=== PATIENT | male | born 1975 | race Caucasian/White ===

== ENCOUNTER 2022-06-11 11:22 | Outpatient (CLI) | payer MEDICAID, SELFPAY ==
--- NOTE | 2022-06-11 10:00 | DI.RAD_ITS ---
Exam(s) XR FOOT LT COMPLETE EXAM: XR FOOT LT COMPLETE CLINICAL HISTORY: L foot ulcer, neuropathic, L98.499. TECHNIQUE: 2D digital imaging was performed. Four views. Additional sesamoid view. COMPARISON: CR XR FOOT COMPLETE MIN 3V LT from 06/02/2022 FINDINGS: BONES: No acute fracture is present. No bony destructive lesion is seen. Heel spurs. Sesamoids are un remarkable. JOINTS: No dislocation present. Mild degenerative changes. Plantar arch is maintained. SOFT TISSUE: Linear metallic density again noted the plantar aspect of heel. Soft tissue swelling not ed at the medial aspect of the foot at the level of the MTP joints. No gas collection. IMPRESSION: Soft tissue swelling. DATA REPOSITORY: RADIATION DOSE DELIVERED:
== END 2022-06-11 11:42 ==
LOC: DI 11:27
PROVIDERS: PCP Family Medicine; Visit Provider Podiatrist Foot & Ankle Surgery
DX: L97.529 Non-pressure chronic ulcer of other part of left foot with unspecified severity (principal); M79.89 Other specified soft tissue disorders
CPT/HCPCS: 73630

== ENCOUNTER 2022-06-11 13:15 | Outpatient (CLI) | payer MEDICAID, SELFPAY | END 2022-06-11 13:16 | disposition home or self-care (01) | LOC: LBO 13:16 | PROVIDERS: PCP Family Medicine; Visit Provider Podiatrist Foot & Ankle Surgery | DX: L97.528 Non-pressure chronic ulcer of other part of left foot with other specified severity (principal); G62.9 Polyneuropathy, unspecified; R70.0 Elevated erythrocyte sedimentation rate | CPT/HCPCS: 36415; 80048; 85652; 86141; 85025 ==

== ENCOUNTER 2022-06-19 01:16 | Outpatient (CLI) | payer MEDICAID, SELFPAY ==
--- NOTE | 2022-06-19 07:45 | DI.MRI_ITS ---
Exam(s) MR LOWER EXTREMITY LT WO/W CLINICAL HISTORY: L foot ulcer, probe to bone,NEUROPATHIC ULCER,L98.535. TECHNIQUE: Multiplanar multisequence MRI was performed. CONTRAST MATERIAL: IV Contrast: 18 mL of Dotarem contrast administered. COMPARISON: 02 June 2022 and 19 June 2022 plain films FINDINGS: Exam is somewhat limited by motion and poor fat suppression particularly in the region of the toes. BONES/JOINTS: No fracture or contusion pattern. No bone lesions identified. The talar dome is smooth. evidence of osteomyelitis. Fluid seen posterior to the talocalcaneal joint. MUSCULOTENDINOUS STRUCTURES: Achilles tendon is intact. The planar fascia is unremarkable. flexor, e xtensor, and peroneal tendons are intact. SOFT TISSUES: Metallic artifact seen in the region of the plantar soft tissues at the level of the he el. A tiny metallic foreign body is noted on plain films. Additional metallic artifact is seen in t he plantar soft tissues at the level of the 1st MTP joint. There is edema and enhancement in the sof t tissues around the 1st MTP joint and proximal phalanx, greater medially. There is no drainable collection. IMPRESSION: Findings consistent with cellulitis at the level of the 1st metatarsal head and proximal phalanx. No abscess or osteomyelitis. Metallic foreign bodies. DATA REPOSITORY:
[2022-06-19] MEDS: Gadoterate meglumine 20 ML VIAL IVP (16:22)
[2022-06-19] MEDS: Normal Saline Flush 10 ML SYR IVP (16:22)
== END 2022-06-19 01:36 ==
LOC: DI 01:16
PROVIDERS: PCP Family Medicine; Visit Provider Podiatrist Foot & Ankle Surgery
DX: L97.528 Non-pressure chronic ulcer of other part of left foot with other specified severity (principal); L03.116 Cellulitis of left lower limb; M79.5 Residual foreign body in soft tissue
CPT/HCPCS: 73720

== ENCOUNTER → 2022-12-18 01:21 | Outpatient (CLI) | payer MEDICAID, SELFPAY ==
--- NOTE | 2022-12-18 | DI.MRI_ITS ---
Exam(s) MR LOWER EXTREMITY LT WO/W CLINICAL HISTORY: CHRONIC ULCER LT FOOT,L97.522,WORSENING WOUND,? BONE INFECTION. TECHNIQUE: Multiplanar multisequence MRI was performed. CONTRAST MATERIAL: IV Contrast: 20 mL of Dotarem contrast administered. COMPARISON: Interpreted without benefit of recent comparison plain films. FINDINGS: Exam is limited by motion. BONES/JOINTS: No fracture or contusion pattern. No bone lesions identified. No high signal or enhanc ement in the marrow. MUSCULOTENDINOUS STRUCTURES: Visualized tendons appear intact. SOFT TISSUES: A marker was placed over the area of concern at the plantar aspect at the level of the 1st MTP joint. There is a artifact is in this area in the skin which could represent air correspondi ng to the ulcer. There is no drainable collection. There is edema and postcontrast enhancement in t he soft tissues. This is consistent with cellulitis. IMPRESSION: Cellulitis and soft tissue wound at the plantar aspect and medial aspect at the level of the 1st MTP joint. No evidence of osteomyelitis. DATA REPOSITORY:
[2022-12-18] MEDS: Gadoterate meglumine 20 ML VIAL IVP (10:40)
[2022-12-18] MEDS: Normal Saline Flush 10 ML SYR IVP (10:41)
== END ==
PROVIDERS: PCP Family Medicine; Visit Provider Podiatrist Foot & Ankle Surgery
DX: L97.522 Non-pressure chronic ulcer of other part of left foot with fat layer exposed (principal); L03.90 Cellulitis, unspecified
CPT/HCPCS: 73720

== ENCOUNTER 2023-09-22 16:02 | Outpatient (REF) | payer MEDICAID, SELFPAY | END 2023-09-22 16:03 | disposition home or self-care (01) | LOC: LBN 16:02 | PROVIDERS: PCP Family Medicine; Visit Provider Podiatrist | DX: L97.528 Non-pressure chronic ulcer of other part of left foot with other specified severity (principal) | CPT/HCPCS: 87070; 87075; 87205 ==

== ENCOUNTER 2024-01-12 12:31 | Outpatient (CLI) | payer OTHER, SELFPAY ==
--- NOTE | 2024-01-12 12:00 | DI.RAD_ITS ---
Exam(s) XR FOOT RT COMPLETE EXAM: XR FOOT RT COMPLETE CLINICAL HISTORY: M79.671 pain Rt foot- Comparison views. TECHNIQUE: 2D digital imaging was performed. Three views. COMPARISON: None FINDINGS: BONES: No acute fracture is present. No bony destructive lesion is seen. Heel spurs. JOINTS: No dislocation present. Mild intertarsal degenerative changes. Plantar arch is maintained. SOFT TISSUE: Normal. IMPRESSION: Mild degenerative changes and heel spurs. DATA REPOSITORY: RADIATION DOSE DELIVERED:
--- NOTE | 2024-01-12 12:05 | DI.RAD_ITS ---
Exam(s) XR FOOT LT COMPLETE EXAM: XR FOOT LT COMPLETE CLINICAL HISTORY: L97.522 Patient MPJ ulcer right. OM?. TECHNIQUE: 2D digital imaging was performed. Three views. COMPARISON: CR XR FOOT LT COMPLETE from 06/11/2022 MR MR LOWER EXTREMITY LT WO/W from 06/19/2022 MR MR LOWER EXTREMITY LT WO/W from 12/18/2022 FINDINGS: BONES: No acute fracture is present. No bony destructive lesion is seen. Heel spurs. JOINTS: No dislocation present. Mild degenerative changes the intertarsal articulations. SOFT TISSUE: Soft tissue swelling again noted medial to 1st MTP joint. Linear metallic density again noted in plantar aspect beneath calcaneus. IMPRESSION: Soft tissue swelling medial to 1st MTP joint. No evidence of osteomyelitis. DATA REPOSITORY: RADIATION DOSE DELIVERED:
== END 2024-01-12 12:51 ==
PROVIDERS: PCP Family Medicine; Visit Provider Podiatrist
DX: L97.522 Non-pressure chronic ulcer of other part of left foot with fat layer exposed (principal); M79.671 Pain in right foot
CPT/HCPCS: 73630

== ENCOUNTER 2024-01-15 11:34 | Outpatient (CLI) | payer OTHER, SELFPAY ==
--- NOTE | 2024-01-15 11:45 | RT.EKG_ITS ---
APPROVED REPORT Exam: Resting ECG Reason for Exam: need for antibiotics for wound- sugguested by [facility] [place] Patient Location: O HR:85 bpm ECG Measurements Heart Rate 85 AXIS OR 164 P 62 QRSd 94 QRS 15 QT 378 T 34 QTc 450 Conclusion Sinus rhythm...normal P axis, V-rate 50- 99 Normal Electrocardiogram
== END 2024-01-15 11:35 | disposition home or self-care (01) ==
LOC: CARDOPNVT 11:34
PROVIDERS: PCP Family Medicine; Visit Provider Podiatrist
DX: R94.31 Abnormal electrocardiogram [ECG] [EKG]
CPT/HCPCS: 93005; 93010

== ENCOUNTER 2024-02-02 14:51 | Outpatient (CLI) | payer OTHER, SELFPAY ==
[2024-02-02 14:10] LABS: Abs Immature Grans 0.02 10^3/uL (0.0-0.06); Absolute Basophil Count 0.06 10^3/uL (0.0-0.2); Absolute Eosinophil Count 0.18 10^3/uL (0.0-0.7); Absolute Lymphocyte Count 2.48 10^3/uL (1.2-3.4); Absolute Monocyte Count 0.44 10^3/uL (0.1-0.8); Basophils % 0.7 %; Eosinophils % 2.2 %; HCT 44.2 % (40.0-50.0); Immature Grans % 0.2 %; Lymphocytes % 30.3 %; MCH 30.2 pg (27.0-33.0); MCHC 33.9 % (32.0-36.0); MCV 89 fL (80-95); MPV 10.1 fL (8.0-11.0); Monocytes % 5.4 %; Neutrophils % 61.2 %; Platelet Count 198 10^3/uL (130-400); RBC 4.97 10^6/uL (4.36-5.78); RDW 12.7 % (11.8-14.1); RDW-SD 41.6 fL; WBC 8.18 10^3/uL (4.4-10.8)
[2024-02-02 14:12] LABS: ESR 18 mm/hr (0-20)
[2024-02-02 14:17] LABS: Hemoglobin A1C 5.7 % (<5.7)
[2024-02-02 14:57] LABS: C-Reactive Protein 1.64 mg/dL (<or=0.5)
== END 2024-02-02 14:52 | disposition home or self-care (01) ==
LOC: LBO 14:53
PROVIDERS: PCP Family Medicine; Visit Provider Podiatrist
DX: L97.522 Non-pressure chronic ulcer of other part of left foot with fat layer exposed (principal); Z09 Encounter for follow-up examination after completed treatment for conditions other than malignant neoplasm; Z51.89 Encounter for other specified aftercare; M79.671 Pain in right foot; B07.0 Plantar wart; G62.9 Polyneuropathy, unspecified; L98.499 Non-pressure chronic ulcer of skin of other sites with unspecified severity; L84 Corns and callosities; L03.90 Cellulitis, unspecified
CPT/HCPCS: 36415; 85652; 83036; 85025; 86140

== ENCOUNTER 2024-02-26 01:42 | Outpatient (CLI) | payer OTHER, SELFPAY ==
--- NOTE | 2024-02-26 06:15 | DI.MRI_ITS ---
Exam(s) MR LOWER EXTREMITY LT WO EXAM: MR LOWER EXTREMITY LT WO CLINICAL HISTORY: Osteomyelitis 1st MPJ,ulcer lt foot,m86.9,l97.522 TECHNIQUE: Multiplanar multisequence MRI was performed without intravenous contrast. COMPARISON: MR MR LOWER EXTREMITY LT WO/W from 12/18/2022 CR XR FOOT LT COMPLETE from 01/12/2024 FINDINGS: Quality of images on this study is significantly limited by motion artifact on all sequences. Many s equences were repeated but still exhibit motion artifact SKIN: There is an ulcer on the undersurface of the foot subjacent to the head of the great toe metata rsal. BONES/JOINTS: No evidence of fracture. There is a small joint effusion in the great toe metatarsopha langeal joint. There are mild degenerative changes in this joint. There is no intraosseous signal a bnormality to suggest osteomyelitis in the great toe metatarsal head and proximal phalanx. With resp ect to the sesamoid bones at this level, the more lateral of the 2 sesamoid bones exhibits normal mar row signal. However, the more medial of the 2 sesamoid bones at this level exhibits mild marrow hypo intensity on T1 images and mild increased signal on STIR sequence but difficult to assess accurately because of the amount of motion artifact here. There is no other suspicious intraosseous signal abno rmality in the field of view. SOFT TISSUES: More posteriorly in the foot there is assessed barely artifact in the heel pad region. This is explained by the thin metallic wire foreign body seen in the subcutaneous tissues at this lo cation on prior plain films. IMPRESSION: 1. Ulcer on the undersurface of the great toe. No evidence of osteomyelitis in the great toe metatar dea, metatarsal head and phalanges of the great toe. 2. However, the more medial of the 2 sesamoid bones subjacent to the great toe metatarsal head exhibi ts very subtle signal abnormality. It would be difficult to make a diagnosis of osteomyelitis with t his finding and the amount of motion artifact here and without IV contrast injection. The adjacent m ore lateral the 2 sesamoid bones at this level exhibits normal intraosseous signal. 3. Foreign body causing artifact in the posterior aspect of the undersurface of the foot, as describe d above. DATA REPOSITORY:
== END 2024-02-26 02:02 ==
LOC: DI 01:42
PROVIDERS: PCP Family Medicine; Visit Provider Podiatrist
DX: M86.9 Osteomyelitis, unspecified (principal); L97.522 Non-pressure chronic ulcer of other part of left foot with fat layer exposed
CPT/HCPCS: 73718

== ENCOUNTER 2024-03-07 12:57 | Outpatient (CLI) | payer OTHER, SELFPAY ==
[2024-03-07 12:17] LABS: Abs Immature Grans 0.02 10^3/uL (0.0-0.06); Absolute Basophil Count 0.06 10^3/uL (0.0-0.2); Absolute Eosinophil Count 0.29 10^3/uL (0.0-0.7); Absolute Monocyte Count 0.83 10^3/uL (0.1-0.8); Basophils % 0.6 %; Eosinophils % 2.7 %; HCT 42.7 % (40.0-50.0); HGB 14.7 g/dL (13.5-17.5); Immature Grans % 0.2 %; MCH 30.3 pg (27.0-33.0); MCHC 34.4 % (32.0-36.0); MCV 88 fL (80-95); MPV 10.3 fL (8.0-11.0); Monocytes % 7.8 %; Neutrophils % 54.7 %; Platelet Count 206 10^3/uL (130-400); RBC 4.85 10^6/uL (4.36-5.78); RDW 12.5 % (11.8-14.1); RDW-SD 40.7 fL
[2024-03-07 12:19] LABS: ESR 20 mm/hr (0-20)
[2024-03-07 13:11] LABS: C-Reactive Protein 2.36 mg/dL (<or=0.5)
== END 2024-03-07 12:58 | disposition home or self-care (01) ==
LOC: LBO 12:58
PROVIDERS: PCP Family Medicine; Visit Provider Podiatrist
DX: M86.9 Osteomyelitis, unspecified (principal)
CPT/HCPCS: 36415; 85652; 85025; 86140

== ENCOUNTER 2024-03-07 13:12 | Outpatient (CLI) | payer OTHER, SELFPAY ==
--- NOTE | 2024-03-07 11:00 | DI.RAD_ITS ---
Exam(s) XR FOOT LT COMPLETE EXAM: XR FOOT LT COMPLETE CLINICAL HISTORY: OM? M86.9 OSTEOMYELITIS. TECHNIQUE: 2D digital imaging was performed of the left foot. Four images were obtained. AP, obliq ue and lateral views were obtained. COMPARISON: CR XR FOOT LT COMPLETE from 01/12/2024 MR MR LOWER EXTREMITY LT WO from 02/26/2024 FINDINGS: BONES: No acute fracture is present. There does appear to be loss of the cortex along the plantar georgiana face of the proximal phalanx of the great toe at the base (image 3). There is a small calcaneal oste ophyte. There is an enthesophyte at the posterior calcaneus. JOINTS: No dislocation present. SOFT TISSUE: No soft tissue gas is present. The previously seen linear metallic density in the soft tissues in the heel is no longer visualized. IMPRESSION: 1. Loss of the cortex at the base of the proximal phalanx of the great toe on the plantar surface. O steomyelitis should be considered. 2. Interval removal of the linear foreign body in the soft tissues of the heel. DATA REPOSITORY: RADIATION DOSE DELIVERED:
== END 2024-03-07 13:32 ==
LOC: DI 13:15
PROVIDERS: PCP Family Medicine; Visit Provider Podiatrist
DX: M86.9 Osteomyelitis, unspecified (principal)
CPT/HCPCS: 73630

== ENCOUNTER 2024-03-07 14:51 | Outpatient (REF) | payer OTHER, SELFPAY | END 2024-03-07 14:52 | disposition home or self-care (01) | LOC: LBN 14:51 | PROVIDERS: PCP Family Medicine; Visit Provider Podiatrist | DX: L03.90 Cellulitis, unspecified (principal); L97.522 Non-pressure chronic ulcer of other part of left foot with fat layer exposed | CPT/HCPCS: 87077; 87070; 87075; 87186; 87205 ==

== ENCOUNTER 2024-03-23 11:51 | Outpatient (CLI) | payer OTHER, SELFPAY ==
--- NOTE | 2024-03-23 10:45 | DI.RAD_ITS ---
Exam(s) XR FOOT LT COMPLETE EXAM: XR FOOT LT COMPLETE CLINICAL HISTORY: ulcer sub 1st met head, Osteomylitis M86.9. TECHNIQUE: 2D digital imaging was performed. COMPARISON: CR XR FOOT LT COMPLETE from 03/07/2024 FINDINGS: Four views. No evidence of fracture or diastasis of the Lisfranc joint. Mild hallux valgus. Great toe metatarso phalangeal joint otherwise unremarkable. There is mild pes planus. Moderate size inferior calcaneal spur noted as well as an enthesophyte on the posterior calcaneus Achilles insertion site There is no evidence of osteomyelitis in the metatarsals. On the tangential view there is no obvious evidence of osteomyelitis in the 2 sesamoid bones subjacent to the great toe metatarsal head. No ra diopaque foreign body. IMPRESSION: No obvious evidence of osteomyelitis. DATA REPOSITORY: RADIATION DOSE DELIVERED:
== END 2024-03-23 12:11 ==
LOC: DI 11:52
PROVIDERS: PCP Family Medicine; Visit Provider Podiatrist
DX: M86.9 Osteomyelitis, unspecified (principal)
CPT/HCPCS: 73630

== ENCOUNTER 2024-04-14 03:41 | Outpatient (CLI) | payer BC, SELFPAY ==
--- NOTE | 2024-04-14 12:34 | DI.RAD_ITS ---
Exam(s) XR FOOT LT COMPLETE EXAM: XR FOOT LT COMPLETE CLINICAL HISTORY: ulcer subfirst metarsal head,m86.9,osteomyelitis. TECHNIQUE: 2D digital imaging was performed of the left foot. Four images were obtained. AP, obliq ue and lateral views were obtained. COMPARISON: CR XR FOOT LT COMPLETE from 03/23/2024 FINDINGS: BONES: No acute fracture is present. No bony destructive lesion is seen. There is an enthesophyte at the posterior calcaneus. There is a small plantar calcaneal spur. JOINTS: No dislocation present. The joint spaces are well maintained. SOFT TISSUE: No soft tissue gas is present. IMPRESSION: No radiographic evidence to suggest osteomyelitis. DATA REPOSITORY: RADIATION DOSE DELIVERED:
== END 2024-04-14 04:01 ==
PROVIDERS: PCP Family Medicine; Visit Provider Podiatrist
DX: M77.32 Calcaneal spur, left foot (principal)
CPT/HCPCS: 73630

== ENCOUNTER 2024-05-30 12:36 | Outpatient (CLI) | payer BC, SELFPAY ==
--- NOTE | 2024-05-30 11:15 | DI.RAD_ITS ---
Exam(s) XR FOOT LT COMPLETE EXAM: XR FOOT LT COMPLETE CLINICAL HISTORY: osteomyelitis M86.9. TECHNIQUE: 2D digital imaging was performed of the left foot. Three images were obtained. AP, obli que and lateral views were obtained. COMPARISON: CR XR FOOT LT COMPLETE from 04/14/2024 FINDINGS: BONES: No acute fracture is present. No bony destructive lesion is seen. There is an enthesophyte at the posterior calcaneus. There is a small plantar calcaneal spur. JOINTS: No dislocation present. SOFT TISSUE: There appears to be a soft tissue defect on the plantar surface of the foot in the regio n of the 1st MTP joint. The underlying bones are intact. This may represent an ulcer. No soft tiss ue gas is seen. IMPRESSION: No radiographic evidence to suggest osteomyelitis. DATA REPOSITORY: RADIATION DOSE DELIVERED:
== END 2024-05-30 12:56 ==
LOC: DI 12:36
PROVIDERS: PCP Family Medicine; Visit Provider Podiatrist
DX: M86.9 Osteomyelitis, unspecified (principal)
CPT/HCPCS: 73630

== ENCOUNTER 2024-05-30 15:17 | Outpatient (CLI) | payer BC, SELFPAY ==
[2024-05-30 15:23] LABS: Abs Immature Grans 0.03 10^3/uL (0.0-0.06); Absolute Basophil Count 0.07 10^3/uL (0.0-0.2); Absolute Eosinophil Count 0.23 10^3/uL (0.0-0.7); Absolute Lymphocyte Count 3.02 10^3/uL (1.2-3.4); Absolute Monocyte Count 0.67 10^3/uL (0.1-0.8); Absolute Neutrophil Count 4.61 10^3/uL (1.2-6.7); Basophils % 0.8 %; Eosinophils % 2.7 %; HCT 49.5 % (40.0-50.0); HGB 16.5 g/dL (13.5-17.5); Immature Grans % 0.3 %; MCH 29.4 pg (27.0-33.0); MCHC 33.3 % (32.0-36.0); MCV 88 fL (80-95); MPV 9.7 fL (8.0-11.0); Monocytes % 7.8 %; Neutrophils % 53.4 %; Platelet Count 274 10^3/uL (130-400); RBC 5.62 10^6/uL (4.36-5.78); RDW 12.7 % (11.8-14.1); RDW-SD 41.1 fL; WBC 8.63 10^3/uL (4.4-10.8)
[2024-05-30 16:27] LABS: ALT 42 U/L (16-63); AST 28 U/L (15-37); Alkaline Phosphatase 87 U/L (46-116); Anion Gap 12.4 mmol/L (3-11); BUN 7 mg/dL (7-18); Bilirubin, Total 0.42 mg/dL (0.2-1.0); C-Reactive Protein 2.05 mg/dL (<or=0.5); CO2 26.6 mmol/L (21.0-32.0); CREATININE 0.9 mg/dL (0.70-1.30); Calcium 9.8 mg/dL (8.5-10.1); Chloride 104 mmol/L (98-107); Glucose 158 mg/dL (74-106); Potassium 3.9 mmol/L (3.5-5.1); Sodium 143 mmol/L (136-145); Total Protein 8.4 g/dL (6.4-8.2)
[2024-05-30 16:49] LABS: ESR 30 mm/hr (0-20)
== END 2024-05-30 15:18 | disposition home or self-care (01) ==
LOC: LBO 15:18
PROVIDERS: PCP Family Medicine; Visit Provider Podiatrist
DX: M86.9 Osteomyelitis, unspecified (principal); Z09 Encounter for follow-up examination after completed treatment for conditions other than malignant neoplasm; Z51.89 Encounter for other specified aftercare; L97.522 Non-pressure chronic ulcer of other part of left foot with fat layer exposed; M79.671 Pain in right foot; B07.0 Plantar wart; G62.9 Polyneuropathy, unspecified; L98.499 Non-pressure chronic ulcer of skin of other sites with unspecified severity; L84 Corns and callosities; L03.90 Cellulitis, unspecified
CPT/HCPCS: 36415; 80053; 85652; 85025; 86140

== ENCOUNTER 2024-08-04 02:01 | Outpatient (CLI) | payer BC, SELFPAY ==
--- NOTE | 2024-08-04 08:00 | DI.RAD_ITS ---
Exam(s) XR FOOT LT COMPLETE EXAM: XR FOOT LT COMPLETE CLINICAL HISTORY: Ulcer sub left 1st met head,osteomyelitis,m86.9. TECHNIQUE: 2D digital imaging was performed. Four views, with additional sesamoid view. COMPARISON: CR XR FOOT LT COMPLETE from 05/30/2024 FINDINGS: BONES: No acute fracture is present. No bony destructive lesion is seen. JOINTS: No dislocation present. Mild degenerative changes. SOFT TISSUE: Soft tissue swelling and ulcer around 1st metatarsal. IMPRESSION: No visible bony erosions. DATA REPOSITORY: RADIATION DOSE DELIVERED:
== END 2024-08-04 02:21 ==
LOC: DI 02:02
PROVIDERS: PCP Family Medicine; Visit Provider Podiatrist
DX: M86.9 Osteomyelitis, unspecified (principal)
CPT/HCPCS: 73630

== ENCOUNTER 2024-08-04 15:50 | Outpatient (CLI) | payer BC, SELFPAY ==
[2024-08-04 13:38] LABS: Abs Immature Grans 0.02 10^3/uL (0.0-0.06); Absolute Basophil Count 0.08 10^3/uL (0.0-0.2); Absolute Eosinophil Count 0.22 10^3/uL (0.0-0.7); Absolute Lymphocyte Count 3.23 10^3/uL (1.2-3.4); Absolute Monocyte Count 0.53 10^3/uL (0.1-0.8); Absolute Neutrophil Count 5.06 10^3/uL (1.2-6.7); Basophils % 0.9 %; Eosinophils % 2.4 %; HCT 45.7 % (40.0-50.0); HGB 15.7 g/dL (13.5-17.5); Immature Grans % 0.2 %; Lymphocytes % 35.3 %; MCH 30.4 pg (27.0-33.0); MCHC 34.4 % (32.0-36.0); MCV 89 fL (80-95); Monocytes % 5.8 %; Neutrophils % 55.4 %; Platelet Count 210 10^3/uL (130-400); RBC 5.16 10^6/uL (4.36-5.78); RDW 12.7 % (11.8-14.1); RDW-SD 41.4 fL; WBC 9.14 10^3/uL (4.4-10.8)
[2024-08-04 13:42] LABS: ESR 17 mm/hr (0-20)
[2024-08-04 14:33] LABS: Vitamin D 25 Total 32 ng/mL (30-100)
[2024-08-04 14:42] LABS: C-Reactive Protein 1.82 mg/dL (<or=0.5)
== END 2024-08-04 15:51 | disposition home or self-care (01) ==
LOC: LBO 15:51
PROVIDERS: PCP Family Medicine; Visit Provider Podiatrist
DX: M86.9 Osteomyelitis, unspecified (principal); L97.929 Non-pressure chronic ulcer of unspecified part of left lower leg with unspecified severity; R79.89 Other specified abnormal findings of blood chemistry
CPT/HCPCS: 36415; 82306; 85652; 85025; 86140

== ENCOUNTER 2024-12-28 14:23 | Outpatient (CLI) | payer MEDICAID, SELFPAY ==
--- NOTE | 2024-12-28 | DI.RAD_ITS ---
Exam(s) XR FOOT LT COMPLETE EXAM: XR FOOT LT COMPLETE CLINICAL HISTORY: non healing ulcer of left ext. TECHNIQUE: 2D digital imaging was performed. Four views with additional sesamoid view. COMPARISON: CR XR FOOT LT COMPLETE from 04/14/2024 CR XR FOOT LT COMPLETE from 05/30/2024 CR XR FOOT LT COMPLETE from 08/04/2024 FINDINGS: Exam is mildly limited by overlying socks. BONES: No acute fracture is present. There are erosions visible involving both medial and lateral 1st metatarsal sesamoids which were not apparent previously. The findings are suspicious for osteomyelitis. Heel spurs again noted. JOINTS: No dislocation present. There are degenerative changes at the talonavicular joint with dorsal spurring. SOFT TISSUE: There is soft tissue swelling and an ulcer at the plantar aspect beneath the level of the 1st metatarsal head. IMPRESSION: Erosions at both 1st metatarsal sesamoids with overlying soft tissue swelling and ulceration. The findings are suspicious for osteomyelitis. DATA REPOSITORY: RADIATION DOSE DELIVERED:
== END 2024-12-28 14:43 ==
LOC: DI 14:24
PROVIDERS: PCP Family Medicine; Visit Provider Podiatrist
DX: R93.89 Abnormal findings on diagnostic imaging of other specified body structures (principal)
CPT/HCPCS: 73630

== ENCOUNTER 2025-01-05 04:33 | Outpatient (CLI) | payer MEDICAID, SELFPAY ==
--- NOTE | 2025-01-05 08:00 | DI.MRI_ITS ---
Exam(s) MR LOWER EXTREMITY LT WO/W CLINICAL HISTORY: ? sesamoid osteo,? 1st mpj osteo,nonhealing ulcer lle, ulcer lt foot. TECHNIQUE: Multiplanar multisequence MRI was performed. CONTRAST MATERIAL: IV Contrast: 18 mL of Dotarem contrast administered. COMPARISON: Plain films 28 December 2024 FINDINGS: Exam is extremely limited by motion. BONES/JOINTS: The sesamoids are blurred by motion. The sequence with the least amount of blurring is the T1 axial and sagittal sequences with which suggest edema in both 1st metatarsal sesamoid bones. SOFT TISSUES: There is some soft tissue edema around the 1st metatarsal head. There is metallic artifact on at the plantar aspect of the foot at the level of the 1st and 2nd proximal phalanges. There is no drainable fluid collection or evidence of abscess. ENHANCEMENT: There is soft tissue enhancement surrounding the plantar base of the 1st metatarsal head. IMPRESSION: The exam is extremely limited by motion. There is abnormal signal in the 1st metatarsal sesamoids with abnormal signal and surrounding enhancement. There were suspicious findings on previous plain films. The findings are consistent with osteomyelitis. DATA REPOSITORY:
[2025-01-05] MEDS: Gadoterate meglumine 20 ML SYRINGE IVP (15:24)
[2025-01-05] MEDS: Normal Saline Flush 10 ML SYR IVP (15:24)
== END 2025-01-05 04:53 ==
LOC: DI 04:33
PROVIDERS: PCP Family Medicine; Visit Provider Podiatrist
DX: L97.522 Non-pressure chronic ulcer of other part of left foot with fat layer exposed
CPT/HCPCS: 73720

== ENCOUNTER 2025-01-09 09:54 | Day surgery (SDC) | payer MEDICAID, SELFPAY ==
--- NOTE | 2025-01-09 09:35 | DI.RAD_ITS ---
Exam(s) XR FOOT LT LIMITED EXAM: XR FOOT LT LIMITED CLINICAL HISTORY: Nonhealing ulcer of left lower extremity TECHNIQUE: 2D and realtime digital imaging was performed. CONTRAST MATERIAL: Refer to procedure report. COMPARISON: No exams were available for comparison FINDINGS: Fluoroscopy was provided for Dr. Glaser during the performance of a sesamoidectomy. Please refer to the procedure report for complete details. Ka,r=0.13 mGy IMPRESSION: RADIATION DOSE DELIVERED: 0.0 0.0 0
[2025-01-09 10:15] VITALS: BP 128/102; PULSE 80; RESP 14; TEMP 36.4; O2SAT 99
[2025-01-09] MEDS: Lactated Ringers 1,000 ML 80 ML IV (10:36)
--- NOTE | 2025-01-09 10:40 | W.ANESPRE ---
General Info Date of Service Date Performed: 01/09/25 Height: 5 ft 9 in Weight: 87.2 kg Body Mass Index (BMI): 28.3 Surgical Procedure: Operation Date: 01/09/25 11:40 Proposed Procedure Side Surgeon p Surgical Offloading of Sesamoidectomy VS Sesamoid Planning w/Tendon Achilles Lengthing Vs Gastroc Recession Left Jessie Glaser DPM Meds Allergies and Home Medications Allergies Allergy/AdvReac Type Severity Reaction Status Date / Time No Known Allergies Allergy Verified 01/09/25 10:03 Home Medication ?Medication ?Instructions ?Recorded amitriptyline 50 mg tablet 50 mg PO QHS 02/13/22 aspirin 81 mg tablet,delayed 81 mg PO DAILY 02/13/22 release pregabalin 150 mg capsule (Lyrica) 150 mg PO TID 05/27/22 cholecalciferol (vitamin D3) 50 50 mcg PO DAILY 09/21/23 mcg (2,000 unit) tablet methadone 40 mg soluble tablet 45 mg PO DAILY 09/21/23 metoprolol succinate 50 mg 50 mg PO DAILY 09/21/23 tablet,extended release 24 hr salicylic acid 17 % topical gel 1 applic topical DAILY #7 grams 12/15/23 phytonadione (vitamin K1) 5 mg 5 mg PO DAILY 08/04/24 tablet gentamicin 0.1 % topical cream 1 applic topical QID #30 grams 08/25/24 amoxicillin .ROUTE 01/09/25 Current Visit Medications: Current Medications Generic Name Dose Route Start Last Admin Trade Name Freq PRN Reason Stop Dose Admin Ringer's Solution 1,000 mls @ 80 mls/hr 01/09/25 06:00 01/09/25 10:36 IV 02/05/25 23:59 80 mls/hr INFUSION TRAV Administration Cefazolin Sodium/Dextrose 2 gm in 50 mls @ 100 mls/hr 01/09/25 06:00 Ancef Duplex IVPB 02/05/25 23:59 PREOP TRAV IV Miscellaneous Supplies 1 each 01/09/25 06:00 Iv Access IV 02/05/25 23:59 DIRECTED TRAV Sodium Chloride 0 ml 01/09/25 06:00 Normal Saline Flush 10 Ml Syr IV 02/05/25 23:59 PRN PRN Sodium Chloride 0 ml 01/09/25 06:00 Normal Saline 10 Ml Vial IJ 02/05/25 23:59 DIRECTED PRN Sterile Water 0 ml 01/09/25 06:00 Water,Injection,Sterile 10 Ml Vial IJ 02/05/25 23:59 DIRECTED PRN PFSH Active Problems Active Problems: Problem Status Onset Code Osteomyelitis of left foot Acute M86.9 Receiving intravenous antibiotic treatment as outpatient Acute Z79.2 Low vitamin D level Acute R79.89 Nonhealing ulcer of left lower extremity Acute L97.929 Osteomyelitis Acute M86.9 Cellulitis Acute L03.90 Plantar verruca Acute B07.0 Pain in right foot Acute M79.671 Ulcer of left foot with fat layer exposed Acute L97.522 Tachycardia Acute R00.0 Peripheral nerve disease Acute G62.9 Idiopathic peripheral neuropathy Acute G60.9 Hypertriglyceridemia Acute E78.1 Hypertension Chronic I10 Cellulitis of foot, right Acute L03.115 Foot ulcer, left Acute L97.529 Anemia Chronic D64.9 Vitamin D deficiency Acute E55.9 Tobacco user Acute Z72.0 Hyperlipidemia Acute E78.5 Corns and callosities Acute L84 Neuropathy Acute G62.9 Neuropathic ulcer Acute L98.499 Medical History Medical History Superior labrum glkidvzz-[id number]-[id number] (SLAP) tear of left shoulder Surgical History Surgical History S/P colonoscopy 04/13/2019 Tobacco Smoking/Tobacco Use Status: Current-Occasional Tobacco Type: cigarettes Smoking packs per day: 0.75 Smoking cigarettes per day: 15.0 Passive smoking exposure: No Alcohol Alcohol Intake: never Substance Use Substance use: Daily Substance use type: marijuana Details: inhaled, daily, 1 gram daily, last use 01/09/25. Vital Signs and Lab Results Vital Signs Most Recent Vital Signs in EMR: Most Recent Vital Signs Temp Pulse Resp BP Pulse Ox 36.4 C L 80 14 128/102 H 99 01/09/25 10:15 01/09/25 10:15 01/09/25 10:15 01/09/25 10:15 01/09/25 10:15 Imaging and Studies Imaging and Studies Study information below may be from another EMR and interpreted by another provider. Please see original notes in EMR for more complete details. EKG Summary: 01/15/24: Exam: Resting ECG Reason for Exam: need for antibiotics for wound- sugguested by [facility] [place] Patient Location: O HR:85 bpm ECG Measurements Heart Rate 85 AXIS NM 164 P 62 QRSd 94 QRS 15 QT 378 T34 QTc 450 Conclusion Sinus rhythm...normal P axis, V-rate 50- 99 Normal Electrocardiogram Anesthesia Assessment and Plan Anesthesia History Personal History: No History of Anesthesia Complications Family History: No Family History of Anesthesia Complications Exercise Tolerance Exercise Tolerance: Metabolic Equivalents>4 Cardiac & Pulmonary Exam Cardiac Exam: Normal S1/S2 Heart Sounds Pulmonary Exam: Clear Bilateral Breath Sounds Implantable Cardiac Device Does patient have a Pacemaker or an ICD?: No Airway Exam Known Difficult Airway: No Mallampati Class: 2 Mouth Opening: Normal (> 3cm) Thyromental Distance: Greater than 3 cm Neck Range of Motion: Full ROM Neck Circumference: Normal Teeth Condition: Generalized Poor Dentition ASA Classification ASA Score: ASA 3 Emergency Case?: No NPO Status NPO Status: NPO Clears >2 hours, Solids >8 hours Anesthesia Plan Resuscitation Status: Full Code Anesthesia Technique: General Anesthesia Airway Planned: LMA Monitors Used: Standard Monitors
[2025-01-09 10:43] VITALS: BMI 28.3
[2025-01-09] MEDS: ceFAZolin 2 GM/50 ML BAG IVPB (12:15)
[2025-01-09] MEDS: Lidocaine 1% Pres-Free 30 ML VIAL (12:49)
--- NOTE | 2025-01-09 13:10 | BONE_PTH ---
PATIENT: Jose Sibley LOC: [facility] U#:[id number] AGE/SX: 49/M ROOM: RE01/09/[address]: Jessie Glaser DPM : 1975 BED: DIS: 01/09/2025 SPEC #: [id number] RECD: 01/09/25 14:45 STATUS: LEVI REQ #: [id number] ANDREZ: 01/09/25 13:[address]: Jessie Glaser DEPT: Surgical Specimen RECD BY: Mona Martin ENTERED: 01/09/25 14:46 SP TYPE: Bone OTHR DR: Tino Fong Tissues: 1 - BONE BX/CURRETTE NOT PATH FRACTURE 2 - BONE BX/CURRETTE NOT PATH FRACTURE Procedures: GROSS AND MICRO LEVEL 3 DECALCIFICATION Comments: [id number]
[2025-01-09 14:12] VITALS: BP 180/96; PULSE 60; RESP 14; TEMP 36.1; O2SAT 97
--- NOTE | 2025-01-09 14:30 | DI.RAD_ITS ---
Exam(s) XR FOOT LT COMPLETE EXAM: XR FOOT LT COMPLETE CLINICAL HISTORY: Postop. TECHNIQUE: 2D digital imaging was performed. COMPARISON: CR XR FOOT LT COMPLETE from 12/28/2024 FINDINGS: 3 postop views No evidence of fracture nor diastasis of the Lisfranc joint. The sesamoid bones subjacent to the great toe metatarsal head are not evident on the present images. Great toe metatarsophalangeal joint otherwise appears unremarkable. IMPRESSION: Satisfactory postop appearance DATA REPOSITORY: RADIATION DOSE DELIVERED:
--- NOTE | 2025-01-09 14:30 | W.PM.DSUDISC ---
Date of service: 01/09/25 Discharge Plan Disposition Patient Disposition: Home Condition: Stable Discharge Details Attending Provider: Jessie Glaser Primary Care Provider: Tino Fong Home Meds and New Rx's Prescriptions: No Action amitriptyline 50 mg tablet 50 mg PO QHS aspirin 81 mg tablet,delayed release (DR/EC) 81 mg PO DAILY phytonadione (vitamin K1) 5 mg tablet 5 mg PO DAILY pregabalin [Lyrica] 150 mg capsule 150 mg PO TID methadone 40 mg tablet,soluble 45 mg PO DAILY metoprolol succinate 50 mg tablet extended release 24 hr 50 mg PO DAILY cholecalciferol (vitamin D3) 50 mcg (2,000 unit) tablet 50 mcg PO DAILY salicylic acid 17 % gel 1 applic topical DAILY Qty: 7 0RF Rx Instructions: apply to each wart gentamicin 0.1 % cream 1 applic topical QID Qty: 30 0RF amoxicillin .ROUTE Rx Instructions: twice daily Discharge Instructions Additional Instructions: Patient to keep the dressings clean, dry and intact. Do not put any weight on the left foot. Please use your knee scooter. You have an appointment on . Keep dressings clean, dry and intact do not remove the dressings. Do not let the dressings get wet. Stand Alone Forms: Podiatry Instructions-DSU Activity:: Elevate Remove Dressings/Wound Care:: Do Not Remove Shower/Bathe:: Cover Diet:: Normal Diet Discharge Orders Discharge Orders: Discharge Order (Routine); Ordered 01/09/25 Ordered By: Jessie Glaser
--- NOTE | 2025-01-09 14:32 | W.ANESPOSTOP ---
Postoperative Evaluation Date, Time and Location Date Performed: 01/09/25 Time Performed: 14:32 Patient Location: Day Surgery Unit Vital Signs Most Recent Imported Vital Signs: Most Recent Vital Signs Temp Pulse Resp BP Pulse Ox 36.1 C L 60 14 180/96 H 97 01/09/25 14:12 01/09/25 14:12 01/09/25 14:12 01/09/25 14:12 01/09/25 14:12 Pain Score Most Recent Pain Score: Most Recent Pain Score Pain Level 0 01/09/25 14:12 Assessment Mental Status: Awake (Alert & Oriented to Patient Baseline) Airway and Respiratory Function: Patent airway with normal (patient baseline) respiratory exam Cardiovascular Function: Hemodynamically Stable Hydration Status: Adequately Hydrated Nausea & Vomiting: No Nausea or Vomiting Pain: Pt. Denies Any Pain Peripheral Nerve Block: Patient did not receive a nerve block
--- NOTE | 2025-01-09 14:44 | ROE_ITS ---
Operative Note Operative Note PRE-OP DIAGNOSIS: Gastrocnemius equinus, left Sesamoid osteomyelitis, left foot Full-thickness, nonhealing ulcer, left foot POST-OP DIAGNOSIS: same PROCEDURE: Gastrocnemius recession, left Tibial and fibular sesamoidectomy, left Preparation of wound bed for graft application?EpiFix application and complex closure of wound, left foot SURGEON: Jessie Glaser ANESTHESIA TYPE: Local By Surgeon (10 mL lidocaine plain 1% preoperatively) and General:No Airway Refer to Anesthesia Record ESTIMATED BLOOD LOSS: 75 PATHOLOGY: other (Tibial and fibular sesamoid, left foot) TOURNIQUET TIME: 70 COMPLICATIONS: None Patient was transported to: same day Implants: EpiFix Indications: This is a 49-year-old nondiabetic male patient with gastrocnemius equinus to the left lower extremity with resultant chronic nonhealing ulcer subleft foot. Patient has exhausted all conservative care. Recent x-rays showed osteomyelitis. MRI was taken and reviewed and showed osteomyelitis. Patient has failed antibiotics at this time. I discussed the risks, benefits and possible complications of the procedure including but not limited to pain, nerve pain, calcaneal gait, CRPS, nerve pain, delayed healing, nonhealing, recurrence of ulceration, hallux varus, hallux abductovalgus, difficulty with toe off, need for further surgery or amputation. Patient was advised that once ulcer is healed he will most likely require fusion of the first metatarsophalangeal joint to help restore gait. Patient understood and agreed. Medical clearance in. No contraindications to the procedure. Chart reviewed. Images were reviewed. Findings: Gastrocnemius equinus. Full-thickness ulcer subleft first metatarsal head measuring approximately 1 cm x 1 cm Procedure Description: Patient was brought to the operating room placed on the operating table in supine position. After induction of general and anesthesia, a thigh tourniquet was applied. A shama-incisional block was applied 2 cm distal to the gastrocnemius muscle belly medially as well as a proximal first metatarsal head block. The left lower extremity was then scrubbed, prepped and draped in the usual aseptic manner. An Esmarch was used for an sanguinous patient. The thigh tourniquet was then inflated. Next, an incision was planned approximately 2 cm distal to the gastrocnemius muscle belly at the medial aspect of the left leg. An incision was made using a sterile #15 blade through the skin and subcutaneous tissue. The fascia was then dissected using a sterile #15 blade, blunt dissection was then carried out to expose the muscle belly. The gastrocnemius aponeurosis was then identified. Next, the appropriate plane was identified using the plane finder. Next, the clear slotted cannula with the obturator was then inserted, an incision was then made laterally for the lateral portal. The cannula inadvertently came out, this was then reinserted, the directionality was noted to be different and another lateral portal incision was made using a sterile #15 blade. The cannula was then cleaned with the sterile swabs provided by the research professor of biostatistics. Next the scope was used to identify the correct plane which was then identified, the neurovascular bundle was not identified within the surgical site. A rasp was then used to rasp the aponeurosis. Next, the blade was used to cut the tendon medially, this was then reversed and then cut laterally. Excellent visualization was maintained throughout the procedure. The neurovascular bundle and was not identified throughout the procedure. The ankle was dorsiflexed and the equinus contracture was noted to be vastly removed. The incision site was then flushed with copious amounts of sterile saline. The fascia was then closed using 3-0 Vicryl. The skin was then reapproximated and coapted using 3-0 Prolene. Attention was then directed to the plantar aspect of the left foot where a full- thickness ulceration was needed subfirst metatarsal head. The medial sesamoid was easily palpated. Using a sterile #15 blade an incision was made full-t hickness to the level of bone, the medial sesamoid was then identified and removed using a rongeur after blunt dissection with a Orange, the medial sesamoid was then passed from the operative field to be sent to microbiology and pathology. Next, the lateral sesamoid was palpated and decision was made to make a 5 cm length near an longitudinal incision for adequate exposure this was made full-thickness, the FHL tendon was protected throughout the procedure. A sterile #15 blade was used for sharp dissection and exposure to the lateral sesamoid. The lateral sesamoid was then resected using a rongeur. This was then passed from the operative field. The medial sesamoid was passed from the operative field and sent to microbiology and pathology. Cultures were then obtained and sent. The incision site was flushed with copious amounts of sterile saline. EpiFix graft was then applied the tourniquet was then deflated. The incision site was then closed with 3 oh as well as 2-0 Prolene. The successfully closed the previous ulcer. An attempt was made at application of the jovan wound graft however, this was unsuccessful since there was leaks. This was then removed. Dressings were then applied with Xeroform gauze, 4 x 4, Kerlix. A posterior splint was then applied followed by an Tacos wrap with the ankle in dorsiflexed position to prevent readhesion. Patient is to keep the dressings clean, dry and intact. Patient was sent pain medication. He has an appointment to follow-up on . Date of Procedure: 01/09/25
[2025-01-09 15:00] VITALS: BP 134/93; PULSE 63; RESP 16; TEMP 36.5; O2SAT 95
== END 2025-01-09 15:10 | disposition home or self-care (01) ==
PROVIDERS: PCP Family Medicine; Visit Provider Podiatrist
PROC: (CPT 27687; principal; 2025-01-09 11:30)
DX: L97.522 Non-pressure chronic ulcer of other part of left foot with fat layer exposed (principal); G62.9 Polyneuropathy, unspecified; B07.9 Viral wart, unspecified; M86.8X7 Other osteomyelitis, ankle and foot; E55.9 Vitamin D deficiency, unspecified; G60.8 Other hereditary and idiopathic neuropathies; I10 Essential (primary) hypertension; E78.1 Pure hyperglyceridemia; F64.9 Gender identity disorder, unspecified; M21.542 Acquired clubfoot, left foot
CPT/HCPCS: 27687; 28315; 15275; 15004; 76000; 87077; Q4186; 73620; 73630; 87070; 87075; 87186; 87205; 88304; 88311; J0690; J1596; J2003; J2250; J2405; J2704; J3010

== ENCOUNTER 2025-01-12 11:30 | Outpatient (CLI) | payer MEDICAID, SELFPAY ==
[2025-01-12 12:06] LABS: Abs Immature Grans 0.04 10^3/uL (0.0-0.06); HCT 45.7 % (40.0-50.0); HGB 15.2 g/dL (13.5-17.5); Immature Grans % 0.4 %; MCH 29.6 pg (27.0-33.0); MCHC 33.3 % (32.0-36.0); MCV 89 fL (80-95); MPV 10.5 fL (8.0-11.0); Platelet Count 211 10^3/uL (130-400); RBC 5.14 10^6/uL (4.36-5.78); RDW 13.0 % (11.8-14.1); RDW-SD 42.5 fL; WBC 10.50 10^3/uL (4.4-10.8)
[2025-01-12 12:11] LABS: ESR 24 mm/hr (0-20)
[2025-01-12 12:43] LABS: ALT 21 U/L (16-63); AST 18 U/L (15-37); Albumin 3.8 g/dL (3.4-5.0); Alkaline Phosphatase 84 U/L (46-116); Anion Gap 10.3 mmol/L (3-11); BUN 7 mg/dL (7-18); Bilirubin, Total 0.4 mg/dL (0.2-1.0); C-Reactive Protein 8.69 mg/dL (<or=0.5); CO2 30.7 mmol/L (21.0-32.0); Calcium 9.6 mg/dL (8.5-10.1); Chloride 101 mmol/L (98-107); Estimated GFR 107.15 (mL/min/1.73m2); Glucose 115 mg/dL (74-106); Potassium 4.3 mmol/L (3.5-5.1); Sodium 142 mmol/L (136-145); Total Protein 8.2 g/dL (6.4-8.2)
== END 2025-01-12 11:31 | disposition home or self-care (01) ==
LOC: LBO 11:31
PROVIDERS: PCP Family Medicine; Visit Provider Podiatrist
DX: M86.9 Osteomyelitis, unspecified (principal)
CPT/HCPCS: 36415; 80053; 85652; 85025; 86140

== ENCOUNTER 2025-01-19 15:55 | Outpatient (REF) | payer MEDICAID, SELFPAY | END 2025-01-19 15:56 | disposition home or self-care (01) | LOC: LBN 15:55 | PROVIDERS: PCP Family Medicine; Visit Provider Podiatrist | DX: L97.929 Non-pressure chronic ulcer of unspecified part of left lower leg with unspecified severity (principal); M86.9 Osteomyelitis, unspecified | CPT/HCPCS: 87077; 87070; 87186; 87205 ==

== ENCOUNTER 2025-01-19 16:11 | Inpatient (IN) | payer MEDICAID, SELFPAY ==
--- NOTE | 2025-01-19 16:22 | W.EDPROG ---
Date of service: 01/19/25 Time of Service: 16:22 Medical Decision Making I received a prearrival notification from podiatry concerning this patient failing outpatient therapy with following recommendations: 1. Antibiotics with levofloxacin and vancomycin, 2. Hospitalization with labs, 3. X-ray but no need for emergent MRI, and 4. [place] [facility] [place]. Discharge Plan Discharge Details Primary Care Provider: Tino Fong ED Provider: Provider,Temporary Home Meds and New Rx's Prescriptions: No Action amitriptyline 50 mg tablet 50 mg PO QHS aspirin 81 mg tablet,delayed release (DR/EC) 81 mg PO DAILY phytonadione (vitamin K1) 5 mg tablet 5 mg PO DAILY pregabalin [Lyrica] 150 mg capsule 150 mg PO TID methadone 40 mg tablet,soluble 45 mg PO DAILY metoprolol succinate 50 mg tablet extended release 24 hr 50 mg PO DAILY cholecalciferol (vitamin D3) 50 mcg (2,000 unit) tablet 50 mcg PO DAILY salicylic acid 17 % gel 1 applic topical DAILY Qty: 7 0RF Rx Instructions: apply to each wart gentamicin 0.1 % cream 1 applic topical QID Qty: 30 0RF ciprofloxacin HCl 500 mg tablet 750 mg PO BID 14 Days Qty: 42 0RF amoxicillin .Route Rx Instructions: twice daily
[2025-01-19 16:31] VITALS: BP 135/88; PULSE 89; RESP 15; TEMP 36.7; O2SAT 98
[2025-01-19 16:35] VITALS: BP 135/88; PULSE 89; RESP 15; TEMP 36.7; O2SAT 98
--- NOTE | 2025-01-19 16:57 | W.ED.GENAD ---
Discharge Plan Disposition Patient Disposition: Admit to [facility] Condition: Stable Discharge Details Clinical Impression: Foot ulcer, left, Cellulitis of left foot Primary Care Provider: Tino Fong ED Provider: Ilya Gutierrez [place] Meds and New Rx's Prescriptions: No Action amitriptyline 50 mg tablet 50 mg PO QHS aspirin 81 mg tablet,delayed release (DR/EC) 81 mg PO DAILY phytonadione (vitamin K1) 5 mg tablet 5 mg PO DAILY pregabalin [Lyrica] 150 mg capsule 150 mg PO TID methadone 40 mg tablet,soluble 45 mg PO DAILY metoprolol succinate 50 mg tablet extended release 24 hr 50 mg PO DAILY cholecalciferol (vitamin D3) 50 mcg (2,000 unit) tablet 50 mcg PO DAILY salicylic acid 17 % gel 1 applic topical DAILY Qty: 7 0RF Rx Instructions: apply to each wart gentamicin 0.1 % cream 1 applic topical QID Qty: 30 0RF ciprofloxacin HCl 500 mg tablet 750 mg PO BID 14 Days Qty: 42 0RF amoxicillin .Route Rx Instructions: twice daily HPI General Date/Time Provider Initiated Documentation: 01/19/25 16:21. Limitations to Documentation: no limitations. Information obtained by: patient. History of Present Illness 50 year old M presents to the emergency department with the chief complaint of left foot cellulitis/wound , described as moderate, Patient started experiencing this year(s) (1) and it has been other (worsening). No relieving factors improve symptom(s), No exacerbating factors reported . Patient notes denies fever/chills. Patient did receive the following treatments prior to arrival, none Related Data Home Medications ?Medication ?Instructions ?Recorded ?Confirmed amitriptyline 50 mg tablet 50 mg PO QHS 02/13/22 01/19/25 aspirin 81 mg tablet,delayed 81 mg PO DAILY 02/13/22 01/19/25 release pregabalin 150 mg capsule (Lyrica) 150 mg PO TID 05/27/22 01/19/25 cholecalciferol (vitamin D3) 50 50 mcg PO DAILY 09/21/23 01/19/25 mcg (2,000 unit) tablet methadone 40 mg soluble tablet 45 mg PO DAILY 09/21/23 01/19/25 metoprolol succinate 50 mg 50 mg PO DAILY 09/21/23 01/19/25 tablet,extended release 24 hr salicylic acid 17 % topical gel 1 applic topical DAILY #7 grams 12/15/23 01/19/25 phytonadione (vitamin K1) 5 mg 5 mg PO DAILY 08/04/24 01/19/25 tablet gentamicin 0.1 % topical cream 1 applic topical QID #30 grams 08/25/24 01/19/25 amoxicillin .Route 01/09/25 01/19/25 ciprofloxacin HCl 500 mg tablet 750 mg (1.5 x 500 mg) PO BID 2 01/11/25 01/19/25 weeks #42 tabs Previous Rx's ?Medication ?Instructions ?Recorded salicylic acid 17 % topical gel 1 applic topical DAILY #7 grams 12/15/23 gentamicin 0.1 % topical cream 1 applic topical QID #30 grams 08/25/24 ciprofloxacin HCl 500 mg tablet 750 mg (1.5 x 500 mg) PO BID 2 01/11/25 weeks #42 tabs Allergies Allergy/AdvReac Type Severity Reaction Status Date / Time No Known Allergies Allergy Verified 01/19/25 16:33 General Stated Complaint: Cellulitis QASIM: 3 Review of Systems All systems reviewed & are unremarkable except as noted in HPI and below Constitutional Constitutional: Denies chills, Denies fever(s) and Denies weakness Cardiovascular Cardiovascular: Denies chest pain and Denies dyspnea Respiratory Respiratory: Denies cough and Denies dyspnea Gastrointestinal Gastrointestinal: Denies abdominal pain, Denies nausea and Denies vomiting Integumentary/Breasts Skin/Breast: Reports wounds Neurologic Neurologic: Denies weakness Exam Const General: no acute distress Orientation: alert HENAZ Head: normal to inspection Ears: external ears normal General nose exam: external nose normal Mouth: moist mucous membranes Eyes General: appearance normal, both eyes and all related structures Neck Neck: normal visual inspection Resp Effort & Inspection: normal respiratory effort and able to speak in complete sentences Cardio Rate: regular rate Skin General skin exam: no rashes or lesions noted Neuro General: patient alert and patient oriented x3 Extrem General: no cyanosis and no edema Psych Mental Status: mental status grossly normal Course Vital Signs Vital signs: Vital Signs Temperature 36.7 C 01/19/25 16:31 Pulse 89 01/19/25 16:31 Respiratory Rate 15 01/19/25 16:31 Blood Pressure 135/88 01/19/25 16:31 Pulse Oximetry 98 01/19/25 16:31 Temperature 36.7 C 01/19/25 16:35 Temperature Source Tympanic 01/19/25 16:31 Pulse 89 01/19/25 16:35 Respiratory Rate 15 01/19/25 16:35 Blood Pressure 135/88 01/19/25 16:35 Blood Pressure Position Sitting 01/19/25 16:31 Pulse Oximetry 98 01/19/25 16:35 Oxygen Delivery Method Room Air 01/19/25 16:31 Oxygen Flow Rate 0 01/19/25 16:31 Pain Level 0 01/19/25 16:35 Lab/Test Results Lab/Test Results: 01/19/25 16:27 Blood Blood Culture - Pending 01/19/25 16:27 Blood Blood Culture - Pending Medical Decision Making 50-year-old male has had a chronic wound in his left foot due to neuropathy and recently had a surgical procedure with podiatry, has been on Augmentin and ciprofloxacin for cellulitis and wound infection, comes in after cleaning of the podiatry office and he noticed continued purulent material so was sent here for admission for IV antibiotics. Patient denies systemic symptoms. No fevers or chills. He has an open wound with bone exposed on the left foot just proximal to the big toe. Some surrounding erythema, the leg itself is not swollen. I suspect osteomyelitis, will check cbc, cmp, esr and crp and blood cultures and obtain xrays. Wound culture is growing psueodomanas so will treat with vanco and zosyn Labs show mild elevation inflammatory markers otherwise no emergent findings. X-ray read as no acute findings. Will discuss with hospitalist about admission. Differential Diagnosis Differential Diagnosis: Osteomyelitis, cellulitis PFSH All Active Problems (Updated 01/19/25 @ 18:38 by Ilya Gutierrez MD) Cellulitis of left foot (Acute) Methadone maintenance therapy patient (Acute) Postoperative pain of extremity (Acute) Osteomyelitis of left foot (Acute) Receiving intravenous antibiotic treatment as outpatient (Acute) Low vitamin D level (Acute) Nonhealing ulcer of left lower extremity (Acute) Osteomyelitis (Acute) Cellulitis (Acute) Plantar verruca (Acute) Pain in right foot (Acute) Ulcer of left foot with fat layer exposed (Acute) Tachycardia (Acute) Peripheral nerve disease (Acute) Idiopathic peripheral neuropathy (Acute) Hypertriglyceridemia (Acute) Hypertension (Chronic) Cellulitis of foot, right (Acute) toe of right foot Foot ulcer, left (Acute) Anemia (Chronic) Vitamin D deficiency (Acute) Tobacco user (Acute) Hyperlipidemia (Acute) Corns and callosities (Acute) Neuropathy (Acute) Neuropathic ulcer (Acute) Medical History Superior labrum [id number] (SLAP) tear of left shoulder Surgical History S/P colonoscopy 04/13/2019 Family History Mother Alcohol use disorder Maternal Grandmother Stroke Social History Smoking/Tobacco Use Status: Current-Occasional Tobacco Type: cigarettes Smoking packs per day: 0.75 Smoking cigarettes per day: 15.0 Smoking risk assessment performed?: Yes Alcohol Intake: never Drug use: Daily Substance use type: marijuana Details: inhaled, daily, 1 gram daily, last use 01/09/25. Housing: house Do you feel safe at home: Yes Do you feel safe in your relationship?: Yes
[2025-01-19 17:08] LABS: Abs Immature Grans 0.03 10^3/uL (0.0-0.06); BE (Venous) 4 mmol/L (-2-3); HCO3 (Venous) 30 mmol/L (23-28); HCT 46.0 % (40.0-50.0); HGB 15.5 g/dL (13.5-17.5); Immature Grans % 0.3 %; MCH 29.5 pg (27.0-33.0); MCHC 33.7 % (32.0-36.0); MCV 88 fL (80-95); MPV 9.5 fL (8.0-11.0); O2 Sat (Venous) 77 %; Platelet Count 317 10^3/uL (130-400); RBC 5.26 10^6/uL (4.36-5.78); RDW 12.6 % (11.8-14.1); RDW-SD 40.4 fL; TCO2 (Venous) 26 mmol/L (24-29); WBC 9.90 10^3/uL (4.4-10.8); pCO2 (Venous) 54 mmHg (41-51); pO2 (Venous) 37 mmHg
[2025-01-19 17:12] LABS: ESR 38 mm/hr (0-20)
[2025-01-19] MEDS: VANCOMYCIN/WATER (PEG) 2 GM/400 ML BAG IVPB (17:19)
[2025-01-19 17:36] LABS: ALT 24 U/L (16-63); AST 17 U/L (15-37); Albumin 3.6 g/dL (3.4-5.0); Alkaline Phosphatase 85 U/L (46-116); Anion Gap 9.0 mmol/L (3-11); BUN 11 mg/dL (7-18); Bilirubin, Total 0.3 mg/dL (0.2-1.0); C-Reactive Protein 4.86 mg/dL (<or=0.5); CO2 30.0 mmol/L (21.0-32.0); Calcium 9.2 mg/dL (8.5-10.1); Chloride 100 mmol/L (98-107); Estimated GFR 106.48 (mL/min/1.73m2); Glucose 128 mg/dL (74-106); Magnesium 2.1 mg/dL (1.8-2.4); Potassium 3.7 mmol/L (3.5-5.1); Sodium 139 mmol/L (136-145); Total Protein 8.1 g/dL (6.4-8.2)
--- NOTE | 2025-01-19 17:38 | DI.RAD_ITS ---
Exam(s) XR FOOT LT COMPLETE EXAM: XR FOOT LT COMPLETE CLINICAL HISTORY: ?osteomyelitis. TECHNIQUE: 2D digital imaging was performed of the left foot. Three images were obtained. AP, oblique and lateral views were obtained. COMPARISON: CR XR FOOT LT COMPLETE from 06/11/2022 CR XR FOOT LT COMPLETE from 04/14/2024 CR XR FOOT LT COMPLETE from 12/28/2024 XA XR FOOT LT LIMITED from 01/09/2025 CR XR FOOT LT COMPLETE from 01/09/2025 FINDINGS: The patient's foot is wrapped in a dressing. BONES: No acute fracture is present. No bony destructive lesion is seen. There is an enthesophyte at the posterior calcaneus. There is a small plantar calcaneal spur. JOINTS: No dislocation present. SOFT TISSUE: Normal. The thin linear foreign body in the soft tissues of the heel is unchanged and has been present on all prior examinations. IMPRESSION: There is no radiographic evidence of osteomyelitis seen at this time. DATA REPOSITORY: RADIATION DOSE DELIVERED:
--- NOTE | 2025-01-19 19:28 | W.PM.HP.N ---
Date of service: 01/19/25 Time of Service: 19:28 Assessment and Plan Assessment and plan (1) Cellulitis of left foot: Start date: 01/19/25 Status: Acute Assessment and plan: This is a 50-year-old gentleman with chronic idiopathic neuropathy and numbness in his legs bilaterally now with the left side being present for at least 15 years. He has a nonhealing ulcer of the last 2 years at least and has been battling complete healing of the left foot ulcer under the first toe. He does see podiatry who wants him hospitalized for failure for treatment of his abscess with drainage on oral Cipro. He will be placed on IV Zosyn and vancomycin. Within 3 days podiatry will take him to the OR for further debridement. He does have some decreased circulation in his lower extremities and is a smoker. This may need to be further investigated prior to proceeding to amputation if this is we discussed. Patient is hoping not to have this progressed to amputation of the left first. He has a full code. (2) Methadone maintenance therapy patient: Status: Chronic Assessment and plan: Continue maintenance therapy once confirmed with clinic. (3) Idiopathic peripheral neuropathy: Status: Chronic Assessment and plan: Patient has had problems with this for least 15 years now progressing to the upper extremities as well. There is involvement of both lower extremities causing problems with recurrent ulcers. Continue follow-up with neurology and patient is on pregabalin. History of Present Illness History of Present Illness Chief Complaint: Worsening left foot ulcer status postdebridement on oral Cipro. Narrative: This is a 50-year-old male patient who has had progressive idiopathic peripheral neuropathy over the last 15 years with the left lower extremity affected more than the right. Over the last 5 years the right lower extremity has been involved. His idiopathic neuropathy started in the foot with numbness and progressed to both knees. Recently the patient has had this neuropathy involving both hands for about 1 year. He has been battling a left foot ulcer on the sole under the first toe for least 2 years. He had a previous ulcer on his right foot which healed within months. He does see podiatry and they have been debriding the wound and are concerned about progressive infection despite being on oral Cipro with debridement. He was sent to the ED for evaluation with imaging showing no obvious bone involvement or osteomyelitis and lab revealing elevated CRP. Patient will be admitted for IV antibiotic therapy including vancomycin and Zosyn with culture recently being performed on the wound. Podiatry will consult on the patient and bring him to the OR for debridement within the next 3 days. The patient is a smoker and has had some testing of his circulation in his feet with DYANA being decreased over the right more than left lower extremity. He has had no formal CTA with runoff to determine whether he has circulation problems complicating his neuropathy. He is a smoker. Patient will be admitted pending podiatry follow-up for debridement in the OR. He will be on IV antibiotic therapy if having failed oral Cipro. He is a full code. Review of Systems Narrative: 13 point review of system otherwise unrevealing or stable. [facility] All Active Problems (Updated 01/19/25 @ 22:00 by Ed Aquino) Cellulitis of left foot (Acute) Methadone maintenance therapy patient (Chronic) Postoperative pain of extremity (Acute) Osteomyelitis of left foot (Acute) Receiving intravenous antibiotic treatment as outpatient (Acute) Low vitamin D level (Acute) Nonhealing ulcer of left lower extremity (Acute) Osteomyelitis (Acute) Cellulitis (Acute) Plantar verruca (Acute) Pain in right foot (Acute) Ulcer of left foot with fat layer exposed (Acute) Tachycardia (Acute) Peripheral nerve disease (Acute) Idiopathic peripheral neuropathy (Chronic) Hypertriglyceridemia (Acute) Hypertension (Chronic) Cellulitis of foot, right (Acute) toe of right foot Foot ulcer, left (Acute) Anemia (Chronic) Vitamin D deficiency (Acute) Tobacco user (Acute) Hyperlipidemia (Acute) Corns and callosities (Acute) Neuropathy (Acute) Neuropathic ulcer (Acute) Medical History Superior labrum lgnvwrby-wv-[id number] (SLAP) tear of left shoulder Surgical History S/P colonoscopy 04/13/2019 Family History Mother Alcohol use disorder Maternal Grandmother Stroke Social History Smoking/Tobacco Use Status: Current-Occasional Tobacco Type: cigarettes Smoking packs per day: 0.75 Smoking cigarettes per day: 15.0 Smoking risk assessment performed?: Yes Alcohol Intake: never Drug use: Daily Substance use type: marijuana Details: inhaled, daily, 1 gram daily, last use 01/09/25. Housing: house Do you feel safe at home: Yes Do you feel safe in your relationship?: Yes Meds Allergies and Home Medications Allergies Allergy/AdvReac Type Severity Reaction Status Date / Time No Known Allergies Allergy Verified 01/19/25 16:33 Home Medications ?Medication ?Instructions ?Recorded ?Confirmed ?Type amitriptyline 50 mg tablet 50 mg PO QHS 02/13/22 01/19/25 History aspirin 81 mg tablet,delayed 81 mg PO DAILY 02/13/22 01/19/25 History release pregabalin 150 mg capsule (Lyrica) 150 mg PO TID 05/27/22 01/19/25 History cholecalciferol (vitamin D3) 50 50 mcg PO DAILY 09/21/23 01/19/25 History mcg (2,000 unit) tablet methadone 40 mg soluble tablet 45 mg PO DAILY 09/21/23 01/19/25 History metoprolol succinate 50 mg 50 mg PO DAILY 09/21/23 01/19/25 History tablet,extended release 24 hr salicylic acid 17 % topical gel 1 applic topical DAILY #7 grams 12/15/23 01/19/25 Rx phytonadione (vitamin K1) 5 mg 5 mg PO DAILY 08/04/24 01/19/25 History tablet gentamicin 0.1 % topical cream 1 applic topical QID #30 grams 08/25/24 01/19/25 Rx amoxicillin 875 mg PO BID 01/09/25 01/19/25 History ciprofloxacin HCl 500 mg tablet 750 mg (1.5 x 500 mg) PO BID 2 01/11/25 01/19/25 Rx weeks #42 tabs Exam Narrative Exam Narrative: General: Patient appears appropriate age, alert and oriented x 3 and in no acute distress. HEENT: Normocephalic, eyes with pupils equal and reactive light symmetric, extraocular movement intact and sclera anicteric. Oropharynx with moist mucosa and fair dentition. Neck: Supple without JVD. Back: Normal posture without CVA tenderness. Lungs: Fair aeration and clear to auscultation percussion with no focalizing rales or rhonchi. No expiratory wheeze. Bronchovesicular breath sounds diffusely. Heart: Regular rate and rhythm with no murmurs gallops appreciated. Abdomen: Normal contour, soft and nontender to palpation with no hepatosplenomegaly. No guarding or rebound. Bowel sounds positive in all quadrants. Genitalia/rectal: Exam deferred. Extremities: Without clubbing, cyanosis or grossly pitting edema. Left foot has bandage with dry dressing and Betadine painted first toe with partially exposed ulcer beneath the first of on the sole of the foot. There is minimal surrounding swelling and no fluctuance. Capillary refill is fair on the left and right with palpable dorsalis pedis pulse on the right. Bandage did not allow palpation of the left dorsalis pedis pulse. Skin: Normal color, warm and dry with ulcer as noted on left foot. Neuro: Cranial nerves II through XII gross intact, no focalized motor deficits and no tremor. Psych: Normal affect and mood. No abnormal thought processes. Remote and recent memory intact. Results Imaging Imaging Studies: EXAM: XR FOOT LT COMPLETE Date of exam: 01/19/2025 CLINICAL HISTORY: ?osteomyelitis. TECHNIQUE: 2D digital imaging was performed of the left foot. Three images were obtained. AP, oblique and lateral views were obtained. COMPARISON: CR XR FOOT LT COMPLETE from 06/11/2022 CR XR FOOT LT COMPLETE from 04/14/2024 CR XR FOOT LT COMPLETE from 12/28/2024 XA XR FOOT LT LIMITED from 01/09/2025 CR XR FOOT LT COMPLETE from 01/09/2025 FINDINGS: The patient's foot is wrapped in a dressing. BONES: No acute fracture is present. No bony destructive lesion is seen. There is an enthesophyte at the posterior calcaneus. There is a small plantar calcaneal spur. JOINTS: No dislocation present. SOFT TISSUE: Normal. The thin linear foreign body in the soft tissues of the heel is unchanged and has been present on all prior examinations. IMPRESSION: There is no radiographic evidence of osteomyelitis seen at this time. Labs 01/20/25 06:23 01/20/25 06:23 Labs: Laboratory Results - last 24 hr 01/19/25 16:57 WBC 9.90 RBC 5.26 Hgb 15.5 Hct 46.0 MCV 88 MCH 29.5 MCHC 33.7 RDW 12.6 Plt Count 317 MPV 9.5 Immature Gran % 0.3 Neutrophils % 58.7 Lymphocytes % 32.1 Monocytes % 7.0 Eosinophils % 1.4 Basophils % 0.5 Nucleated RBC % 0.0 Absolute Neutrophils 5.81 Absolute Lymphocytes 3.18 Absolute Monocytes 0.69 Absolute Eosinophils 0.14 Absolute Basophils 0.05 ESR 38 H VBG pH 7.35 VBG pCO2 54 H VBG pO2 37 VBG HCO3 30 H VBG Total CO2 26 VBG O2 Saturation 77 VBG Base Excess 4 H Sodium 139 Potassium 3.7 Chloride 100 Carbon Dioxide 30.0 Anion Gap 9.0 BUN 11 Creatinine 0.8 Est GFR (CKD-EPI 2020) 106.48 Glucose 128 H Calcium 9.2 Magnesium 2.1 Total Bilirubin 0.3 AST 17 ALT 24 Alkaline Phosphatase 85 C-Reactive Protein 4.86 H Total Protein 8.1 Albumin 3.6 Last Vital Signs Temp 36.7 C 01/19/25 16:35 Pulse 89 01/19/25 16:35 Resp 15 01/19/25 16:35 BP 135/88 01/19/25 16:35 Pulse Ox 98 01/19/25 16:35 Time Spent Time spent with Patient: 55-74 minutes Time was spent: preparing to see the patient(eg.review tests), obtaining and/or reviewing separately otained hiistory, ordering medications,tests, procedures, indepentently interpreting results and care coordination
[2025-01-19] MEDS: PIPERACILLIN/TAZO 4.5 GM in Normal Saline 100 ML IVPB (19:29)
[2025-01-19 20:34] LABS: COVID-19 PCR Negative (Negative); RSV PCR Negative (Negative)
--- NOTE | 2025-01-19 20:58 | W.PC.ACHO ---
Registration Status: REG ER Primary Language: Preferred Language: ED Information & Data Chief Complaint Cellulitis 01/19/25 16:58 Triage Note pt sent by podiatry for 01/19/25 16:31 failed PO abx treatment for left cellulitis that has been ongoing for 2 years. Pt to be admitted for IV abx and surgical intervention on Thursday. Medical / Surgical History (Last Reviewed 01/19/25 @ 19:28 by Ed Aquino) Superior labrum [id number]-[id number] (SLAP) tear of left shoulder (Last Reviewed 01/19/25 @ 19:28 by Ed Aquino) S/P colonoscopy Most Recent Vital Signs Temperature 36.7 C 01/19/25 16:35 Temperature Source Tympanic 01/19/25 16:31 Pulse 89 01/19/25 16:35 Respiratory Rate 15 01/19/25 16:35 Blood Pressure 135/88 01/19/25 16:35 Blood Pressure Position Sitting 01/19/25 16:31 Pulse Oximetry 98 01/19/25 16:35 Oxygen Delivery Method Room Air 01/19/25 16:31 Oxygen Flow Rate 0 01/19/25 16:31 Pain Level 0 01/19/25 16:35 Allergies No Known Allergies Allergy (Verified 01/19/25 16:33) Precautions Isolation Standard precaution 01/19/25 16:35 IV IV Catheter Type [Right Saline Lock Antecubital] IV Catheter Type [Left Saline Lock Antecubital] IV Catheter Gauge [Right 18 Antecubital] IV Catheter Gauge [Left 20 Antecubital] Diagnostics 01/19/25 01/19/25 Range/Units 19:54 16:57 WBC 9.90 (4.4-10.8) 10^3/uL RBC 5.26 (4.36-5.78) 10^6/uL Hgb 15.5 (13.5-17.5) g/dL Hct 46.0 (40.0-50.0) % MCV 88 (80-95) fL MCH 29.5 (27.0-33.0) pg MCHC 33.7 (32.0-36.0) % RDW 12.6 (11.8-14.1) % Plt Count 317 (130-400) 10^3/uL MPV 9.5 (8.0-11.0) fL Immature Gran % 0.3 % Neutrophils % 58.7 % Lymphocytes % 32.1 % Monocytes % 7.0 % Eosinophils % 1.4 % Basophils % 0.5 % Nucleated RBC % 0.0 (0.0-0.3) % Absolute Neutrophils 5.81 (1.2-6.7) 10^3/uL Absolute Lymphocytes 3.18 (1.2-3.4) 10^3/uL Absolute Monocytes 0.69 (0.1-0.8) 10^3/uL Absolute Eosinophils 0.14 (0.0-0.7) 10^3/uL Absolute Basophils 0.05 (0.0-0.2) 10^3/uL ESR 38 H (0-20) mm/hr VBG pH 7.35 (7.31-7.41) VBG pCO2 54 H (41-51) mmHg VBG pO2 37 mmHg VBG HCO3 30 H (23-28) mmol/L VBG Total CO2 26 (24-29) mmol/L VBG O2 Saturation 77 % VBG Base Excess 4 H (-2-3) mmol/L Sodium 139 (136-145) mmol/L Potassium 3.7 (3.5-5.1) mmol/L Chloride 100 (98-107) mmol/L Carbon Dioxide 30.0 (21.0-32.0) mmol/L Anion Gap 9.0 (3-11) mmol/L BUN 11 (7-18) mg/dL Creatinine 0.8 (0.70-1.30) mg/dL Est GFR (CKD-EPI 2020) 106.48 (mL/min/1.73m2) Glucose 128 H (74-106) mg/dL Calcium 9.2 (8.5-10.1) mg/dL Magnesium 2.1 (1.8-2.4) mg/dL Total Bilirubin 0.3 (0.2-1.0) mg/dL AST 17 (15-37) U/L ALT 24 (16-63) U/L Alkaline Phosphatase 85 (46-116) U/L C-Reactive Protein 4.86 H (<or=0.5) mg/dL Total Protein 8.1 (6.4-8.2) g/dL Albumin 3.6 (3.4-5.0) g/dL COVID-19 Source Nasopharynx SARS-CoV-2 (PCR) Negative (Negative) Influenza Type A (PCR) Negative (Negative) Influenza Type B (PCR) Negative (Negative) RSV (PCR) Negative (Negative) 01/19/25 16:57 Blood Culture - Pending Blood 01/19/25 16:57 Blood Culture - Pending Blood Intake and Output - 24 Hour Total 01/19/25 16:11 thru 01/19/25 20:17 Intake Total 500 Balance 500 Weight 88.451 kg Intake: IV 500 Falls Risk Assessment History of Falls No History 01/19/25 16:35 Contributing Factors Impairments 01/19/25 16:35 Ambulatory Aids Uses ambulatory device 01/19/25 16:35 Tubes/Lines None 01/19/25 16:35 Gait Evaluation W/any additional score 01/19/25 16:35 Cognition No cognitive impairment 01/19/25 16:35 Fall Total Score 38 01/19/25 16:35 Level of Risk Moderate Risk 01/19/25 16:35 Problems (Last Reviewed 01/19/25 @ 19:28 by Ed Aquino) Cellulitis of left foot (Acute) v v v v v v v v v Sending and/or Receiving Nurses: Please use comment section below to note any information pertinent to the patient hand-off not included above. Information / Comments: Pt admit to med/surg through the ED, to rm 215, for massive gapping wound to lft foot. Pt Hx of idiopathic neuropathy. Chronic wound >1yr. Hermes Sx w/ podiatry on . Pt is on methadone, squirley in ED and potential for AMA. Report received from:called at 2044, spoke w/ ALISON Mckeon
[2025-01-19 21:09] VITALS: BP 142/102; PULSE 75; RESP 15; TEMP 36.6; O2SAT 99
[2025-01-19 21:13] VITALS: BP 142/102; PULSE 75; RESP 15; TEMP 36.6; O2SAT 99
[2025-01-19] MEDS: Amitriptyline 10 MG TAB 50 MG PO (22:37)
[2025-01-19] MEDS: Normal Saline Flush 10 ML SYR IVP (22:38)
[2025-01-19] MEDS: Pregabalin 150 MG CAP PO (22:38)
[2025-01-20 02:00] VITALS: BP 127/75; PULSE 60; RESP 15; TEMP 36.9; O2SAT 95
[2025-01-20] MEDS: PIPERACILLIN/TAZO 3.375 GM in Normal Saline 50 ML IVPB ×4 (02:46→20:24)
[2025-01-20] MEDS: VANCOMYCIN/WATER (PEG) 1 GM/200 ML BAG IVPB ×2 (06:26→18:27)
[2025-01-20 06:47] LABS: HCT 40.6 % (40.0-50.0); HGB 13.8 g/dL (13.5-17.5); MCH 29.5 pg (27.0-33.0); MCHC 34.0 % (32.0-36.0); MCV 87 fL (80-95); MPV 9.5 fL (8.0-11.0); Platelet Count 222 10^3/uL (130-400); RBC 4.68 10^6/uL (4.36-5.78); RDW 12.6 % (11.8-14.1); RDW-SD 39.8 fL; WBC 8.58 10^3/uL (4.4-10.8)
[2025-01-20 07:10] LABS: ALT 20 U/L (16-63); AST 18 U/L (15-37); Albumin 3.0 g/dL (3.4-5.0); Alkaline Phosphatase 72 U/L (46-116); Anion Gap 8.5 mmol/L (3-11); BUN 10 mg/dL (7-18); Bilirubin, Total 0.5 mg/dL (0.2-1.0); CO2 29.5 mmol/L (21.0-32.0); Calcium 8.7 mg/dL (8.5-10.1); Chloride 102 mmol/L (98-107); Estimated GFR 110.87 (mL/min/1.73m2); Glucose 104 mg/dL (74-106); Potassium 3.6 mmol/L (3.5-5.1); Sodium 140 mmol/L (136-145); Total Protein 6.9 g/dL (6.4-8.2)
[2025-01-20 07:52] VITALS: BP 127/82; PULSE 63; RESP 17; TEMP 36.3; O2SAT 96
--- NOTE | 2025-01-20 08:41 | INITIAL_ITS ---
Date of service: 01/20/25 Time of Service: 08:41 Care Management Initial Assmt Initial Assessment Reason for Hospitalization: Cellulitis of left foot Functional Status/Living Situation Patient Presentation: Jose is admitted for cellulites of the left foot and is being treated with IV ABX. He was available to meet with CM this morning and is currently having what appears to be a wound consult. Per report, podiatry will take him to the OR for further debridment in January 24. CM will meet with patient at a later time. Town of Residence: [place] Resides with: Spouse ( Carol) Significant Other/Family: [facility] Instrumental Activities of Daily Living (ADLs): Independent Medications Medication Management: No Issues/Barriers identified Advance Directives Advance Directives: Do you have an Advance Directive: N , 11:27 AD On File at [facility]: N 06/11/22, 11:27 Date Asked 01/19/25 01/19/25, 16:14 AD Date Reviewed COLST On File at [facility] COLST Date Scanned Code Status Resuscitation Status Full Code Insurance Coverage/Financial Issues Insurance: Medicaid of [place] - [id number] Care Team Visit Care Team Role Provider Type Fidelia Yang APRN MD [facility] STAFF PHYSICIAN Tino Fong Primary Care Provider NON-[facility] STAFF PHYSICIAN Jessie Glaser, DPM Other Providers DPM [facility] STAFF PHYSICIAN Baltazar Dunham, DPM Other Providers DPM [facility] STAFF PHYSICIAN Ilya Gutierrez MD Emergency Provider [facility] STAFF PHYSICIAN Ed Aquino Admit Provider NON-[facility] STAFF PHYSICIAN Attending Provider Discharge Potential Discharge Needs: Consult Consult Services Needed: Other (Podiatry, wound), PCP F/U Appt and Surgical F/U Appt Anticipated Barriers to Discharge: None Identified Patient/Family Education Needs: Review discharge instructions, discuss Ask Me Three Transportation: Private vehicle Plan: Cultures are pending, wound consult is pending, recommendations to follow. Plan for podiatry will take him to the OR for further debridement. on ThursdayJanuary 24. CM will follow. Social Determinants of Health Screening Social Determinants of health last assessed in clinic: 01/21/25 Will the Patient Participate in the Screening?: Yes Do you worry about having a steady place to live?: no Problems where you live: water leaks and inadequate lighting In the past 12 months, have you had to go without electric, gas, oil or water in your home?: no 1. Within the past 12 months, we worried whether our food would run out before we got money to buy more.: Never true 2. Within the past 12 months, the food we bought just didn't last and we didn't have money to get more.: Never true Has lack of transportation kept you from medical appointments or from doing things needed for daily living?: yes Has anyone in your life made you feel unsafe or unsupported?: no How hard is it for you to pay for the very basics like food, housing, medical care, and heating? Would you say it is:: Very hard Do you want help finding or keeping work or a job?: I do not need or want help If for any reason you need help with day-to-day activities such as bathing, preparing meals, shopping, managing finances, etc., do you get the help you need?: I get all the help I need How often do you feel lonely or isolated from those around you?: Often Do you speak a language other than Hungarian at home?: No Does the patient want assistance with any of the above?: Yes Health Related Social Needs Health related social needs: inadequate housing (Z59.1), transportation insecurity (Z59.82), problems related to housing/economic circumstances (Z59.89) and feeling lonely/isolated (Z60.8) Health related social needs details: Difficulty working w/ injury att, making it hard to meet economical needs PFSH All Active Problems (Updated 01/19/25 @ 22:00 by Ed Aquino) Cellulitis of left foot (Acute) Methadone maintenance therapy patient (Chronic) Postoperative pain of extremity (Acute) Osteomyelitis of left foot (Acute) Receiving intravenous antibiotic treatment as outpatient (Acute) Low vitamin D level (Acute) Nonhealing ulcer of left lower extremity (Acute) Osteomyelitis (Acute) Cellulitis (Acute) Plantar verruca (Acute) Pain in right foot (Acute) Ulcer of left foot with fat layer exposed (Acute) Tachycardia (Acute) Peripheral nerve disease (Acute) Idiopathic peripheral neuropathy (Chronic) Hypertriglyceridemia (Acute) Hypertension (Chronic) Cellulitis of foot, right (Acute) toe of right foot Foot ulcer, left (Acute) Anemia (Chronic) Vitamin D deficiency (Acute) Tobacco user (Acute) Hyperlipidemia (Acute) Corns and callosities (Acute) Neuropathy (Acute) Neuropathic ulcer (Acute) Medical History Superior labrum jqazuakw-rr-nkksesjwl (SLAP) tear of left shoulder Surgical History S/P colonoscopy 04/13/2019 Family History Mother Alcohol use disorder Maternal Grandmother Stroke Social History Smoking/Tobacco Use Status: Current-Occasional Tobacco Type: cigarettes Smoking packs per day: 0.75 Smoking cigarettes per day: 15.0 Smoking risk assessment performed?: Yes Alcohol Intake: never Drug use: Daily Substance use type: marijuana Details: inhaled, daily, 1 gram daily, last use 01/09/25. Housing: house Do you feel safe at home: Yes Do you feel safe in your relationship?: Yes
[2025-01-20] MEDS: Methadone Liquid 10 MG/ML 45 MG PO (08:43)
[2025-01-20] MEDS: Aspirin E.C. 81 MG TABEC PO (08:44)
[2025-01-20] MEDS: Normal Saline Flush 10 ML SYR IVP ×5 (08:44→20:25)
[2025-01-20] MEDS: Enoxaparin 40 MG/0.4 ML SYR SC (08:44)
[2025-01-20] MEDS: Pregabalin 150 MG CAP PO ×3 (08:44→20:24)
[2025-01-20] MEDS: Metoprolol CR 50 MG TABCR PO (08:44)
[2025-01-20] MEDS: Cholecalciferol (Vitamin D3) 1,000 UNIT TAB 2000 UNITS PO (08:44)
[2025-01-20 11:05] VITALS: BP 118/82; PULSE 60; RESP 17; TEMP 37.1; O2SAT 98
--- NOTE | 2025-01-20 12:36 | PGE_ITS ---
Date of Service Date of service: 01/20/25 Time of Service: 12:37 Assessment and Plan Assessment and plan (1) Cellulitis of left foot: Status: Acute Assessment and plan: Chronic idiopathic neuropathy and numbness in his legs. Unhealed wound to plantar side of left great toe that has been treated for ~ 2 years. Podiatry requests he is hospitalized for failing out pt treatment. Continue IV Zosyn and vancomycin. Plan for podiatry will take him to the OR for further debridement. on ThursdayJanuary 24 Patient is a current smoker. Left great toe, red, swollen. Denies pain (2) Methadone maintenance therapy patient: Status: Chronic Assessment and plan: Continue maintenance therapy (3) Idiopathic peripheral neuropathy: Status: Chronic Assessment and plan: Sees neurology. Continue pregabalin. Subjective Subjective Patient reports: no new complaints Interval history since last seen: Patient states he does not have pain. He states he didn't sleep well last night, and thinks it is because his toe was I & D'd, although he said he has no pain. Exam Const General: no acute distress Orientation: alert HENIN Head: normal to inspection Ears: external ears normal General nose exam: external nose normal Mouth: moist mucous membranes Eyes General: appearance normal, both eyes and all related structures Neck Neck: normal visual inspection Resp Effort & Inspection: normal respiratory effort and able to speak in complete sentences Cardio Rate: regular rate Skin Other: Left great toe red and swollen. Neuro General: patient alert and patient oriented x3 Extrem General: no cyanosis and no edema Psych Mental Status: mental status grossly normal Objective Last Vital Signs Temp 37.1 C 01/20/25 11:05 Pulse 60 01/20/25 11:05 Resp 17 01/20/25 11:05 BP 118/82 01/20/25 11:05 Pulse Ox 98 01/20/25 11:05 Laboratory Results - last 24 hr 01/19/25 01/19/25 01/20/25 16:57 19:54 06:23 WBC 9.90 8.58 RBC 5.26 4.68 Hgb 15.5 13.8 Hct 46.0 40.6 MCV 88 87 MCH 29.5 29.5 MCHC 33.7 34.0 RDW 12.6 12.6 Plt Count 317 222 MPV 9.5 9.5 Immature Gran % 0.3 Neutrophils % 58.7 Lymphocytes % 32.1 Monocytes % 7.0 Eosinophils % 1.4 Basophils % 0.5 Nucleated RBC % 0.0 Absolute Neutrophils 5.81 Absolute Lymphocytes 3.18 Absolute Monocytes 0.69 Absolute Eosinophils 0.14 Absolute Basophils 0.05 ESR 38 H VBG pH 7.35 VBG pCO2 54 H VBG pO2 37 VBG HCO3 30 H VBG Total CO2 26 VBG O2 Saturation 77 VBG Base Excess 4 H Sodium 139 140 Potassium 3.7 3.6 Chloride 100 102 Carbon Dioxide 30.0 29.5 Anion Gap 9.0 8.5 BUN 11 10 Creatinine 0.8 0.7 Est GFR (CKD-EPI 2020) 106.48 110.87 Glucose 128 H 104 Calcium 9.2 8.7 Magnesium 2.1 Total Bilirubin 0.3 0.5 AST 17 18 ALT 24 20 Alkaline Phosphatase 85 72 C-Reactive Protein 4.86 H Total Protein 8.1 6.9 Albumin 3.6 3.0 L COVID-19 Source Nasopharynx SARS-CoV-2 (PCR) Negative Influenza Type A (PCR) Negative Influenza Type B (PCR) Negative RSV (PCR) Negative Time Spent with Patient Time Spent with Patient: 25-34 minutes Time was spent: preparing to see the patient(eg.review tests), ordering medications,tests, procedures, referring, communicating with other health intensive care ambulance paramedic, indepentently interpreting results, counseling the patient and care coordination
--- NOTE | 2025-01-20 13:24 | PHACLINREV_ITS ---
Pharmacy Admission Review Admission Clinical Review Admission Pharmacy Review: Cellulitis of left foot (Acute) No Known Allergies Allergy (Verified 01/19/25 16:33) Resuscitation Status Full Code Height 5 ft 9 in Weight 89.953 kg Pharmacy Admission Review Renal Dosing Renal Dosing: BUN 10 mg/dL (7-18) 01/20/25 06:23 Creatinine 0.7 mg/dL (0.70-1.30) 01/20/25 06:23 Medications needing adjustments: Reviewed (CrCl 136.89 mL/min) List of meds needing interventions: Current medications are okay Anticoagulation Anticoagulation: Hgb 13.8 g/dL (13.5-17.5) 01/20/25 06:23 Hct 40.6 % (40.0-50.0) 01/20/25 06:23 Plt Count 222 10^3/uL (130-400) 01/20/25 06:23 Creatinine 0.7 mg/dL (0.70-1.30) 01/20/25 06:23 DVT Prophylaxis: Reviewed Medications: Enoxaparin (40mg daily) Opiate Usage Evaluate Pain Scale/Pains Meds: Intervened (methadone 45mg daily - confirmed with [facility] in [place]) Scheduled Bowel Reg ordered if on Opiates?: No (PRN Miralax/docusate) Relevant Labs Relevant Labs: ESR 38 mm/hr (0-20) H 01/19/25 16:57 Sodium 140 mmol/L (136-145) 01/20/25 06:23 Potassium 3.6 mmol/L (3.5-5.1) 01/20/25 06:23 Chloride 102 mmol/L (98-107) 01/20/25 06:23 Magnesium 2.1 mg/dL (1.8-2.4) 01/19/25 16:57 C-Reactive Protein 4.86 mg/dL (<or=0.5) H 01/19/25 16:57 Electrolytes, C-Reactive P, ESR: Reviewed Cardiac Review BP, HR, EF%: Reviewed (BP and HR WNL) List meds needing interventions: Has order for metoprolol XL 50mg daily QTc Review QTc: Reviewed (450 from 01/15/24 - most recent EKG on file) IV to PO Switch IV Medications: Reviewed (Zosyn and vancomycin) Home Meds Home Med List reviewed: Intervened Relevent Home Meds Not ordered & why?: amoxicillin and ciprofloxacin - on IV Zosyn and vancomycin Changed 2 orders to patients own - salicylic acid gel and gentamicin cream. Asked nurse to see if these could be brought in for the patient. Waiting to hear back. Order pending for vitamin K from patients home med list. Asked nurse to verify with patient that they do take this at home. Waiting to hear back. Current Meds Current Medication Order Review: Reviewed Pharmacy Antibiotic Review Relevant Labs: Relevant Labs 01/19/25 16:57 C-Reactive Protein 4.86 H WBC 8.58 10^3/uL (4.4-10.8) 01/20/25 06:23 Temperature 37.1 C Temperature 36.3 C Temperature 36.9 C Pharmacy Antibiotic Activity: C/S review and Reviewed, no change Comments: Patient is on vancomycin and Zosyn, day 1, for left foot cellulitis. Current vancomycin dose is 1000mg q12h with predicted trough of 10.8 mg/L. Level ordered for tomorrow morning at 0500 (prior to 4th dose). Will adjust dose as needed based on results. Blood cultures pending.
[2025-01-20 15:09] VITALS: BP 140/93; PULSE 64; RESP 18; TEMP 36.1; O2SAT 97
[2025-01-20] MEDS: Amitriptyline 10 MG TAB 50 MG PO (20:24)
[2025-01-21] MEDS: PIPERACILLIN/TAZO 3.375 GM in Normal Saline 50 ML IVPB ×2 (03:48→08:50)
[2025-01-21 05:29] LABS: HCT 39.9 % (40.0-50.0); HGB 13.3 g/dL (13.5-17.5); MCH 28.9 pg (27.0-33.0); MCHC 33.3 % (32.0-36.0); MCV 87 fL (80-95); MPV 9.3 fL (8.0-11.0); Platelet Count 217 10^3/uL (130-400); RBC 4.61 10^6/uL (4.36-5.78); RDW 12.4 % (11.8-14.1); RDW-SD 39.4 fL; WBC 8.12 10^3/uL (4.4-10.8)
[2025-01-21 05:41] LABS: Magnesium 2.1 mg/dL (1.8-2.4)
[2025-01-21 05:46] LABS: Vancomycin, Random 11.0 ug/mL
[2025-01-21 05:47] LABS: ALT 17 U/L (16-63); AST 15 U/L (15-37); Albumin 2.9 g/dL (3.4-5.0); Alkaline Phosphatase 69 U/L (46-116); Anion Gap 8.3 mmol/L (3-11); BUN 12 mg/dL (7-18); Bilirubin, Total 0.5 mg/dL (0.2-1.0); C-Reactive Protein 3.09 mg/dL (<or=0.5); CO2 29.7 mmol/L (21.0-32.0); Calcium 8.6 mg/dL (8.5-10.1); Chloride 103 mmol/L (98-107); Estimated GFR 106.48 (mL/min/1.73m2); Glucose 92 mg/dL (74-106); Potassium 3.5 mmol/L (3.5-5.1); Sodium 141 mmol/L (136-145); Total Protein 6.9 g/dL (6.4-8.2)
[2025-01-21] MEDS: VANCOMYCIN/WATER (PEG) 1 GM/200 ML BAG IVPB (06:11)
[2025-01-21] MEDS: Normal Saline Flush 10 ML SYR IVP ×2 (06:18→08:50)
[2025-01-21 06:39] VITALS: BP 125/71; PULSE 75; RESP 15; TEMP 36.6; O2SAT 97
[2025-01-21 08:41] VITALS: BP 141/96; PULSE 71; RESP 16; TEMP 37; O2SAT 98
[2025-01-21] MEDS: Pregabalin 150 MG CAP PO (08:49)
[2025-01-21] MEDS: Metoprolol CR 50 MG TABCR PO (08:49)
[2025-01-21] MEDS: Aspirin E.C. 81 MG TABEC PO (08:49)
[2025-01-21] MEDS: Cholecalciferol (Vitamin D3) 1,000 UNIT TAB 2000 UNITS PO (08:50)
[2025-01-21] MEDS: Methadone Liquid 10 MG/ML 45 MG PO (08:51)
[2025-01-21] MEDS: Enoxaparin 40 MG/0.4 ML SYR SC (08:52)
--- NOTE | 2025-01-21 10:44 | W.PM.PROGNOT ---
Date of Service Date of service: 01/21/25 Time of Service: 10:45 Assessment and Plan Assessment and plan (1) Cellulitis of left foot: Status: Acute Assessment and plan: Chronic idiopathic neuropathy and numbness in his legs. Unhealed wound to plantar side of left great toe that has been treated for ~ 2 years. Podiatry requests he is hospitalized for failing out pt treatment. ongoing IV Zosyn and d/c vancomycin. Today on fluconazole d/t nataliia in wound Plan for podiatry will take him to the OR for further debridement. on ThursdayJanuary 24. H Patient is a current smoker. Left great toe, red, swollen. Denies pain (2) Methadone maintenance therapy patient: Status: Chronic Assessment and plan: Continue maintenance therapy (3) Idiopathic peripheral neuropathy: Status: Chronic Assessment and plan: Sees neurology. Continue pregabalin. Objective Last Vital Signs Temp 37.0 C 01/21/25 08:41 Pulse 71 01/21/25 08:41 Resp 16 01/21/25 08:41 BP 141/96 H 01/21/25 08:41 Pulse Ox 98 01/21/25 08:41 Laboratory Results - last 24 hr 01/21/25 05:10 WBC 8.12 RBC 4.61 Hgb 13.3 L Hct 39.9 L MCV 87 MCH 28.9 MCHC 33.3 RDW 12.4 Plt Count 217 MPV 9.3 Sodium 141 Potassium 3.5 Chloride 103 Carbon Dioxide 29.7 Anion Gap 8.3 BUN 12 Creatinine 0.8 Est GFR (CKD-EPI 2020) 106.48 Glucose 92 Calcium 8.6 Magnesium 2.1 Total Bilirubin 0.5 AST 15 ALT 17 Alkaline Phosphatase 69 C-Reactive Protein 3.09 H Total Protein 6.9 Albumin 2.9 L Random Vancomycin 11.0
--- NOTE | 2025-01-21 16:25 | NUR.NOTE ---
Nursing Note: Pt left AMA, this nurse educated him on the risks of increased infection and the policies regarding inpatient v outpatient surgical procedures.
--- NOTE | 2025-01-21 18:01 | W.PM.DS.N ---
Date of service: 01/21/25 Time of Service: 18:01 DS: Diagnosis Discharge Diagnosis (1) Cellulitis of left foot: Status: Acute (2) Methadone maintenance therapy patient: Status: Chronic (3) Idiopathic peripheral neuropathy: Status: Chronic Discharge Plan Disposition Patient Disposition: Against Medical Advice Condition: Serious Discharge Details Reason For Visit: Cellulitis Left Foot, Neuropathy Admit Date/Time: 01/19/25 19:42 Admit Provider: Ed Aquino Attending Provider: Ed Aquino Primary Care Provider: Tino Fong Hospital Course Hospital Course: 50-year-old male with a PMHX opioid dependance on methadone , osteomyelytis , chronic wound in his left foot due to neuropathy with recently surgical procedure with podiatry and on Augmentin and ciprofloxacin for cellulitis and wound infection, comes in after cleaning of the podiatry office on 01/19 for evaluation of purulent material for IV antibiotics. The patient was admitted to the medical surgical floor on zosyn and vancomycin with planned OR with podiatry on Thursday or Thursday for washout and removal of tissue versus partial first ray amputation possible fillet of toe flap. As per podiatry notes, the patient was advised to consider both surgical options carefully with further discussion in house. The patient clincally improved and decided to leave AMA. No growth at 24 hours on microbiology report last updated at 19:03 on 01/20 from blood Cultures collected on 01/19/25. Open wound with bone exposed on the left foot just proximal to the big toe ws covered with DCI dressing. Wound culture grew nataliia albican and pseudomonas aeruginosa due to increased risk of QT prolongation with methadone use for levofloxacin and ciprofloxacin - will attempt to order Delafloxacin with no reported QT prolongation adverse effect. With lesser risk factors for QT prolongation ( sex, age> 65, QT syndrome, baseline QT > 450mm sec), with fluconazole, will order fluconazole 200 mg orally for the first day then 100 mg orally on subsequent days. Follow-up with your PCP and podiatry. Discussed with Dr. Miles Goshen Meds and New Rx's Prescriptions: New delafloxacin 450 mg tablet 450 mg PO Q12H 5 Days Qty: 10 0RF fluconazole 100 mg tablet 100 mg PO DAILY Qty: 6 0RF Rx Instructions: Take 200 mg orally on the first day then 100 mg on subsequent days- reach out to your PCP or podiatry for re-evaluation No Action amitriptyline 50 mg tablet 50 mg PO QHS aspirin 81 mg tablet,delayed release (DR/EC) 81 mg PO DAILY phytonadione (vitamin K1) 5 mg tablet 5 mg PO DAILY pregabalin [Lyrica] 150 mg capsule 150 mg PO TID methadone 40 mg tablet,soluble 45 mg PO DAILY metoprolol succinate 50 mg tablet extended release 24 hr 50 mg PO DAILY cholecalciferol (vitamin D3) 50 mcg (2,000 unit) tablet 50 mcg PO DAILY salicylic acid 17 % gel 1 applic topical DAILY Qty: 7 0RF Rx Instructions: apply to each wart gentamicin 0.1 % cream 1 applic topical QID Qty: 30 0RF ciprofloxacin HCl 500 mg tablet 750 mg PO BID 14 Days Qty: 42 0RF amoxicillin 875 mg PO BID Rx Instructions: 875 mg orally; twice daily Discharge Data Discharge Date/Time-TO BE ENTERED AT DEPARTURE: 01/21/25 14:10 DS: Summary Time Spent with Patient providing and/or coordinating discharge services: Greater than 30 minutes Status at Discharge Functional status at discharge: uses cane/walker (scooter ) Overall status at discharge: patient is not back to baseline Mental Status: mental status grossly normal Speech and Movement: speech and movement normal Mood: anxious mood, labile mood, angry and irritable mood Affect: labile affect, anxious affect, hostile and irritable affect Quality:SDOH Health Related Social Needs: Health related social needs inadequate housing transpo insecurity house/econ circumstance lonely/isolated Health related social needs details Difficulty working w/ injury att, making it hard to meet economical needs Health related social needs details: Difficulty working w/ injury att, making it hard to meet economical needs Exam Psych Mental Status: mental status grossly normal Speech and Movement: speech and movement normal Mood: anxious mood, labile mood, angry and irritable mood Affect: labile affect, anxious affect, hostile and irritable affect DS: Data Vitals/I&O Vitals and I&O: Vital Signs Temperature 37.0 C 01/21/25 08:41 Temperature Source Temporal Artery Scan 01/21/25 08:41 Pulse 71 01/21/25 08:41 Pulse Rhythm Regular 01/19/25 21:13 Respiratory Rate 16 01/21/25 08:41 Respiratory Effort Normal, Non-Labored 01/19/25 21:13 Respiratory Depth Normal 01/19/25 21:13 Respiratory Pattern Normal 01/19/25 21:13 Blood Pressure 141/96 H 01/21/25 08:41 Blood Pressure Mean 111 01/21/25 08:41 Blood Pressure Position Sitting 01/19/25 16:31 Pulse Oximetry 98 01/21/25 08:41 Oxygen Delivery Method Room Air 01/21/25 08:41 Oxygen Flow Rate 0 01/21/25 08:41 Pain Level 5 01/21/25 06:39 Comment Pt asleep will [employer] back 01/20/25 04:43 Intake & Output 01/20/25 01/21/25 01/21/25 23:59 11:59 23:59 Intake Total 520 / 890 560 / 1160 600 / 1160 Balance 520 / 890 560 / 1160 600 / 1160 Intake: IV 300 / 610 320 / 320 Oral 220 / 280 240 / 840 600 / 840 Other: Urine Color Yellow Yellow Urine Appearance Clear Clear Urine Odor Normal Normal Comment voiding ind pt reports voiding Data Completed and Pending Labs on day of discharge: Labs from last 24 hours 01/21/25 05:10 WBC 8.12 RBC 4.61 Hgb 13.3 L Hct 39.9 L MCV 87 MCH 28.9 MCHC 33.3 RDW 12.4 Plt Count 217 MPV 9.3 Sodium 141 Potassium 3.5 Chloride 103 Carbon Dioxide 29.7 Anion Gap 8.3 BUN 12 Creatinine 0.8 Est GFR (CKD-EPI 2020) 106.48 Glucose 92 Calcium 8.6 Magnesium 2.1 Total Bilirubin 0.5 AST 15 ALT 17 Alkaline Phosphatase 69 C-Reactive Protein 3.09 H Total Protein 6.9 Albumin 2.9 L Random Vancomycin 11.0 Preliminary micro results at discharge 01/19/25 16:57 Blood Blood Culture - Preliminary NO GROWTH 24 HOURS 01/19/25 16:57 Blood Blood Culture - Preliminary NO GROWTH 24 HOURS PFSH All Active Problems (Updated 01/19/25 @ 22:00 by Ed Aquino) Cellulitis of left foot (Acute) Methadone maintenance therapy patient (Chronic) Postoperative pain of extremity (Acute) Osteomyelitis of left foot (Acute) Receiving intravenous antibiotic treatment as outpatient (Acute) Low vitamin D level (Acute) Nonhealing ulcer of left lower extremity (Acute) Osteomyelitis (Acute) Cellulitis (Acute) Plantar verruca (Acute) Pain in right foot (Acute) Ulcer of left foot with fat layer exposed (Acute) Tachycardia (Acute) Peripheral nerve disease (Acute) Idiopathic peripheral neuropathy (Chronic) Hypertriglyceridemia (Acute) Hypertension (Chronic) Cellulitis of foot, right (Acute) toe of right foot Foot ulcer, left (Acute) Anemia (Chronic) Vitamin D deficiency (Acute) Tobacco user (Acute) Hyperlipidemia (Acute) Corns and callosities (Acute) Neuropathy (Acute) Neuropathic ulcer (Acute) Medical History Superior labrum lyaimuvc-[id number]-gxytluluf (SLAP) tear of left shoulder Surgical History S/P colonoscopy 04/13/2019 Family History Mother Alcohol use disorder Maternal Grandmother Stroke Social History Smoking/Tobacco Use Status: Current-Occasional Tobacco Type: cigarettes Smoking packs per day: 0.75 Smoking cigarettes per day: 15.0 Smoking risk assessment performed?: Yes Alcohol Intake: never Drug use: Daily Substance use type: marijuana Details: inhaled, daily, 1 gram daily, last use 01/09/25. Housing: house Do you feel safe at home: Yes Do you feel safe in your relationship?: Yes Time Spent with Patient Time Spent with Patient: >85 minutes Time was spent: preparing to see the patient(eg.review tests), obtaining and/or reviewing separately otained hiistory, ordering medications,tests, procedures, referring, communicating with other health home care associate, indepentently interpreting results, counseling the patient, care coordination and other
== END 2025-01-21 14:10 | disposition left against medical advice (07) | DRG 603 ==
LOC: ER 18:38 → MS 21:04
PROVIDERS: Nurse Practitioner Family; Admitting Provider Family Medicine; Emergency Provider Emergency Medicine; PCP Family Medicine; Responsible Provider Nurse Practitioner Acute Care; Visit Provider Family Medicine
DX: L03.116 Cellulitis of left lower limb (principal); F11.20 Opioid dependence, uncomplicated; M86.8X7 Other osteomyelitis, ankle and foot; Z59.10 Inadequate housing, unspecified; L97.524 Non-pressure chronic ulcer of other part of left foot with necrosis of bone; F17.210 Nicotine dependence, cigarettes, uncomplicated; E55.9 Vitamin D deficiency, unspecified; E78.1 Pure hyperglyceridemia; I10 Essential (primary) hypertension; D64.9 Anemia, unspecified; F12.90 Cannabis use, unspecified, uncomplicated; B96.5 Pseudomonas (aeruginosa) (mallei) (pseudomallei) as the cause of diseases classified elsewhere; B37.2 Candidiasis of skin and nail; Z79.899 Other long term (current) drug therapy; Z59.82 Transportation insecurity; Z59.9 Problem related to housing and economic circumstances, unspecified
CPT/HCPCS: 00123; 36415; 80053; 82805; 85027; 85652; 87040; 87637; 96365; 96366; 99285; J1650; J3490; 73630; 80202; 83735; 85025; 86140; 99222; 99231; 99239; J2543; J3373

== ENCOUNTER 2025-01-23 15:07 | Observation (INO) | payer MEDICAID, SELFPAY ==
[2025-01-23 15:09] VITALS: BP 148/96; PULSE 108; RESP 18; TEMP 36.4; O2SAT 96
--- NOTE | 2025-01-23 15:45 | RT.EKG_ITS ---
APPROVED REPORT Exam: Resting ECG Reason for Exam: Pre-op Patient Location: E HR:85 bpm ECG Measurements Heart Rate 85 AXIS NC 167 P 39 QRSd 82 QRS 18 QT 361 T 31 QTc 429 Conclusion Sinus rhythm, rate 85 No interval abnormalities No STEMI No significant changes from prior
--- NOTE | 2025-01-23 16:01 | W.ED.GENAD ---
Discharge Plan Disposition Patient Disposition: Admit to [facility] Condition: Stable Discharge Details Clinical Impression: Nonhealing ulcer of left lower extremity, Osteomyelitis of left foot, Cellulitis of left foot Admit Date/Time: 01/23/25 16:35 Admit Provider: Vladimir Davis Attending Provider: Vladimir Daivs Primary Care Provider: Tino Fong ED Provider: Ivy Romero Discharge Data Discharge Date/Time-TO BE ENTERED AT DEPARTURE: 01/23/25 17:24 HPI General Mode of arrival: ambulatory. Date/Time Provider Initiated Documentation: 01/23/25 15:09. Limitations to Documentation: no limitations. Information obtained by: patient, RN/MD and old records reviewed. HPI Narrative: This is a 50-year-old male patient with a past medical history significant for cellulitis and osteomyelitis of the left foot and great toe, admitted to our hospital with a plan for surgery, left AMA 2 days ago, now returning for admission to undergo surgery with podiatry tomorrow. The patient reports that he has been feeling all right since he left, was able to take his fluconazole but has not been taking any antibiotics to treat the known Pseudomonas in his culture. He reports that he took all his typical meds this morning including his methadone. No reported fevers, endorses poor sensation of the left great toe, did rewrap the foot, which remains swollen and red. He is able to wiggle his toes appropriately and is otherwise in his normal state of health. Related Data Home Medications Medication Instructions Recorded Confirmed amitriptyline 50 mg tablet 50 mg PO QHS 02/13/22 01/23/25 aspirin 81 mg tablet,delayed 81 mg PO DAILY 02/13/22 01/23/25 release pregabalin 150 mg capsule (Lyrica) 150 mg PO TID 05/27/22 01/23/25 cholecalciferol (vitamin D3) 50 50 mcg PO DAILY 09/21/23 01/23/25 mcg (2,000 unit) tablet methadone 40 mg soluble tablet 45 mg PO DAILY 09/21/23 01/23/25 metoprolol succinate 50 mg 50 mg PO DAILY 09/21/23 01/23/25 tablet,extended release 24 hr salicylic acid 17 % topical gel 1 applic topical DAILY #7 grams 12/15/23 01/23/25 phytonadione (vitamin K1) 5 mg 5 mg PO DAILY 08/04/24 01/23/25 tablet gentamicin 0.1 % topical cream 1 applic topical QID #30 grams 08/25/24 01/23/25 amoxicillin 875 mg PO BID 01/09/25 01/23/25 ciprofloxacin HCl 500 mg tablet 750 mg (1.5 x 500 mg) PO BID 2 01/11/25 01/23/25 weeks #42 tabs delafloxacin 450 mg tablet 450 mg PO Q12H 5 days #10 tabs 01/21/25 01/23/25 fluconazole 100 mg tablet 100 mg PO DAILY #6 tabs 01/21/25 01/23/25 Previous Rx's Medication Instructions Recorded salicylic acid 17 % topical gel 1 applic topical DAILY #7 grams 12/15/23 gentamicin 0.1 % topical cream 1 applic topical QID #30 grams 08/25/24 ciprofloxacin HCl 500 mg tablet 750 mg (1.5 x 500 mg) PO BID 2 01/11/25 weeks #42 tabs delafloxacin 450 mg tablet 450 mg PO Q12H 5 days #10 tabs 01/21/25 fluconazole 100 mg tablet 100 mg PO DAILY #6 tabs 01/21/25 Allergies Allergy/AdvReac Type Severity Reaction Status Date / Time No Known Allergies Allergy Verified 01/23/25 15:12 General Stated Complaint: Orthopedic QASIM: 3 Exam Narrative Exam Narrative: Gen: Awake and alert, in no apparent distress HEENT: Non-icteric sclera Neck: Supple Lungs: No apparent respiratory distress, normal respiratory effort. CV: Appears well perfused, heart with slightly tachycardic rate but regular rhythm, strong distal pulses Abdomen: Non-distended MSK: Moves 4 extremities without apparent limitation in ROM. The patient has an Tacos wrap and dressing over the affected left foot, I am able to visualize the distal toes, which are slightly red and swollen. The patient is fairly insensate over the left great toe, without blue discoloration. Full range of motion otherwise. Brisk capillary refill Skin: Visualized skin without rashes, cyanosis. Neuro: Using a scooter for ambulation, no obvious focal deficits or facial asymmetry. Speaks in full, clear sentences. Psych: Appropriate for situation. Course Vital Signs Vital signs: Vital Signs Temperature 36.4 C 01/23/25 15:09 Pulse 108 H 01/23/25 15:09 Respiratory Rate 18 01/23/25 15:09 Blood Pressure 148/96 H 01/23/25 15:09 Pulse Oximetry 96 01/23/25 15:09 Temperature 36.4 C 01/23/25 15:09 Pulse 108 H 01/23/25 15:09 Respiratory Rate 18 01/23/25 15:09 Blood Pressure 148/96 H 01/23/25 15:09 Pulse Oximetry 96 01/23/25 15:09 Oxygen Delivery Method Room Air 01/23/25 15:09 Oxygen Flow Rate 0 01/23/25 15:09 Pain Level 0 01/23/25 15:09 Lab/Test Results Lab/Test Results: 01/23/25 15:46 Blood Blood Culture - Pending 01/23/25 15:46 Blood Blood Culture - Pending Medical Decision Making This is a 50-year-old male patient presenting for evaluation with a need to undergo surgical intervention for osteomyelitis and cellulitis of the left foot and great toe. Differential includes but is not limited to osteomyelitis and cellulitis, certainly considered development of sepsis and bacteremia, especially with the heart rate elevation to 108 at triage. The patient is without new evidence of other infections, trauma to suggest fracture or dislocation. We will obtain repeat screening labs to include CBC, CMP, magnesium, troponin, inflammatory markers, and blood cultures. I discussed the case with Dr. Glaser of podiatry, who recommends the patient receive a dose of Zosyn as his previous cultures were sensitive to that. I discussed the patient's case with the hospitalist given the need for admission prior to surgery, they request a preoperative EKG which was ordered and reviewed by myself, shows a normal sinus rhythm with evidence of ischemia, interval abnormality, or ectopy. I did review the patient's laboratory studies, which showed no leukocytosis, anemia, or thrombocytopenia. ESR and CRP are slightly elevated, there is no evidence of electrolyte derangement, kidney or liver injury. The patient was transferred from our department to the floor for ongoing workup and management of his infection in preparation for surgery tomorrow. Remained hemodynamically appropriate while under my care. Ivy Romero MD Quality:SDOH Health Related Social Needs: Health related social needs inadequate housing transpo insecurity house/econ circumstance lonely/isolated Health related social needs details Difficulty working w/ injury att, making it hard to meet economical needs PFSH All Active Problems (Updated 01/23/25 @ 19:16 by Ivy Romero MD) Depression (Chronic) On deep vein thrombosis (DVT) prophylaxis (Acute) Cellulitis of left foot (Acute) Methadone maintenance therapy patient (Chronic) Postoperative pain of extremity (Acute) Osteomyelitis of left foot (Acute) Receiving intravenous antibiotic treatment as outpatient (Acute) Low vitamin D level (Acute) Nonhealing ulcer of left lower extremity (Acute) Osteomyelitis (Acute) Cellulitis (Acute) Plantar verruca (Acute) Pain in right foot (Acute) Ulcer of left foot with fat layer exposed (Acute) Tachycardia (Acute) Peripheral nerve disease (Acute) Idiopathic peripheral neuropathy (Chronic) Hypertriglyceridemia (Acute) Hypertension (Chronic) Cellulitis of foot, right (Acute) toe of right foot Foot ulcer, left (Acute) Anemia (Chronic) Vitamin D deficiency (Acute) Tobacco user (Acute) Hyperlipidemia (Acute) Corns and callosities (Acute) Neuropathy (Acute) Neuropathic ulcer (Acute) Medical History Superior labrum [id number]-[id number] (SLAP) tear of left shoulder Surgical History S/P colonoscopy 04/13/2019 Family History Mother Alcohol use disorder Maternal Grandmother Stroke Social History Smoking/Tobacco Use Status: Current-Occasional Tobacco Type: cigarettes Smoking packs per day: 0.75 Smoking cigarettes per day: 15.0 Smoking risk assessment performed?: Yes Alcohol Intake: never Drug use: Daily Substance use type: marijuana Details: inhaled, daily, 1 gram daily, last use 01/09/25. Housing: house Do you feel safe at home: Yes Do you feel safe in your relationship?: Yes
--- NOTE | 2025-01-23 16:18 | W.PM.HP.N ---
Date of service: 01/23/25 Time of Service: 16:18 Assessment and Plan Assessment and plan (1) Cellulitis of left foot: Status: Acute Assessment and plan: Unhealed wound to plantar aspect of the left first metatarsal head ( great toe) that has been treated for ~ 2 years. Wound Cx grew pseudomonas, nataliia and mixed GPC : On Zosyn and diflucan Blood Cx 01/23 pending Podiatry request hospitalization for OR in AM NPO after midnight hospitalized for failing out pt treatment. Patient is a current smoker : nicotine and THC - PRN NRT Neuropathy - no c/o pain (2) Methadone maintenance therapy patient: Status: Chronic Assessment and plan: On home dose therapy Risk of QT prolongation with alzole Rx group - on telemetry (3) Idiopathic peripheral neuropathy: Status: Chronic Assessment and plan: Continue home dose Lyrica and outpatient management at discharge . (4) Depression: Status: Chronic Assessment and plan: On home medicine regimen (5) Hypertension: Status: Chronic Assessment and plan: on home medicine regimen (6) Low vitamin D level: Status: Acute Assessment and plan: on home medicine regimen (7) On deep vein thrombosis (DVT) prophylaxis: Status: Acute Assessment and plan: SCD's - as per recommendation form Kristian prediction score for risk of VTE Discussed with Dr Davis History of Present Illness History of Present Illness Chief Complaint: Left foot cellulitis Narrative: 50-year-old male with a PMHX opioid dependance on methadone , osteomyelytis , chronic wound in his left foot due to neuropathy with recent surgical procedure with podiatry and failed Augmentin and ciprofloxacin for cellulitis and wound infection initally referred by the podiatry office on 01/19 for evaluation of purulent material for IV antibiotics and possible surgical procedure on or 01/24 represented to the ED today s/p leaving AMA on 01/21/25 for ongoing left foot infection. At the time of AMA discharge fluconazole and delafloxacin ordered; patient took initial dose of fluconazole only. Previous wound culture grew nataliia albican and pseudomonas aeruginosa. Workup in the in the ED was unremarkable except for elevated CRP and ESR. Blood cultures drawn. The patient will be admitted to the hospitalist service for OR in AM as per Dr Glaser assembler skylights. In the ED the patient received IV zosyn. Fluconazole added to regimen. Full code status confirmed. The patient denies dizziness, chills, night sweat, fever, change in vision, chest pain, diarrhea, constipation. The patient reports ongoing numbness to LLE d/t idiopatic neuropathy, daily marijuana smoking and some nicotine smoking, denies illicit drug use. Review of Systems All systems reviewed & are unremarkable except as noted in HPI and below PFSH All Active Problems (Updated 01/23/25 @ 17:40 by Fidelia Yang APRN) Depression (Chronic) On deep vein thrombosis (DVT) prophylaxis (Acute) Cellulitis of left foot (Acute) Methadone maintenance therapy patient (Chronic) Postoperative pain of extremity (Acute) Osteomyelitis of left foot (Acute) Receiving intravenous antibiotic treatment as outpatient (Acute) Low vitamin D level (Acute) Nonhealing ulcer of left lower extremity (Acute) Osteomyelitis (Acute) Cellulitis (Acute) Plantar verruca (Acute) Pain in right foot (Acute) Ulcer of left foot with fat layer exposed (Acute) Tachycardia (Acute) Peripheral nerve disease (Acute) Idiopathic peripheral neuropathy (Chronic) Hypertriglyceridemia (Acute) Hypertension (Chronic) Cellulitis of foot, right (Acute) toe of right foot Foot ulcer, left (Acute) Anemia (Chronic) Vitamin D deficiency (Acute) Tobacco user (Acute) Hyperlipidemia (Acute) Corns and callosities (Acute) Neuropathy (Acute) Neuropathic ulcer (Acute) Medical History Superior labrum cmekdodz-te-vhbfahejt (SLAP) tear of left shoulder Surgical History S/P colonoscopy 04/13/2019 Family History Mother Alcohol use disorder Maternal Grandmother Stroke Social History Smoking/Tobacco Use Status: Current-Occasional Tobacco Type: cigarettes Smoking packs per day: 0.75 Smoking cigarettes per day: 15.0 Smoking risk assessment performed?: Yes Alcohol Intake: never Drug use: Daily Substance use type: marijuana Details: inhaled, daily, 1 gram daily, last use 01/09/25. Housing: house Do you feel safe at home: Yes Do you feel safe in your relationship?: Yes Meds Allergies and Home Medications Allergies Allergy/AdvReac Type Severity Reaction Status Date / Time No Known Allergies Allergy Verified 01/23/25 15:12 Home Medications Medication Instructions Recorded Confirmed Type amitriptyline 50 mg tablet 50 mg PO QHS 02/13/22 01/23/25 History aspirin 81 mg tablet,delayed 81 mg PO DAILY 02/13/22 01/23/25 History release pregabalin 150 mg capsule (Lyrica) 150 mg PO TID 05/27/22 01/23/25 History cholecalciferol (vitamin D3) 50 50 mcg PO DAILY 09/21/23 01/23/25 History mcg (2,000 unit) tablet methadone 40 mg soluble tablet 45 mg PO DAILY 09/21/23 01/23/25 History metoprolol succinate 50 mg 50 mg PO DAILY 09/21/23 01/23/25 History tablet,extended release 24 hr salicylic acid 17 % topical gel 1 applic topical DAILY #7 grams 12/15/23 01/23/25 Rx phytonadione (vitamin K1) 5 mg 5 mg PO DAILY 08/04/24 01/23/25 History tablet gentamicin 0.1 % topical cream 1 applic topical QID #30 grams 08/25/24 01/23/25 Rx amoxicillin 875 mg PO BID 01/09/25 01/23/25 History ciprofloxacin HCl 500 mg tablet 750 mg (1.5 x 500 mg) PO BID 2 01/11/25 01/23/25 Rx weeks #42 tabs delafloxacin 450 mg tablet 450 mg PO Q12H 5 days #10 tabs 01/21/25 01/23/25 Rx fluconazole 100 mg tablet 100 mg PO DAILY #6 tabs 01/21/25 01/23/25 Rx Exam Narrative Exam Narrative: Alert and oriented X 4 , calm and cooperative, no focal neurological deficit, clear lungs, S1, S2 regular , no murmur , abdomen in non-distended, soft and non-tender, no CVA tenderness, moves all 4 ext Dressing to left foot: Incision site to the plantar aspect of the left first metatarsal head with packing with moderate amount of greenish, no erythema, mild edema , no streaking noted, positive left pedal pulse felt at ankle level Results Labs 01/23/25 15:38 01/23/25 15:38 Last Vital Signs Temp 36.4 C 01/23/25 15:09 Pulse 108 H 01/23/25 15:09 Resp 18 01/23/25 15:09 BP 148/96 H 01/23/25 15:09 Pulse Ox 96 01/23/25 15:09 Time Spent Time spent with Patient: >75 minutes Time was spent: preparing to see the patient(eg.review tests), obtaining and/or reviewing separately otained hiistory, ordering medications,tests, procedures, referring, communicating with other health resident care manager, indepentently interpreting results, counseling the patient, care coordination and other
[2025-01-23 16:26] LABS: Abs Immature Grans 0.03 10^3/uL (0.0-0.06); HCT 43.6 % (40.0-50.0); HGB 14.8 g/dL (13.5-17.5); Immature Grans % 0.3 %; MCH 29.2 pg (27.0-33.0); MCHC 33.9 % (32.0-36.0); MCV 86 fL (80-95); MPV 9.6 fL (8.0-11.0); Platelet Count 275 10^3/uL (130-400); RBC 5.06 10^6/uL (4.36-5.78); RDW 12.7 % (11.8-14.1); RDW-SD 39.7 fL; WBC 9.05 10^3/uL (4.4-10.8)
[2025-01-23 16:27] LABS: ESR 41 mm/hr (0-20)
[2025-01-23] MEDS: PIPERACILLIN/TAZO 4.5 GM in Normal Saline 100 ML IVPB ×2 (16:27→21:55)
[2025-01-23 16:37] LABS: INR 0.9 (0.9-1.1); Prothrombin Time 9.5 sec (9.1-11.1)
[2025-01-23 16:46] LABS: ALT 22 U/L (16-63); AST 17 U/L (15-37); Albumin 3.5 g/dL (3.4-5.0); Alkaline Phosphatase 79 U/L (46-116); Anion Gap 9.8 mmol/L (3-11); BUN 9 mg/dL (7-18); Bilirubin, Total 0.2 mg/dL (0.2-1.0); C-Reactive Protein 2.04 mg/dL (<or=0.5); CO2 28.2 mmol/L (21.0-32.0); Calcium 9.5 mg/dL (8.5-10.1); Chloride 103 mmol/L (98-107); Glucose 115 mg/dL (74-106); Magnesium 2.2 mg/dL (1.8-2.4); Potassium 3.8 mmol/L (3.5-5.1); Sodium 141 mmol/L (136-145); Total Protein 8.1 g/dL (6.4-8.2)
--- NOTE | 2025-01-23 17:09 | W.PC.ACHO ---
Registration Status: REG ER Primary Language: Preferred Language: ED Information & Data Chief Complaint Orthopedic 01/23/25 16:04 Triage Note pt states was sent by 01/23/25 15:09 podiatry to check into ER for surgery tomorrow Medical / Surgical History (Last Reviewed 01/19/25 @ 19:28 by Ed Aquino) Superior labrum [id number]-[id number] (SLAP) tear of left shoulder (Last Reviewed 01/19/25 @ 19:28 by Ed Aquino) S/P colonoscopy Most Recent Vital Signs Temperature 36.4 C 01/23/25 15:09 Pulse 108 H 01/23/25 15:09 Respiratory Rate 18 01/23/25 15:09 Blood Pressure 148/96 H 01/23/25 15:09 Pulse Oximetry 96 01/23/25 15:09 Oxygen Delivery Method Room Air 01/23/25 15:09 Oxygen Flow Rate 0 01/23/25 15:09 Pain Level 0 01/23/25 15:09 Allergies No Known Allergies Allergy (Verified 01/23/25 15:12) IV IV Catheter Type [Left Saline Lock Antecubital] IV Catheter Gauge [Left 20 Antecubital] Diagnostics 01/23/25 Range/Units 16:05 WBC 9.05 (4.4-10.8) 10^3/uL RBC 5.06 (4.36-5.78) 10^6/uL Hgb 14.8 (13.5-17.5) g/dL Hct 43.6 (40.0-50.0) % MCV 86 (80-95) fL MCH 29.2 (27.0-33.0) pg MCHC 33.9 (32.0-36.0) % RDW 12.7 (11.8-14.1) % Plt Count 275 (130-400) 10^3/uL MPV 9.6 (8.0-11.0) fL Immature Gran % 0.3 % Neutrophils % 57.2 % Lymphocytes % 34.5 % Monocytes % 5.9 % Eosinophils % 1.4 % Basophils % 0.7 % Nucleated RBC % 0.0 (0.0-0.3) % Absolute Neutrophils 5.18 (1.2-6.7) 10^3/uL Absolute Lymphocytes 3.12 (1.2-3.4) 10^3/uL Absolute Monocytes 0.53 (0.1-0.8) 10^3/uL Absolute Eosinophils 0.13 (0.0-0.7) 10^3/uL Absolute Basophils 0.06 (0.0-0.2) 10^3/uL ESR 41 H (0-20) mm/hr PT 9.5 (9.1-11.1) sec INR 0.9 (0.9-1.1) Sodium 141 (136-145) mmol/L Potassium 3.8 (3.5-5.1) mmol/L Chloride 103 (98-107) mmol/L Carbon Dioxide 28.2 (21.0-32.0) mmol/L Anion Gap 9.8 (3-11) mmol/L BUN 9 (7-18) mg/dL Creatinine 0.8 (0.70-1.30) mg/dL Est GFR (CKD-EPI 2020) 106.48 (mL/min/1.73m2) Glucose 115 H (74-106) mg/dL Calcium 9.5 (8.5-10.1) mg/dL Magnesium 2.2 (1.8-2.4) mg/dL Total Bilirubin 0.2 (0.2-1.0) mg/dL AST 17 (15-37) U/L ALT 22 (16-63) U/L Alkaline Phosphatase 79 (46-116) U/L C-Reactive Protein 2.04 H (<or=0.5) mg/dL Total Protein 8.1 (6.4-8.2) g/dL Albumin 3.5 (3.4-5.0) g/dL 01/23/25 16:10 Blood Culture - Pending Blood 01/23/25 16:05 Blood Culture - Pending Blood Intake and Output - 24 Hour Total 01/23/25 15:07 thru 01/23/25 16:27 Intake Total 10 Balance 10 Weight 88.904 kg Intake: IV 10 Falls Risk Assessment History of Falls No History 01/23/25 16:28 Fall Total Score 0 01/23/25 16:28 Level of Risk Standard/Low Risk 01/23/25 16:28 v v v v v v v v v Sending and/or Receiving Nurses: Please use comment section below to note any information pertinent to the patient hand-off not included above. Information / Comments: Report received, all questions answered. Report received from: report received from ALISON Betancourt @ [id number]
[2025-01-23 17:36] VITALS: BP 129/92; PULSE 81; RESP 18; TEMP 36.5; O2SAT 97
[2025-01-23] MEDS: FLUCONAZOLE 200 MG/100 ML BAG 100 MG IVPB (17:54)
--- NOTE | 2025-01-23 18:21 | W.PM.PROGNOT ---
Date of Service Date of service: 01/24/25 Time of Service: 09:17 Assessment and Plan Assessment and plan (1) Cellulitis of left foot: Start date: 01/24/25 Start time: 11:37 Status: Acute Assessment and plan: left foot plantar wound unhealed wound to plantar aspect of the left first metatarsal head ( great toe) that has been treated for ~ 2 years. 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 (4) Depression: Status: Chronic Assessment and plan: Continue home medicine regimen (5) Hypertension: Status: Chronic Assessment and plan: Continue home medicine regimen - metoprolol CR transitioned to tartrate formulation prior to OR transiton s/p OR if medically ready (6) Low vitamin D level: Status: Acute Assessment and plan: Continue home medicine regimen (7) On deep vein thrombosis (DVT) prophylaxis: Status: Acute Assessment and plan: Ongoing SCD's - as per recommendation form Kristian prediction score for risk of VTE Patient refusing d/t neuropathy Consider BA's Discussed with Dr Davis Subjective Subjective Patient reports: no new complaints, voiding w/o difficulty, flatus and bowel movement (01/23); denies tolerating liquids well (npo for OR ), tolerating a regular diet (NPO for OR ), diarrhea, nausea, vomiting, shortness of breath or fever Exam Narrative Exam Narrative: Alert and oriented X 4 , calm and cooperative,neurologically intact , unalbored breathing clear lungs, S1, S2 regular , no murmur tele SR HR 70's, QTc 447 ms, abdomen in non-distended, soft and non-tender, moves all 4 ext Dressing to left foot: Incision site to the plantar aspect of the left first metatarsal head with packing with moderate amount of greenish purulent drainage, no erythema, mild edema cyanotic tissue distal to the wound, cap refill> 3 sec , no streaking noted, positive left pedal pulse felt at ankle level Objective Last Vital Signs Temp 36.5 C 01/23/25 17:36 Pulse 81 01/23/25 17:36 Resp 18 01/23/25 17:36 BP 129/92 H 01/23/25 17:36 Pulse Ox 97 01/23/25 17:36 Laboratory Results - last 24 hr 01/23/25 16:05 WBC 9.05 RBC 5.06 Hgb 14.8 Hct 43.6 MCV 86 MCH 29.2 MCHC 33.9 RDW 12.7 Plt Count 275 MPV 9.6 Immature Gran % 0.3 Neutrophils % 57.2 Lymphocytes % 34.5 Monocytes % 5.9 Eosinophils % 1.4 Basophils % 0.7 Nucleated RBC % 0.0 Absolute Neutrophils 5.18 Absolute Lymphocytes 3.12 Absolute Monocytes 0.53 Absolute Eosinophils 0.13 Absolute Basophils 0.06 ESR 41 H PT 9.5 INR 0.9 Sodium 141 Potassium 3.8 Chloride 103 Carbon Dioxide 28.2 Anion Gap 9.8 BUN 9 Creatinine 0.8 Est GFR (CKD-EPI 2020) 106.48 Glucose 115 H Calcium 9.5 Magnesium 2.2 Total Bilirubin 0.2 AST 17 ALT 22 Alkaline Phosphatase 79 C-Reactive Protein 2.04 H Total Protein 8.1 Albumin 3.5 Time Spent with Patient Time Spent with Patient: >50 minutes Time was spent: preparing to see the patient(eg.review tests), obtaining and/or reviewing separately otained hiistory, ordering medications,tests, procedures, referring, communicating with other health women's health care nurse practitioner, indepentently interpreting results, counseling the patient, care coordination and other
[2025-01-23 19:00] VITALS: BP 104/80; PULSE 71; RESP 16; TEMP 36.6; O2SAT 95
[2025-01-23] MEDS: Normal Saline Flush 10 ML SYR IVP (20:00)
[2025-01-23] MEDS: Amitriptyline 50 MG TAB PO (20:28)
[2025-01-23] MEDS: Pregabalin 150 MG CAP PO (20:28)
[2025-01-23 23:07] VITALS: BP 100/84; PULSE 73; RESP 16; TEMP 37.1; O2SAT 97
[2025-01-24 03:02] VITALS: BP 128/89; PULSE 60; RESP 14; TEMP 36.5; O2SAT 94
[2025-01-24] MEDS: PIPERACILLIN/TAZO 4.5 GM in Normal Saline 100 ML IVPB ×4 (04:21→21:02)
[2025-01-24 07:28] VITALS: BP 122/87; PULSE 59; RESP 17; TEMP 36.4; O2SAT 98
[2025-01-24] MEDS: Pregabalin 150 MG CAP PO ×3 (08:11→21:01)
[2025-01-24] MEDS: Methadone Liquid 10 MG/ML 45 MG PO (08:11)
[2025-01-24] MEDS: Metoprolol 25 MG TAB PO ×2 (08:11→21:01)
[2025-01-24] MEDS: Normal Saline Flush 10 ML SYR IVP ×3 (08:14→21:52)
--- NOTE | 2025-01-24 08:44 | PDOC.CMIN ---
Date of service: 01/24/25 Time of Service: 08:44 Care Management Initial Assmt Initial Assessment Reason for Hospitalization: cellulitis Functional Status/Living Situation Patient Presentation: Peña was sitting up in bed visiting with his Carol when CM met with him. He was polite and agreeable to conversation. Peña was admitted with cellulitis of his left foot, great toe. He has had a wound for about 2 years that he stated starts to heal, gets worse, opens up, and then starts all over again. He was supposed to have surgery today but Peña stated he was told they had to cancel it because the OR was so busy. He has been told he will have the surgery on and hopefully discharge home later that day or Thursday. Peña lives in [facility] in a single family home with his Carol, her parents, uncle and 12 year old son. He has been out of work for the past year because of his foot. 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 His original wound is the result of a work related injury where a screw penetrated his shoe and went into his foot. Peña uses a scooter and crutches for ambulatory assistance. He is independent at baseline with ADLs and does not receive any community services. Peña has idiopathic peripheral neuropathy which has resulted in both a loss of sensation in his feet as well as chronic pain. Peña shared that he has been on methadone for many years for pain control. His is concerned that he will be labeled as an addict because of the medication but asserts he has never had an issue with narcotics. Unfortunately he does not have a provider who can prescribe the methadone so he must get it through [facility]. Peña also takes Lyrica for the neuropathy which he states is very effective. Town of Residence: [place] Resides with: Spouse ( Carol) Significant Other/Family: Local Employment Status: Unemployed Instrumental Activities of Daily Living (ADLs): Independent Medications Medication Management: No Issues/Barriers identified Physical Functioning/Mobility Assistive Device: scooter and crutches Advance Directives Advance Directives: Do you have an Advance Directive: N 06/11/22, 11:27 AD On File at [facility]: N 06/11/22, 11:27 Date Asked 01/19/25 01/19/25, 16:14 AD Date Reviewed COLST On File at [facility] COLST Date Scanned Code Status Resuscitation Status Full Code Insurance Coverage/Financial Issues Insurance: Medicaid Care Team Visit Care Team Role Provider Type Fidelia Yang APRN MD [facility] STAFF PHYSICIAN Tino Fong Primary Care Provider NON-[facility] STAFF PHYSICIAN Ivy Romero MD Emergency Provider [facility] STAFF PHYSICIAN Vladimir Davsi MD Admit Provider [facility] STAFF PHYSICIAN Attending Provider Discharge Potential Discharge Needs: PCP F/U Appt Anticipated Barriers to Discharge: None Identified Patient/Family Education Needs: Review discharge instructions, discuss Ask Me Three Transportation: Private vehicle Plan: Anticipate Peña will be discharged home with no new services when medically cleared. He will follow up with Podiatry, his PCP and plan of care and transport with family. CM will follow and continue to support discharge planning. Social Determinants of Health Screening Will the Patient Participate in the Screening?: Declined to provide PFSH All Active Problems Depression (Chronic) On deep vein thrombosis (DVT) prophylaxis (Acute) Cellulitis of left foot (Acute) Methadone maintenance therapy patient (Chronic) Postoperative pain of extremity (Acute) Osteomyelitis of left foot (Acute) Receiving intravenous antibiotic treatment as outpatient (Acute) Low vitamin D level (Acute) Nonhealing ulcer of left lower extremity (Acute) Osteomyelitis (Acute) Cellulitis (Acute) Plantar verruca (Acute) Pain in right foot (Acute) Ulcer of left foot with fat layer exposed (Acute) Tachycardia (Acute) Peripheral nerve disease (Acute) Idiopathic peripheral neuropathy (Chronic) Hypertriglyceridemia (Acute) Hypertension (Chronic) Cellulitis of foot, right (Acute) toe of right foot Foot ulcer, left (Acute) Anemia (Chronic) Vitamin D deficiency (Acute) Tobacco user (Acute) Hyperlipidemia (Acute) Corns and callosities (Acute) Neuropathy (Acute) Neuropathic ulcer (Acute) Medical History Superior labrum hkclbhab-qn-[id number] (SLAP) tear of left shoulder Surgical History S/P colonoscopy 04/13/2019 Family History Mother Alcohol use disorder Maternal Grandmother Stroke Social History Smoking/Tobacco Use Status: Current-Occasional Tobacco Type: cigarettes Smoking packs per day: 0.75 Smoking cigarettes per day: 15.0 Smoking risk assessment performed?: Yes Alcohol Intake: never Drug use: Daily Substance use type: marijuana Details: inhaled, daily, 1 gram daily, last use 01/09/25. Housing: house Do you feel safe at home: Yes Do you feel safe in your relationship?: Yes
--- NOTE | 2025-01-24 11:23 | PHA.REVIEW2 ---
Pharmacy Admission Review Admission Clinical Review Admission Pharmacy Review: On deep vein thrombosis (DVT) prophylaxis (Acute) Cellulitis of left foot (Acute) Low vitamin D level (Acute) No Known Allergies Allergy (Verified 01/23/25 15:12) Resuscitation Status Full Code Height 5 ft 9 in Weight 86.5 kg Pharmacy Admission Review Renal Dosing Renal Dosing: BUN 9 mg/dL (7-18) 01/23/25 16:05 Creatinine 0.8 mg/dL (0.70-1.30) 01/23/25 16:05 Medications needing adjustments: Reviewed (CrCl 117.6 mL/min) List of meds needing interventions: Current medications are okay Anticoagulation Anticoagulation: Hgb 14.8 g/dL (13.5-17.5) 01/23/25 16:05 Hct 43.6 % (40.0-50.0) 01/23/25 16:05 Plt Count 275 10^3/uL (130-400) 01/23/25 16:05 INR 0.9 (0.9-1.1) 01/23/25 16:05 Creatinine 0.8 mg/dL (0.70-1.30) 01/23/25 16:05 DVT Prophylaxis: Reviewed (SCDs) Opiate Usage Evaluate Pain Scale/Pains Meds: Reviewed (methadone 45mg daily (dose confirmed with BAART on 01/20 during last admission)) Scheduled Bowel Reg ordered if on Opiates?: No (PRN Miralax) Relevant Labs Relevant Labs: ESR 41 mm/hr (0-20) H 01/23/25 16:05 Sodium 141 mmol/L (136-145) 01/23/25 16:05 Potassium 3.8 mmol/L (3.5-5.1) 01/23/25 16:05 Chloride 103 mmol/L (98-107) 01/23/25 16:05 Magnesium 2.2 mg/dL (1.8-2.4) 01/23/25 16:05 C-Reactive Protein 2.04 mg/dL (<or=0.5) H 01/23/25 16:05 Electrolytes, C-Reactive P, ESR: Reviewed (No new labs for today) Cardiac Review BP, HR, EF%: Reviewed (BP WNL, HR 59) List meds needing interventions: Has order for metoprolol XL 50mg daily (on hold) and metoprolol 25mg BID QTc Review QTc: Reviewed (429 from 01/23/25) IV to PO Switch IV Medications: Reviewed (fluconazole and Zosyn ) Home Meds Home Med List reviewed: Reviewed Relevent Home Meds Not ordered & why?: gentamicin cream and salicylic acid gel Current Meds Current Medication Order Review: Intervened Comments: Changed IV ED access order Fluconazole order was put in for now one today at 1500. Confirmed with provider should be q24h scheduled. Updated order for 1800 (was given 200mg yesterday at 1800) Pharmacy Antibiotic Review Relevant Labs: Relevant Labs 01/23/25 16:05 C-Reactive Protein 2.04 H WBC 9.05 10^3/uL (4.4-10.8) 01/23/25 16:05 Temperature 36.4 C Temperature 36.5 C Wound culture - left foot (01/19/25 during last admission) Organism 1 Pseudomonas aeruginosa#2 GROWTH RARE GROWTH Organism 2 Pseudomonas aeruginosa GROWTH RARE GROWTH Organism 3 Dang albicans GROWTH RARE GROWTH Organism 4 Normal Fatmata GROWTH RARE GROWTH Pseu aeru#2 Pseu aeru Result Result Ceftazidime S S Gentamicin I I Imipenem S S Tobramycin S S Piperacillin/Tazobactam S S Pharmacy Antibiotic Activity: C/S review and Reviewed, no change Comments: Patient is on Zosyn and fluconazole for cellulitis/osteomyelitis. Patient left AMA 01/21 and came back to ER yesterday. Blood cultures pending.
[2025-01-24 11:33] VITALS: BP 128/91; PULSE 61; RESP 16; TEMP 36.6; O2SAT 96
--- NOTE | 2025-01-24 12:15 | W.PODCONSULT ---
Date of service: 01/24/25 Time of Service: 12:15 Assessment and Plan Assessment and plan (1) Osteomyelitis of left foot: Status: Acute (2) Postoperative pain of extremity: Status: Acute (3) Nonhealing ulcer of left lower extremity: Status: Acute (4) Osteomyelitis: Status: Acute (5) Cellulitis: Status: Acute (6) Vitamin D deficiency: Status: Acute Assessment and plan: Patient was seen bedside. The left lower extremity wound appears somewhat better however the wound is still open with metatarsal head exposed. Dressings were applied with packing gauze, 4 x 4, Kerlix and an Tacos wrap. Will continue dressing changes daily. Patient would like Amputation of the area so that the area heals faster. I recommend a partial first ray amputation. Patient understands agrees. Discussed with the risks, benefits and possible complications of the procedure with the patient today. Will plan for the procedure at 7:30 AM on . Patient to be n.p.o. midnight prior to the procedure. Will continue antibiotics had a lengthy discussion with the patient regarding leaving AMA as that does delay surgery Which was planned for yesterday (11/13/2024) History of Present Illness Narrative: 50-year-old nondiabetic male patient with recurrent, and nonhealing ulceration with osteomyelitis to the left first metatarsal head. Patient had an OR debridement, I&D and sesamoidectomy on 01/09/2025. On follow-up, he was noted to have increased drainage to the left foot dressings with heavy green drainage. He had been on ciprofloxacin however, drainage persisted. The wound did not heal and did have dehiscence. At that time, he was advised to go to the hospital for an admission for IV antibiotics and debridement however, over the weekend his wound was looking better and therefore he left AMA as he did not see the need to stay in the hospital and stated he would go to [facility] instead. He called our office again yesterday to see when his surgery was planned for yesterday which was 01/31/2025 however surgery was canceled since he left AMA he was no longer in house and therefore, he was advised that surgery was in fact canceled since he left AMA. He expressed to me interested in having surgery done again and was advised to present to the ER again for an admit for surgical planning and IV antibiotics. He is seen bedside today overall feels okay states that he has been having a mental breakdown because of the foot. His is here today and suggests that he needs therapy Consults Consult date: 01/24/25 Requesting physician: Fidelia Yang Review of Systems Integumentary/Breasts Comments: Ulcer left foot subfirst metatarsal head exposed Neurologic Comments: Absent sensation bilaterally PFSH All Active Problems Depression (Chronic) On deep vein thrombosis (DVT) prophylaxis (Acute) Cellulitis of left foot (Acute) Methadone maintenance therapy patient (Chronic) Postoperative pain of extremity (Acute) Osteomyelitis of left foot (Acute) Receiving intravenous antibiotic treatment as outpatient (Acute) Low vitamin D level (Acute) Nonhealing ulcer of left lower extremity (Acute) Osteomyelitis (Acute) Cellulitis (Acute) Plantar verruca (Acute) Pain in right foot (Acute) Ulcer of left foot with fat layer exposed (Acute) Tachycardia (Acute) Peripheral nerve disease (Acute) Idiopathic peripheral neuropathy (Chronic) Hypertriglyceridemia (Acute) Hypertension (Chronic) Cellulitis of foot, right (Acute) toe of right foot Foot ulcer, left (Acute) Anemia (Chronic) Vitamin D deficiency (Acute) Tobacco user (Acute) Hyperlipidemia (Acute) Corns and callosities (Acute) Neuropathy (Acute) Neuropathic ulcer (Acute) Medical History Superior labrum asxwwnur-fw-dyifhfyyc (SLAP) tear of left shoulder Surgical History S/P colonoscopy 04/13/2019 Family History Mother Alcohol use disorder Maternal Grandmother Stroke Social History Smoking/Tobacco Use Status: Current-Occasional Tobacco Type: cigarettes Smoking packs per day: 0.75 Smoking cigarettes per day: 15.0 Smoking risk assessment performed?: Yes Alcohol Intake: never Drug use: Daily Substance use type: marijuana Details: inhaled, daily, 1 gram daily, last use 01/09/25. Housing: house Do you feel safe at home: Yes Do you feel safe in your relationship?: Yes Exam Extrem Other: Vascular: DP nonpalpable to the left, PT pulses 2/4 bilaterally. CFT < 3 seconds, pedal hair present, normal proximal to distal cooling, normal skin texture and turgor MSK: Bilateral hallux valgus deformities with lesser digital deformities noted, semi-reducible, with prominent metatarsal heads plantarly. Reduced contracture to the Achilles noted to the left as noted with increase in dorsiflexion at the ankle joint. Derm: Incision site noted to the plantar aspect of the left first metatarsal head consistent with a sesamoidectomy procedure, wound dehiscence noted, less green drainage noted mild purulence noted, no erythema noted there is edema noted there is metatarsal head exposed at this time, no proximal streaking or lymphangitis mild malodor noted. Incision sites noted medially and laterally consistent with endoscopic gastrocnemius recession with sutures in place without any signs of dehiscence no redness no swelling drainage or odor from the incision site some sanguinous drainage to the inner bandages Neuro: Protective sensation absent via [place] 5.07 monofilament. Negative tinel’s sign. Muscle strength 5/5. No other neurological deficits Results Last Vital Signs Temp 97.9 F 01/24/25 11:33 Pulse 61 01/24/25 11:33 Resp 16 01/24/25 11:33 BP 128/91 H 01/24/25 11:33 Pulse Ox 96 01/24/25 11:33 Labs 01/23/25 16:05 01/23/25 16:05 Labs: Laboratory Results - last 24 hr 01/23/25 16:05 WBC 9.05 RBC 5.06 Hgb 14.8 Hct 43.6 MCV 86 MCH 29.2 MCHC 33.9 RDW 12.7 Plt Count 275 MPV 9.6 Immature Gran % 0.3 Neutrophils % 57.2 Lymphocytes % 34.5 Monocytes % 5.9 Eosinophils % 1.4 Basophils % 0.7 Nucleated RBC % 0.0 Absolute Neutrophils 5.18 Absolute Lymphocytes 3.12 Absolute Monocytes 0.53 Absolute Eosinophils 0.13 Absolute Basophils 0.06 ESR 41 H PT 9.5 INR 0.9 Sodium 141 Potassium 3.8 Chloride 103 Carbon Dioxide 28.2 Anion Gap 9.8 BUN 9 Creatinine 0.8 Est GFR (CKD-EPI 2021) 106.48 Glucose 115 H Calcium 9.5 Magnesium 2.2 Total Bilirubin 0.2 AST 17 ALT 22 Alkaline Phosphatase 79 C-Reactive Protein 2.04 H Total Protein 8.1 Albumin 3.5
--- NOTE | 2025-01-24 15:17 | CHAPLAIN ---
Jose was in bed listening with headphones on. I introduced myself, explained my role and offered support. His Carol was visiting with him. According to Care Management notes, Jose will have a procedure tomorrow.
[2025-01-24 15:23] VITALS: BP 148/86; PULSE 59; RESP 16; TEMP 36.1; O2SAT 96
--- NOTE | 2025-01-24 17:15 | RT.EKG_ITS ---
APPROVED REPORT Exam: Resting ECG Reason for Exam: Change in rhythm question Patient Location: I HR:62 bpm ECG Measurements Heart Rate 62 AXIS OK 185 P 27 QRSd 93 QRS 9 QT 435 T 28 QTc 442 Conclusion Sinus rhythm...normal P axis, V-rate 50- 99 early transition...QRS area>0 in V2 Baseline wander in lead(s) V6
[2025-01-24 19:20] VITALS: BP 139/100; PULSE 66; RESP 15; TEMP 36; O2SAT 97
[2025-01-24] MEDS: Amitriptyline 50 MG TAB PO (21:01)
[2025-01-24 22:58] VITALS: BP 147/94; PULSE 60; RESP 15; TEMP 36.2; O2SAT 98
[2025-01-25] VITALS (7 sets, daily range): BP systolic 125–153; BP diastolic 88–99; PULSE 57–69; RESP 14–20; TEMP 35.6–36.4; O2SAT 96–99
[2025-01-25] MEDS: PIPERACILLIN/TAZO 4.5 GM in Normal Saline 100 ML IVPB ×4 (04:37→21:57)
--- NOTE | 2025-01-25 08:12 | PDOC.CMPRO ---
Date of service: 01/25/25 Time of Service: 08:13 Care Management Progress Note Progress Note Text Progress Note Text: Peña was sitting up in bed watching TV when CM met with him. He was polite and engaged easily with CM. Jaqueline is scheduled to go to the OR tomorrow for a partial first ray amputation of his left foot. Peña explained that he has been dealing with this wound for about 2 years and he needs resolution and to get on with his life. Dr. Glaser offered him the choice of doing another wash out of the wound or amputation and he chose the latter. He did admit he is a bit nervous, which is to be expected. Peña continues to deny pain and stated his biggest problem at the moment is boredom. He has a book and his phone so was not interested in puzzle books or coloring material. Discharge Potential Discharge Needs: PCP F/U Appt and Surgical F/U Appt Anticipated Barriers to Discharge: None Identified Patient/Family Education Needs: Review discharge instructions, discuss Ask Me Three Transportation: Private vehicle Plan: Anticipate Peña will be discharged home with no new services when medically cleared. He will follow up with Podiatry, his PCP and plan of care and transport with family. CM will follow and continue to support discharge planning Social Determinants of Health Screening Will the Patient Participate in the Screening?: Declined to provide
[2025-01-25] MEDS: Aspirin E.C. 81 MG TABEC PO (08:41)
[2025-01-25] MEDS: Metoprolol CR 50 MG TABCR PO (08:41)
[2025-01-25] MEDS: Cholecalciferol (Vitamin D3) 1,000 UNIT TAB 2000 UNITS PO (08:41)
[2025-01-25] MEDS: Pregabalin 150 MG CAP PO ×3 (08:41→20:16)
[2025-01-25] MEDS: Phytonadione 5 MG TABLET PO (08:41)
[2025-01-25] MEDS: Normal Saline Flush 10 ML SYR IVP ×2 (08:42→20:15)
[2025-01-25] MEDS: Methadone Liquid 10 MG/ML 45 MG PO (08:42)
--- NOTE | 2025-01-25 09:43 | PGE_ITS ---
Date of Service Date of service: 01/25/25 Time of Service: 09:43 Assessment and Plan Assessment and plan (1) Cellulitis of left foot: Status: Acute Assessment and plan: Improving while on IV antibiotic despite peripheral cyanosis still noted to the unhealed wound to plantar aspect of the left first metatarsal head ( great toe) that has been treated for ~ 2 years. Previous Wound Cx grew pseudomonas, nataliia and mixed GPC : Will continue pipperacillin tazo bactam and fluconazole - failed opt treatment Will transition to oral fluconazole status post ORneeded Blood Cx 01/23 - now growth at 24 hours Podiatry requested hospitalization for OR procedure - will be NPO tonight after midnight Patient is a current smoker : nicotine and THC - PRN NRT and PRN lorazepam a dded for increased anxiety Historey of neuropathy - no c/o pain (2) Methadone maintenance therapy patient: Status: Chronic Assessment and plan: On home dose methadone regimen Risk of QT prolongation with diflucan - on telemetry no QTC> 450 ms (3) Idiopathic peripheral neuropathy: Status: Chronic Assessment and plan: On pregabalin home dose Continue outpatient management at discharge . (4) Depression: Status: Chronic Assessment and plan: Ongoing home medicine regimen (5) Hypertension: Status: Chronic Assessment and plan: Ongoing home medicine regimen - with metoprolol succinate (6) Low vitamin D level: Status: Acute Assessment and plan: on home dose supplementation (7) On deep vein thrombosis (DVT) prophylaxis: Status: Acute Assessment and plan: Ongoing SCD's - as per recommendation form Kristian prediction score for risk of VTE If the patient refuses consider TEDs Discussed with Dr Davis Subjective Subjective Patient reports: no new complaints, tolerating liquids well, tolerating a regular diet, voiding w/o difficulty, flatus, bowel movement (01/23) and shortness of breath; denies diarrhea, nausea, vomiting or fever Exam Narrative Exam Narrative: Alert and oriented X 4 , calm and cooperative,neurologically intact , clear lungs, S1, S2 regular ,tele SA HR 50-60's, QTc <450 ms, abdomen in non- distended, soft and non-tender, moves all 4 ext Dressing to left footDCI : Incision site to the plantar aspect of the left first metatarsal head with packing with mild amount of greenish purulent drainage, mild edema, ongoing cyanosis distal to the wound, cap refill> 3 sec , no streaking noted, positive left pedal pulse felt at ankle level Objective Last Vital Signs Temp 36.4 C L 01/25/25 08:31 Pulse 69 01/25/25 08:31 Resp 20 01/25/25 08:31 BP 153/93 H 01/25/25 08:31 Pulse Ox 97 01/25/25 08:31 Time Spent with Patient Time Spent with Patient: >50 minutes Time was spent: preparing to see the patient(eg.review tests), obtaining and/or reviewing separately otained hiistory, ordering medications,tests, procedures, referring, communicating with other health care management associate, indepentently interpreting results, counseling the patient, care coordination and other
[2025-01-25 12:35] LABS: Abs Immature Grans 0.02 10^3/uL (0.0-0.06); HCT 43.1 % (40.0-50.0); HGB 14.7 g/dL (13.5-17.5); Immature Grans % 0.2 %; MCH 29.6 pg (27.0-33.0); MCHC 34.1 % (32.0-36.0); MCV 87 fL (80-95); MPV 9.5 fL (8.0-11.0); Platelet Count 245 10^3/uL (130-400); RBC 4.96 10^6/uL (4.36-5.78); RDW 12.4 % (11.8-14.1); RDW-SD 39.2 fL; WBC 8.27 10^3/uL (4.4-10.8)
[2025-01-25 12:50] LABS: Anion Gap 10.0 mmol/L (3-11); BUN 11 mg/dL (7-18); C-Reactive Protein 0.98 mg/dL (<or=0.5); CO2 29.0 mmol/L (21.0-32.0); Calcium 8.9 mg/dL (8.5-10.1); Chloride 102 mmol/L (98-107); Glucose 115 mg/dL (74-106); Magnesium 2.1 mg/dL (1.8-2.4); Potassium 3.9 mmol/L (3.5-5.1); Sodium 141 mmol/L (136-145)
[2025-01-25] MEDS: Amitriptyline 50 MG TAB PO (20:16)
[2025-01-26] VITALS (70 sets, daily range): BP systolic 75–146; BP diastolic 48–99; PULSE 45–87; RESP 7–22; TEMP 36.1–36.7; O2SAT 90–98; BMI 27.6
[2025-01-26] MEDS: PIPERACILLIN/TAZO 4.5 GM in Normal Saline 100 ML IVPB ×2 (04:42→11:38)
--- NOTE | 2025-01-26 07:11 | ANES.PREOP_ITS ---
General Info Date of Service Date Performed: 01/26/25 Height: 5 ft 9 in Weight: 84.8 kg Body Mass Index (BMI): 27.6 Surgical Procedure: Operation Date: 01/26/25 07:40 Proposed Procedure Side Surgeon p Toe Amputation Partial 1st Ray Jessie Glaser DPM Actual Procedure Side Surgeon p Toe Amputation Partial 1st Ray Left Jessie Glaser DPM Pre-Op Diagnosis Post-Op Diagnosis Osteomyelitis of left foot Meds Allergies and Home Medications Allergies Allergy/AdvReac Type Severity Reaction Status Date / Time No Known Allergies Allergy Verified 01/23/25 15:12 Home Medication Medication Instructions Recorded amitriptyline 50 mg tablet 50 mg PO QHS 02/13/22 aspirin 81 mg tablet,delayed 81 mg PO DAILY 02/13/22 release pregabalin 150 mg capsule (Lyrica) 150 mg PO TID 05/27 cholecalciferol (vitamin D3) 50 50 mcg PO DAILY mcg (2,000 unit) tablet methadone 40 mg soluble tablet 45 mg PO DAILY 09/21/23 metoprolol succinate 50 mg 50 mg PO DAILY 09/21/23 tablet,extended release 24 hr salicylic acid 17 % topical gel 1 applic topical DAILY #7 grams 12/15/23 phytonadione (vitamin K1) 5 mg 5 mg PO DAILY 08/04/24 tablet gentamicin 0.1 % topical cream 1 applic topical QID #3 0 grams 08/25/24 amoxicillin 875 mg PO BID 01/09/25 ciprofloxacin HCl 500 mg tablet 750 mg (1.5 x 500 mg) PO BID 2 01/11/25 weeks #42 tabs delafloxacin 450 mg tablet 450 mg PO Q12H 5 days #10 t abs 01/21/25 fluconazole 100 mg tablet 100 mg PO DAILY #6 tabs 01/04 11/28 Current Visit Medications: Current Medications Generic Name Dose Route Start Last Admin Trade Name Freq PRN Reason Stop Dose Admin Amitriptyline HCl 50 mg 01/23/25 20:00 01/25/25 20:16 Amitriptyline 50 Mg Tab PO 50 mg HS TRAV Administration Aspirin 81 mg 01/24/25 08:30 01/25/25 08:41 Aspirin E.C. 81 Mg Tabec PO 81 mg DAILY TRAV Administration Cholecalciferol 2,000 units 01/24/25 08:30 01/25/25 08:41 Cholecalciferol (Vitamin D3) 1,000 Unit Tab PO 2,000 units DAILY TRAV Administration Piperacillin Sod/Tazobactam 100 mls @ 200 mls/hr 01/23/25 22:00 01/26/25 05:15 Sod 4.5 gm/ Sodium Chloride IVPB Infused Q6H TRAV Infusion Fluconazole 100 mg/ Device 50 mls @ 50 mls/hr 01/24/25 18:00 01/25/25 19:15 IVPB Infused Q24H TRAV Infusion IV Miscellaneous Supplies 1 each 01/24/25 09:15 Iv Access IV DIRECTED TRAV Lorazepam 0.5 mg 01/24/25 12:40 Lorazepam 0.5 Mg Tab PO TID PRN PRN Methadone HCl 45 mg 01/24/25 08:30 01/25/25 08:42 Methadone Liquid 10 Mg/Ml PO 45 mg DAILY TRAV Administration Metoprolol Succinate 50 mg 01/24/25 08:30 01/25/25 08:41 Metoprolol Cr 50 Mg Tabcr PO 50 mg On Hold: 01/25/25 08:30 DAILY TRAV Administration Metoprolol Tartrate 25 mg 01/26/25 08:30 Metoprolol 25 Mg Tab PO BID TRAV Nicotine 14 mg 01/23/25 17:17 Nicotine 14 Mg/24 Hr Patch TD DAILY PRN PRN Phytonadione 5 mg 01/24/25 08:30 01/25/25 08:41 Phytonadione 5 Mg Tablet PO 5 mg DAILY TRAV Administration Polyethylene Glycol 17 gm 01/23/25 17:17 Polyethylene Glycol 3350 17 Gm Packet PO DAILY PRN PRN Constipation Pregabalin 150 mg 01/23/25 20:00 01/25/25 20:16 Pregabalin 150 Mg Cap PO 150 mg TID TRAV Administration Prochlorperazine Edisylate 5 mg 01/24/25 11:40 Prochlorperazine 10 Mg/2 Ml Vial IVP Q4H PRN PRN Sodium Chloride 0 ml 01/23/25 15:38 01/24/25 10:45 Normal Saline Flush 10 Ml Syr IVP 10 ml PRN PRN Administration Sodium Chloride 0 ml 01/23/25 20:00 01/25/25 20:15 Normal Saline Flush 10 Ml Syr IVP 10 ml BID TRAV Administration PFSH Active Problems Active Problems: Problem Status Onset Code Depression Chronic F32.A On deep vein thrombosis (DVT) prophylaxis Acute Z79.899 Cellulitis of left foot Acute L03.116 Methadone maintenance therapy patient Chronic Z79.891 Postoperative pain of extremity Acute G89.18, M79.609 Osteomyelitis of left foot Acute M86.9 Receiving intravenous antibiotic treatment as outpatient Acute Z79.2 Low vitamin D level Acute R79.89 Nonhealing ulcer of left lower extremity Acute L97.929 Osteomyelitis Acute M86.9 Cellulitis Acute L03.90 Plantar verruca Acute B07.0 Pain in right foot Acute M79.671 Ulcer of left foot with fat layer exposed Acute L97.522 Tachycardia Acute R00.0 Peripheral nerve disease Acute G62.9 Idiopathic peripheral neuropathy Chronic G60.9 Hypertriglyceridemia Acute E78.1 Hypertension Chronic I10 Cellulitis of foot, right Acute L03.115 Foot ulcer, left Acute L97.529 Anemia Chronic D64.9 Vitamin D deficiency Acute E55.9 Tobacco user Acute Z72.0 Hyperlipidemia Acute E78.5 Corns and callosities Acute L84 Neuropathy Acute G62.9 Neuropathic ulcer Acute L98.499 Medical History Medical History Superior labrum hcerbqwm-ve-llbkgpiuh (SLAP) tear of left shoulder Surgical History Surgical History S/P colonoscopy 04/13/2019 Tobacco Smoking/Tobacco Use Status: Current-Occasional Tobacco Type: cigarettes Smoking packs per day: 0.75 Smoking cigarettes per day: 15.0 Passive smoking exposure: No Alcohol Alcohol Intake: never Substance Use Substance use: Daily Substance use type: marijuana Details: inhaled, daily, 1 gram daily, last use 01/09/25. Vital Signs and Lab Results Vital Signs Most Recent Vital Signs in EMR: Most Recent Vital Signs Temp Pulse Resp BP Pulse Ox 36.1 C L 58 L 14 134/87 97 01/26/25 03:28 01/26/25 03:28 01/26/25 03:28 01/26/25 03:28 01/26/25 03:28 Lab Results 01/25/25 12:23 01/25/25 12:23 Complete Blood Count: 2 WBC, (4.4-10.8) 8.27 10^3/uL 01/25/25, 12:23 RBC, (4.36-5.78) 4.96 10^6/uL 01/25/25, 12:23 Hgb, (13.5-17.5) 14.7 g/dL 01/25/25, 12:23 Hct, (40.0-50.0) 43.1 % 01/25/25, 12: Plt Count, (130-400) 245 10^3/uL 01/25/25, 12:23 Complete Metabolic Panel: 2 Sodium, (136-145) 141 mmol/L 01/25/25, 12:23 Potassium, (3.5-5.1) 3.9 mmol/L 01/25/25, 12:23 Chloride, (98-107) 102 mmol/L 01/25/25, 12:23 Carbon Dioxide, (21.0-32.0) 29.0 mmol/L 01/25/25, 12 : BUN, (7-18) 11 mg/dL 01/25/25, 12:23 Creatinine, (0.70-1.30) 0.8 mg/dL 01/25/25, 12:23 Est GFR (CKD-EPI 2020), (mL/min/1.73m2) 106.48 01/25/25, 12:23 Magnesium, (1.8-2.4) 2.1 mg/dL 01/25/25, 12:23 Calcium, (8.5-10.1) 8.9 mg/dL 01/25/25, 12:23 Albumin, (3.4-5.0) 3.5 g/dL 01/23/25, 16:05 Glucose, (74-106) 115 mg/dL H 01/25/25, 12:23 C-Reactive Protein, (<or=0.5) 0.98 mg/dL H 01/25/25, 12:23 Liver Function Panel: 2 ALT, (16-63) 22 U/L 01/23/25, 16:05 AST, (15-37) 17 U/L 01/23/25, 16:05 Coagulation Panel: 2 INR, (0.9-1.1) 0.9 01/23/25, 16:05 PT, (9.1-11.1) 9.5 sec 01/23/25, 16:05 Venous Blood Gas: 2 VBG pH, (7.31-7.41) 7.35 01/19/25, 16:57 VBG pO2 37 mmHg 01/19/25, 16:57 VBG pCO2, (41-51) 54 mmHg H 01/19/25, 16:57 VBG O2 Saturation 77 % 01/19/25, 16:57 VBG HCO3, (23-28) 30 mmol/L H 01/19/25, 16:57 VBG Base Excess, (-2-3) 4 mmol/L H 01/19/25, 16:57 VBG Total CO2, (24-29) 26 mmol/L 01/19/25, 16:57 Infectious Disease: 2 SARS-CoV-2 (PCR), (Negative) Negative 01/19/25, 1 9:54 COVID-19 Source Nasopharynx 01/19/25, 19:54 Influenza Type A (PCR), (Negative) Negative 01/19, 19:54 Influenza Type B (PCR), (Negative) Negative 01/19, 19:54 RSV (PCR), (Negative) Negative 01/19/25, 19:54 Imaging and Studies Imaging and Studies Study information below may be from another EMR and interpreted by another provider. Please see original notes in EMR for more complete details. EKG Summary: 01/15/24: Exam: Resting ECG Reason for Exam: need for antibiotics for wound- sugguested by [facility] Patient Location: O HR:85 bpm ECG Measurements Heart Rate 85 AXIS TX 164 P 62 QRSd 94 QRS 15 QT 378 T34 QTc 450 Conclusion Sinus rhythm...normal P axis, V-rate 50- 99 Normal Electrocardiogram Anesthesia Assessment and Plan Anesthesia History Personal History: No History of Anesthesia Complications Family History: No Family History of Anesthesia Complications Exercise Tolerance Exercise Tolerance: Metabolic Equivalents>4 Pertinent Negatives Pertinent Negatives: No Symptoms of GERD Cardiac & Pulmonary Exam Cardiac Exam: Normal S1/S2 Heart Sounds Pulmonary Exam: Clear Bilateral Breath Sounds Implantable Cardiac Device Does patient have a Pacemaker or an ICD?: No Airway Exam Known Difficult Airway: No Mallampati Class: 2 Mouth Opening: Normal (> 3cm) Thyromental Distance: Greater than 3 cm Neck Range of Motion: Full ROM Neck Circumference: Normal Teeth Condition: Generalized Poor Dentition ASA Classification ASA Score: ASA 2 Emergency Case?: No NPO Status NPO Status: NPO Clears >2 hours, Solids >8 hours Anesthesia Plan Resuscitation Status: Full Code Anesthesia Technique: General Anesthesia Airway Planned: Natural Airway Monitors Used: Standard Monitors
[2025-01-26 07:31] LABS: Abs Immature Grans 0.03 10^3/uL (0.0-0.06); HCT 40.6 % (40.0-50.0); HGB 13.7 g/dL (13.5-17.5); Immature Grans % 0.3 %; MCH 29.1 pg (27.0-33.0); MCHC 33.7 % (32.0-36.0); MCV 86 fL (80-95); MPV 9.7 fL (8.0-11.0); Platelet Count 237 10^3/uL (130-400); RBC 4.71 10^6/uL (4.36-5.78); RDW 12.2 % (11.8-14.1); RDW-SD 38.6 fL; WBC 8.74 10^3/uL (4.4-10.8)
[2025-01-26] MEDS: Lactated Ringers 1,000 ML 50 ML IV ×2 (07:35→10:11)
[2025-01-26 07:54] LABS: Anion Gap 9.1 mmol/L (3-11); BUN 12 mg/dL (7-18); CO2 28.9 mmol/L (21.0-32.0); Calcium 9.0 mg/dL (8.5-10.1); Chloride 103 mmol/L (98-107); Glucose 87 mg/dL (74-106); Potassium 3.7 mmol/L (3.5-5.1); Sodium 141 mmol/L (136-145)
--- NOTE | 2025-01-26 08:00 | BONE_PTH ---
PATIENT: Jose Sibley LOC: U#:[id number] AGE/SX: 50/M ROOM: MS.214 RE01/23/[address]: Vladimir Davis MD : [id number] BED: A DIS: 01/27/2025 SPEC #: [id number] RECD: 01/26/25 12:42 STATUS: LEVI REQ #: [id number] ANDREZ: 01/26/25 08:[address]: Vladimir Davis DEPT: Surgical Specimen RECD BY: Mona Martin ENTERED: 01/26/25 12:44 SP TYPE: Bone OTHR DR: Tino Fong Denis J Sara Zaidi, THONY Tissues: 1 - BONE BX/CURRETTE NOT PATH FRACTURE 2 - BONE BX/CURRETTE NOT PATH FRACTURE Procedures: GROSS AND MICRO LEVEL 4 GROSS AND MICRO LEVEL 3 DECALCIFICATION Comments: [id number]
[2025-01-26] MEDS: Lidocaine 1% Pres-Free 30 ML VIAL (08:07)
--- NOTE | 2025-01-26 08:31 | PDOC.CMPRO ---
Date of service: 01/26/25 Time of Service: 08:31 Care Management Progress Note Progress Note Text Progress Note Text: Peña was sitting up in bed when CM met with him. He had gone to surgery earlier today and had a partial first ray amputation of his left foot. He denied pain but expressed great frustration with not being able to go home. He thought he would be discharged later today and learned that he must remain until his culture results are finalized. he did have cultures taken on 01/19 which grew pseudomonas auruginosa and nataliia and he has been receiving appropriate antibiotic coverage for those 2 organisms. While he stated he understands, he is still not happy with the situation. Discharge Potential Discharge Needs: PCP F/U Appt and Surgical F/U Appt Anticipated Barriers to Discharge: None Identified Patient/Family Education Needs: Review discharge instructions, discuss Ask Me Three Transportation: Private vehicle Plan: Anticipate Peña will be discharged home with no new services when medically cleared. He will follow up with Podiatry, his PCP and plan of care and transport with family. CM will follow and continue to support discharge planning. Social Determinants of Health Screening Will the Patient Participate in the Screening?: Declined to provide
--- NOTE | 2025-01-26 09:37 | W.PM.OP ---
Operative Note Operative Note PRE-OP DIAGNOSIS: 1. Chronic nonhealing ulcers left first metatarsal head with bone exposed. #2 osteomyelitis left foot POST-OP DIAGNOSIS: same PROCEDURE: Secondary closure wound dehiscence with extensive debridement and partial first ray amputation, left foot SURGEON: Jessie Glaser ANESTHESIA TYPE: Local By Surgeon (10 mL 1% lidocaine plain preop) and MAC Refer to Anesthesia Record ESTIMATED BLOOD LOSS: 50 PATHOLOGY: other (Bone biopsy left first metatarsal head. Amputated metatarsal head and left hallux) TOURNIQUET TIME: 90 COMPLICATIONS: None Patient was transported to: PACU Patient's condition: stable Indications: 50-year-old male patient with chronic, recurrent, nonhealing ulcer to the plantar aspect of the left first metatarsal head. He has failed conservative care. There was evidence for osteomyelitis to the sesamoids. His sesamoidectomy was performed however he has had a wound dehiscence to the ulcer with heavy drainage. He has been on antibiotics. I discussed attempting closure of the wound again with the patient with continued wound care versus secondary closure as well as a partial first ray amputation to the left foot. Patient proceeded with a partial first ray amputation at this time to allow this wound to heal. I discussed all the risks, benefits and possible complications of the planned procedure including but not committed to pain, nerve pain, CRPS, phantom limb pain, hematoma, seroma, delayed healing, nonhealing, wound dehiscence, need for further surgery or amputation, limb loss, DVT, PE, stroke, WA or with anesthesia. The chart was reviewed. Imaging were reviewed. The plantar aspect of the head of the first metatarsal is completely exposed at this time and therefore considered to be with osteomyelitis. No contraindications noted to the procedure at this time. Findings: Heavy necrotic tissue to the wound bed, wound dehiscence, edges of the wound noted to be necrotic and nonviable, drainage noted from the wound, head of the metatarsal exposed Procedure Description: Patient was identified in preop holding. Site was marked. Patient was then brought to the operating room placed on the operating table in supine position with the anesthesia team. After induction of anesthesia local analgesia was obtained using 10 mL of lidocaine plain preoperatively in a Allison block fashion. An ankle tourniquet was then applied. The left lower extremity was then scrubbed prepped and draped in usual aseptic manner. Next, the plantar aspect of the left foot was evaluated and noted to be with a full-thickness ulceration/dehiscence wound to the left foot this was attempted to be reapproximated however would not have been able to be closed without tension. A sterile #15 blade was used to excisionally debride all necrotic, nonviable tissue from the previous incision site which resulted in 2 semielliptical type incisions with the head exposed. A rongeur was used to obtain a bony specimen to be sent to pathology and another specimen to be sent for cultures. Decision was made in favor of a dorsal incision for exposure to the metatarsal shaft so as to prevent lengthening the plantar incision which has a higher risk for delayed healing is evident with the current wound dehiscence. Next, the dorsal curvilinear incision was made just lateral to the EHL tendon for exposure to the midshaft of the first metatarsal this incision was planned 3 cm away from the plantar medial incision to allow for flap closure and to prevent necrosis. The incision was made using a sterile #15 blade to the level of bone, meticulous attention was paid to the dissection to prevent flap necrosis, the incision was then deepened and the metatarsal shaft was exposed via sharp dissection and medial and lateral direction. After adequate exposure, a bone saw was used to transect the first metatarsal midshaft level and a dorsal distal to plantar medial direction. Next, the dorsal incision was further carried out more dorsally to provide for exposure to the hallux towards the base of the proximal phalanx this incision was deepened through the skin and subcutaneous tissue after adequate exposure to the base of the proximal phalanx was made the skin and subcutaneous tissue was reflected away from the base of the hallux using sharp and dull dissection, this incision was made circumferentially around the hallux while leaving a dorsal flap intact to allow for closure. The hallux was then removed from the operative field using sharp and dull dissection using a combination of a sterile #15 blade as well as a [place] elevator. The tourniquet was then deflated. No active bleeders were noted. Next, the incision sites were irrigated with copious amounts of sterile saline. Closure was obtained with 2-0 Vicryl for deep closure. The skin was reapproximated with a combination of 2-0 and 3-0 Prolene, 2-0 Prolene was used at the plantar incision site, 3-0 Prolene was used at the dorsal incision site. The skin was noted to be reapproximated well and noted to be healthy pink with brisk refill. A VIDAL wound VAC was applied to allow for adequate drainage and granulation of the wound however, a proper seal was not achieved and therefore the wound VAC was removed. Dressings were then applied with Xeroform gauze, 4 x 4, Kerlix and an [place] wrap. The patient tolerated the procedure and anesthesia well and vital signs stable and vascular status intact to the left lower extremity. He was transferred to PACU for further monitoring. He will be transferred to the floor when stable. Patient is to leave the dressings clean, dry and intact until his follow-up appointment in office. He is to remain strictly nonweightbearing to the left lower extremity with a knee scooter which he has. Will continue IV antibiotics for at least 2 weeks will await recommendation from infectious disease he has a referral made. Date of Procedure: 01/26/25
--- NOTE | 2025-01-26 10:08 | W.ANESPOSTOP ---
Postoperative Evaluation Date, Time and Location Date Performed: 01/26/25 Time Performed: 10:08 Patient Location: PACU Vital Signs Most Recent Imported Vital Signs: Most Recent Vital Signs Temp Pulse Resp BP Pulse Ox 36.3 C L 63 15 122/75 97 01/26/25 09:47 01/26/25 10:06 01/26/25 10:06 01/26/25 10:06 01/26/25 10:06 Pain Score Most Recent Pain Score: Most Recent Pain Score Pain Level 0 01/26/25 10:05 Assessment Mental Status: Awake (Alert & Oriented to Patient Baseline) Airway and Respiratory Function: Patent airway with normal (patient baseline) respiratory exam Cardiovascular Function: Hemodynamically Stable Hydration Status: Adequately Hydrated Nausea & Vomiting: No Nausea or Vomiting Pain: Pt. Denies Any Pain Peripheral Nerve Block: Patient did not receive a nerve block
[2025-01-26] MEDS: Normal Saline Flush 10 ML SYR IVP ×3 (11:38→20:01)
[2025-01-26] MEDS: Cholecalciferol (Vitamin D3) 1,000 UNIT TAB 2000 UNITS PO (11:39)
[2025-01-26] MEDS: Pregabalin 150 MG CAP PO ×3 (11:39→20:00)
[2025-01-26] MEDS: Phytonadione 5 MG TABLET PO (11:39)
[2025-01-26] MEDS: Aspirin E.C. 81 MG TABEC PO (11:39)
[2025-01-26] MEDS: Methadone Liquid 10 MG/ML 45 MG PO (11:39)
[2025-01-26] MEDS: Metoprolol 25 MG TAB PO (11:40)
--- NOTE | 2025-01-26 12:03 | PGE_ITS ---
Date of Service Date of service: 01/26/25 Time of Service: 12:03 Assessment and Plan Assessment and plan (1) Cellulitis of left foot: Status: Acute Assessment and plan: Improving while on IV antibiotic -unhealed wound to plantar aspect of the left first metatarsal head ( great toe) that has been treated for ~ 2 years. Previous Wound Cx grew pseudomonas, nataliia and mixed GPC : pipperacillin tazo bactam transitioned to levaquin and ongoing fluconazole at osteomyelitis dosing as bone was exposed as per podiatry s/p OR this AM - failed Filed opt treatment wound cultures pending Blood Cx 01/23 - now growth to date Patient is a current smoker : Continue nicotine and THC - PRN NRT and PRN lorazepam added for increased anxiety Historey of neuropathy - no c/o pain -= will continue to monitor s/p OR (2) Methadone maintenance therapy patient: Status: Chronic Assessment and plan: On home dose methadone regimen Risk of QT prolongation with diflucan - no QTC> 450 ms Telemetry d/c EKG prior to levaquin IV dose Serial EKG opt if discharged on oral (3) Idiopathic peripheral neuropathy: Status: Chronic Assessment and plan: Continue pregabalin home dose and outpatient management at discharge . (4) Depression: Status: Chronic Assessment and plan: Continue out patient medicine regimen (5) Hypertension: Status: Chronic Assessment and plan: Ongoing home dose metoprolol succinate (6) Low vitamin D level: Status: Acute Assessment and plan: Continue out patient regimen (7) On deep vein thrombosis (DVT) prophylaxis: Status: Acute Assessment and plan: Ongoing SCD's ordered on arrival - as per recommendation form Kristian prediction score for risk of VTE If the patient refuses consider TEDs Discussed with Dr Davis Subjective Subjective Patient reports: voiding w/o difficulty and shortness of breath; denies no bowel movement, nausea, vomiting or fever Interval history since last seen: Slept well, NPO overnight for surgery this AM , now tolerating enteral intake. Stating that he would like to leave but agrees to stay until AM Objective Last Vital Signs Temp 36.3 C L 01/26/25 11:33 Pulse 70 01/26/25 11:33 Resp 16 01/26/25 11:33 BP 141/89 H 01/26/25 11:33 Pulse Ox 96 01/26/25 11:33 Laboratory Results - last 24 hr 01/25/25 01/26/25 12:23 06:25 WBC 8.27 8.74 RBC 4.96 4.71 Hgb 14.7 13.7 Hct 43.1 40.6 MCV 87 86 MCH 29.6 29.1 MCHC 34.1 33.7 RDW 12.4 12.2 Plt Count 245 237 MPV 9.5 9.7 Immature Gran % 0.2 0.3 Neutrophils % 53.0 50.9 Lymphocytes % 37.2 38.9 Monocytes % 6.7 6.5 Eosinophils % 2.4 2.6 Basophils % 0.5 0.8 Nucleated RBC % 0.0 0.0 Absolute Neutrophils 4.38 4.44 Absolute Lymphocytes 3.08 3.40 Absolute Monocytes 0.55 0.57 Absolute Eosinophils 0.20 0.23 Absolute Basophils 0.04 0.07 Sodium 141 141 Potassium 3.9 3.7 Chloride 102 103 Carbon Dioxide 29.0 28.9 Anion Gap 10.0 9.1 BUN 11 12 Creatinine 0.8 0.8 Est GFR (CKD-EPI 2020) 106.48 106.48 Glucose 115 H 87 Calcium 8.9 9.0 Magnesium 2.1 C-Reactive Protein 0.98 H Time Spent with Patient Time Spent with Patient: >50 minutes Time was spent: preparing to see the patient(eg.review tests), obtaining and/or reviewing separately otained hiistory, ordering medications,tests, procedures, referring, communicating with other health family day carer, indepentently interpreting results, counseling the patient and care coordination
[2025-01-26] MEDS: Metoprolol CR 50 MG TABCR PO (15:06)
[2025-01-26] MEDS: levoFLOXacin 750 MG/150 ML BAG 100 MG IVPB (17:17)
[2025-01-26] MEDS: Amitriptyline 50 MG TAB PO (20:00)
[2025-01-26] MEDS: Docusate Sodium 100 MG CAP PO (20:00)
[2025-01-27 03:09] VITALS: BP 149/97; PULSE 60; RESP 18; TEMP 36.7; O2SAT 97
[2025-01-27 06:36] LABS: Abs Immature Grans 0.07 10^3/uL (0.0-0.06); HCT 42.3 % (40.0-50.0); HGB 14.3 g/dL (13.5-17.5); Immature Grans % 0.5 %; MCH 29.7 pg (27.0-33.0); MCHC 33.8 % (32.0-36.0); MCV 88 fL (80-95); MPV 10.0 fL (8.0-11.0); Platelet Count 265 10^3/uL (130-400); RBC 4.82 10^6/uL (4.36-5.78); RDW 12.3 % (11.8-14.1); RDW-SD 39.3 fL; WBC 15.50 10^3/uL (4.4-10.8)
[2025-01-27 06:46] LABS: Anion Gap 9.7 mmol/L (3-11); BUN 11 mg/dL (7-18); CO2 27.3 mmol/L (21.0-32.0); Calcium 9.5 mg/dL (8.5-10.1); Chloride 103 mmol/L (98-107); Glucose 107 mg/dL (74-106); Potassium 4.1 mmol/L (3.5-5.1); Sodium 140 mmol/L (136-145)
[2025-01-27 06:51] LABS: C-Reactive Protein 0.79 mg/dL (<or=0.5)
[2025-01-27 07:21] VITALS: BP 163/106; PULSE 63; RESP 17; TEMP 36.5; O2SAT 98
[2025-01-27] MEDS: Aspirin E.C. 81 MG TABEC PO (09:53)
[2025-01-27] MEDS: Cholecalciferol (Vitamin D3) 1,000 UNIT TAB 2000 UNITS PO (09:53)
[2025-01-27] MEDS: Metoprolol CR 50 MG TABCR PO (09:53)
[2025-01-27] MEDS: Phytonadione 5 MG TABLET PO (09:53)
[2025-01-27] MEDS: Methadone Liquid 10 MG/ML 45 MG PO (09:54)
[2025-01-27] MEDS: Normal Saline Flush 10 ML SYR IVP ×2 (09:54→14:14)
[2025-01-27] MEDS: Pregabalin 150 MG CAP PO ×2 (09:55→13:55)
--- NOTE | 2025-01-27 10:30 | RT.EKG_ITS ---
APPROVED REPORT Exam: Resting ECG Reason for Exam: QTc prolongation Patient Location: I HR:61 bpm ECG Measurements Heart Rate 61 AXIS ME 194 P 10 QRSd 90 QRS 8 QT 440 T 20 QTc 444 Conclusion Sinus rhythm...normal P axis, V-rate 50- 99 Normal Electrocardiogram Baseline wander in lead(s) V2,V4,V6
[2025-01-27 11:00] VITALS: BP 187/110; PULSE 56; RESP 16; TEMP 36.5; O2SAT 99
[2025-01-27] MEDS: LORazepam 0.5 MG TAB PO (13:55)
--- NOTE | 2025-01-27 13:58 | DSE_ITS ---
Date of service: 01/27/25 Time of Service: 13:58 DS: Diagnosis Discharge Diagnosis (1) Cellulitis of left foot: Status: Acute (2) Methadone maintenance therapy patient: Status: Chronic (3) Idiopathic peripheral neuropathy: Status: Chronic (4) Depression: Status: Chronic (5) Hypertension: Status: Chronic (6) Low vitamin D level: Status: Acute (7) On deep vein thrombosis (DVT) prophylaxis: Status: Acute Discharge Plan Disposition Patient Disposition: Home Condition: Stable Discharge Details Reason For Visit: left Lower Extremity Cellulitis, Left Plantar Woun Admit Date/Time: 01/23/25 16:35 Admit Provider: Vladimir Davis Attending Provider: Vladimir Davis Primary Care Provider: Tino Fong Hospital Course Hospital Course: 50-year-old male with a PMHX opioid dependance on methadone , osteomyelytis , chronic wound in his left foot due to penetrating injury 2 years ago in the setting neuropathy with recent surgical procedure with podiatry and failed Augmentin and oral ciprofloxacin for cellulitis and wound infection initially referred by the podiatry office on 01/19 for evaluation of purulent material for IV antibiotics and possible surgical procedure on or 01/24 represented to the ED today s/p leaving AMA on 01/21/25 for ongoing left foot infection. At the time of AMA discharge fluconazole and delafloxacin ordered; patient took an initial dose of fluconazole only. Previous wound culture grew nataliia albican and pseudomonas aeruginosa. Workup in the in the ED was unremarkable except for elevated CRP and ESR. Blood cultures drawn. The patient was admitted to the hospitalist service for OR in AM as per Dr Glaser [employer] assistant manager and ongoing treatment with IV Zosyn started in the ED. Fluconazole added to regimen with telemetry monitoring of QT interval. On 01/26/25 a secondary closure wound dehiscence with extensive debridement and partial first ray amputation, left foot was completed by Dr. Glaser [employer] assistant manager with bone biopsy left first metatarsal head and amputation of metatarsal head and left hallux. As per discussion with Dr. Glaser Levaquin was recommended by ID, the bone was exposed and osteomyelitis with both Pseudomonas aeruginosa and Nataliia albicans. IV Levaquin was ordered and Fluconazole dose was adjusted; zosyn stopped. QTc remained below 450 with QT at 440. Recommendation for intermittent QT monitoring and order will be placed. Further orders for EKG as per PCP with follow-up with 7 days of discharge. Wound culture received at 08:05AM by lab/ microbiology shows no reported growth on 01/27/25 at 13:34. CRP is trending down and most likely reactive leukocytosis post-op, vital signs are stable, and no recorded fever. The patient is to leave the dressings clean, dry and intact until his follow-up appointment in office. He is to remain strictly non-weightbearing to the left lower extremity with a knee scooter which he has. As per discussion with Dr. Glaser and Dr[place] Paz [place] [facility] could be discharged home today on oral Levaquin and oral fluconazole as oral bioavalability is near 100% for both agents. Will treat for 2 weeks with follow-up on pathology/ biopsy. Discussed with Dr. Corrigan Buskirk Meds and New Rx's Prescriptions: New levofloxacin 750 mg tablet 750 mg PO DAILY Qty: 14 0RF fluconazole 200 mg tablet 400 mg PO DAILY Qty: 24 0RF Continued amitriptyline 50 mg tablet 50 mg PO QHS aspirin 81 mg tablet,delayed release (DR/EC) 81 mg PO DAILY phytonadione (vitamin K1) 5 mg tablet 5 mg PO DAILY pregabalin [Lyrica] 150 mg capsule 150 mg PO TID methadone 40 mg tablet,soluble 45 mg PO DAILY metoprolol succinate 50 mg tablet extended release 24 hr 50 mg PO DAILY cholecalciferol (vitamin D3) 50 mcg (2,000 unit) tablet 50 mcg PO DAILY salicylic acid 17 % gel 1 applic topical DAILY Qty: 7 0RF Rx Instructions: apply to each wart gentamicin 0.1 % cream 1 applic topical QID Qty: 30 0RF amoxicillin 875 mg PO BID Rx Instructions: 875 mg orally; twice daily Discontinued ciprofloxacin HCl 500 mg tablet 750 mg PO BID 14 Days Qty: 42 0RF delafloxacin 450 mg tablet 450 mg PO Q12H 5 Days Qty: 10 0RF fluconazole 100 mg tablet 100 mg PO DAILY Qty: 6 0RF Rx Instructions: Take 200 mg orally on the first day then 100 mg on subsequent days- reach out to your PCP or podiatry for re-evaluation Discharge Instructions Referrals: Tino Fong [Primary Care Provider, Medicine] Referral Note: follow-up with 7 days of discharge Jessie Glaser DPM [[facility] STAFF PHYSICIAN, Podiatry] Referral Note: In office in 2 weeks from 01/26/25 Activity:: Activity as Tolerated Equipment/Supplies:: Has a scooter Diet:: as per [facility] Discharge Orders Other Ambulatory Orders: EKG (Routine) Timeframe: 20250202 Location: None Selected Ordered By: Fidelia Yang DS: Summary Time Spent with Patient providing and/or coordinating discharge services: Greater than 30 minutes Status at Discharge Functional status at discharge: uses cane/walker (scooter) Overall status at discharge: patient is progressing back to baseline Mental Status: mental status grossly normal Speech and Movement: speech and movement normal Mood: labile mood and irritable mood Affect: anxious affect Quality:SDOH Health Related Social Needs: Health related social needs inadequate housing transpo insecurity house/econ circumstance lonely/isolated Health related social needs details Difficulty working w/ injury att, making it hard to meet economical needs Exam Narrative Exam Narrative: Alert and oriented X 4 , calm and cooperative,neurologically intact , clear lungs, S1, S2 regular ,tele SA HR 50-60's, QTc <450 ms, abdomen in non- distended, soft and non-tender, moves all 4 ext Dressing to left footDCI : Incision site to the plantar aspect of the left first metatarsal head with packing with mild amount of greenish purulent drainage, mild edema, ongoing cyanosis distal to the wound, cap refill> 3 sec , no streaking noted, positive left pedal pulse felt at ankle level Psych Mental Status: mental status grossly normal Speech and Movement: speech and movement normal Mood: labile mood and irritable mood Affect: anxious affect DS: Data Vitals/I&O Vitals and I&O: Vital Signs Temperature 36.5 C 01/27/25 11:00 Temperature Source Temporal Artery Scan 01/27/25 11:00 Pulse 56 L 01/27/25 11:00 Pulse Rhythm Regular 01/23/25 17:36 Pulse 57 L 01/26/25 10:21 Respiratory Rate 16 01/27/25 11:00 Respiratory Effort Normal 01/23/25 17:36 Respiratory Depth Normal 01/23/25 17:36 Respiratory Pattern Normal 01/23/25 17:36 Blood Pressure 187/110 H 01/27/25 11:00 Blood Pressure Mean 135 01/27/25 11:00 Pulse Oximetry 99 10/24/25 11:00 Respiratory End-tidal CO2 41 01/26/25 10:16 Oxygen Delivery Method Room Air 01/27/25 11:00 Oxygen Flow Rate 0 01/27/25 11:00 Pain Level 0 01/27/25 11:00 Comment rn notified 01/24/25 11:33 Intake & Output 01/26/25 01/27/25 01/27/25 23:59 11:59 23:59 Intake Total 1783.333 / 2725.833 Balance 1783.333 / 2675.833 Weight 83.007 kg Intake: IV 1303.333 / 2245.833 Oral 480 / 480 Other: Urine Color Yellow Urine Odor Normal Comment per pt Data Completed and Pending Pending Labs at Discharge: 01/23/25 01/25/25 01/26/25 16:05 12:23 06:25 WBC 9.05 8.27 8.74 RBC 5.06 4.96 4.71 Hgb 14.8 14.7 13.7 Hct 43.6 43.1 40.6 MCV 86 87 86 MCH 29.2 29.6 29.1 MCHC 33.9 34.1 33.7 RDW 12.7 12.4 12.2 Plt Count 275 245 237 MPV 9.6 9.5 9.7 Immature Gran % 0.3 0.2 0.3 Neutrophils % 57.2 53.0 50.9 Lymphocytes % 34.5 37.2 38.9 Monocytes % 5.9 6.7 6.5 Eosinophils % 1.4 2.4 2.6 Basophils % 0.7 0.5 0.8 Nucleated RBC % 0.0 0.0 0.0 Absolute Neutrophils 5.18 4.38 4.44 Absolute Lymphocytes 3.12 3.08 3.40 Absolute Monocytes 0.53 0.55 0.57 Absolute Eosinophils 0.13 0.20 0.23 Absolute Basophils 0.06 0.04 0.07 ESR 41 H PT 9.5 INR 0.9 Sodium 141 141 141 Potassium 3.8 3.9 3.7 Chloride 103 102 103 Carbon Dioxide 28.2 29.0 28.9 Anion Gap 9.8 10.0 9.1 BUN 9 11 12 Creatinine 0.8 0.8 0.8 Est GFR (CKD-EPI 2020) 106.48 106.48 106.48 Glucose 115 H 115 H 87 Calcium 9.5 8.9 9.0 Magnesium 2.2 2.1 Total Bilirubin 0.2 AST 17 ALT 22 Alkaline Phosphatase 79 C-Reactive Protein 2.04 H 0.98 H Total Protein 8.1 Albumin 3.5 01/27/25 05:55 WBC 15.50 H RBC 4.82 Hgb 14.3 Hct 42.3 MCV 88 MCH 29.7 MCHC 33.8 RDW 12.3 Plt Count 265 MPV 10.0 Immature Gran % 0.5 Neutrophils % 74.1 Lymphocytes % 20.1 Monocytes % 5.1 Eosinophils % 0.1 Basophils % 0.1 Nucleated RBC % 0.0 Absolute Neutrophils 11.49 H Absolute Lymphocytes 3.12 Absolute Monocytes 0.79 Absolute Eosinophils 0.02 Absolute Basophils 0.02 ESR PT INR Sodium 140 Potassium 4.1 Chloride 103 Carbon Dioxide 27.3 Anion Gap 9.7 BUN 11 Creatinine 0.8 Est GFR (CKD-EPI 2020) 106.48 Glucose 107 H Calcium 9.5 Magnesium Total Bilirubin AST ALT Alkaline Phosphatase C-Reactive Protein 0.79 H Total Protein Albumin Preliminary micro results at discharge 01/26/25 08:00 Foot - Left Surgical Culture - Preliminary 01/23/25 16:10 Blood Blood Culture - Preliminary NO GROWTH 72 HOURS 01/23/25 16:05 Blood Blood Culture - Preliminary NO GROWTH 72 HOURS 01/26/25 08:00 Foot - Left Anaerobic Culture - Pending [facility] All Active Problems Depression (Chronic) On deep vein thrombosis (DVT) prophylaxis (Acute) Cellulitis of left foot (Acute) Methadone maintenance therapy patient (Chronic) Postoperative pain of extremity (Acute) Osteomyelitis of left foot (Acute) Receiving intravenous antibiotic treatment as outpatient (Acute) Low vitamin D level (Acute) Nonhealing ulcer of left lower extremity (Acute) Osteomyelitis (Acute) Cellulitis (Acute) Plantar verruca (Acute) Pain in right foot (Acute) Ulcer of left foot with fat layer exposed (Acute) Tachycardia (Acute) Peripheral nerve disease (Acute) Idiopathic peripheral neuropathy (Chronic) Hypertriglyceridemia (Acute) Hypertension (Chronic) Cellulitis of foot, right (Acute) toe of right foot Foot ulcer, left (Acute) Anemia (Chronic) Vitamin D deficiency (Acute) Tobacco user (Acute) Hyperlipidemia (Acute) Corns and callosities (Acute) Neuropathy (Acute) Neuropathic ulcer (Acute) Medical History Superior labrum [id number] (SLAP) tear of left shoulder Surgical History S/P colonoscopy 04/13/2019 Family History Mother Alcohol use disorder Maternal Grandmother Stroke Social History Smoking/Tobacco Use Status: Current-Occasional Tobacco Type: cigarettes Smoking packs per day: 0.75 Smoking cigarettes per day: 15.0 Smoking risk assessment performed?: Yes Alcohol Intake: never Drug use: Daily Substance use type: marijuana Details: inhaled, daily, 1 gram daily, last use 01/09/25. Housing: house Do you feel safe at home: Yes Do you feel safe in your relationship?: Yes Time Spent with Patient Time Spent with Patient: >85 minutes Time was spent: preparing to see the patient(eg.review tests), obtaining and/or reviewing separately otained hiistory, ordering medications,tests, procedures, referring, communicating with other health pet care attendant, indepentently interpreting results, counseling the patient, care coordination and other
[2025-01-27] MEDS: levoFLOXacin 750 MG/150 ML BAG 100 MG IVPB (16:26)
--- NOTE | 2025-01-27 17:32 | PDOC.CMDIS ---
Date of service: 01/27/25 Time of Service: 14:00 LACE Index Scoring Tool Questions: Length of Stay (in days): 4 - 6 Was the patient admitted via the E.D.?: Yes E.D. Visits: 2 Answers: Total Score: 9 Risk of Readmission: Low Risk Care Management Discharge Plan Reason for Hospitalization: cellulitis of the left foot - s/p secondary closure wound dehiscence with extensive debridement and partial first ray amputation, left foot Discharge Plan: Peña was discharge this evening with no new services. He will f/u with his PCP and with podiatry and continue per his plan of care. Peña was driven home in a private vehicle by his . Peña was given a last dose letter for BAART. Patient/Family Education Needs: Review of discharge instructions, activity, limitations and discuss Ask me 3. SDOH Health Related Social Needs: Health related social needs inadequate housing transpo insecurity house/econ circumstance lonely/isolated Health related social needs details Difficulty working w/ injury att, making it hard to meet economical needs
== END 2025-01-27 17:34 | disposition home or self-care (01) ==
LOC: ER 15:47 → MS 17:23
PROVIDERS: Podiatrist; Admitting Provider Family Medicine; Emergency Provider Emergency Medicine; PCP Family Medicine; Responsible Provider Nurse Practitioner Acute Care; Visit Provider Family Medicine
PROC: (CPT 28810; principal; 2025-01-26 07:30)
DX: L97.524 Non-pressure chronic ulcer of other part of left foot with necrosis of bone (principal); M86.8X7 Other osteomyelitis, ankle and foot; L03.116 Cellulitis of left lower limb; G89.18 Other acute postprocedural pain; G60.9 Hereditary and idiopathic neuropathy, unspecified; F11.20 Opioid dependence, uncomplicated; F32.A Depression, unspecified; I10 Essential (primary) hypertension; E55.9 Vitamin D deficiency, unspecified; E78.1 Pure hyperglyceridemia; D64.9 Anemia, unspecified; F12.90 Cannabis use, unspecified, uncomplicated; B96.5 Pseudomonas (aeruginosa) (mallei) (pseudomallei) as the cause of diseases classified elsewhere; B37.2 Candidiasis of skin and nail; F17.210 Nicotine dependence, cigarettes, uncomplicated; Z79.899 Other long term (current) drug therapy
CPT/HCPCS: 28810; 36415; 80048; 80053; 85652; 87040; 88305; 93005; 96365; 99285; J3490; 83735; 85025; 85610; 86140; 87070; 87075; 87205; 88304; 88311; 93010; 99223; 99233; 99239; G0378; J0690; J1100; J1450; J1956; J2250; J2371; J2405; J2543; J2704